=== PATIENT | female | born 1965 | race American Indian/Alaskan Native ===

== ENCOUNTER 2019-05-03 09:32 | Inpatient (IN) | payer OTHER ==
[2019-05-03] MEDS ORDERED: MAGNESIUM HYDROXIDE (MOM) ORAL LIQD UDC PO PRN (12:03)
[2019-05-03] MEDS ORDERED: oxyCODONE /ACETAMINOPHEN 5-325MG TAB PO PRN (12:03)
[2019-05-03] MEDS ORDERED: SODIUM BICARBONATE 325 MG TAB FEEDTUBE PRN (12:24)
[2019-05-03] MEDS ORDERED: LIPASE 10,500/PROTEASE 25,000/AMYLASE 43,750 (UNITS) DR CAP FEEDTUBE PRN (12:24)
[2019-05-03] MEDS ORDERED: SIMPLE SYRUP 15 ML FEEDTUBE PRN ×2 (12:24)
[2019-05-03] MEDS ORDERED: ALBUTEROL 2.5 MG/3 ML NEBU IH PRN (12:28)
[2019-05-03] MEDS ORDERED: ONDANSETRON 4 MG/2 ML INJ IV PRN (12:28)
[2019-05-03] MEDS ORDERED: MAGNESIUM HYDROXIDE (MOM) ORAL LIQD UDC FEEDTUBE PRN (12:42)
[2019-05-03] MEDS ORDERED: GABAPENTIN 300 MG CAP FEEDTUBE SCH (14:00)
[2019-05-03] MEDS: hydrALAZINE 25 MG TAB FEEDTUBE SCH (14:41)
[2019-05-03] MEDS: cloNIDine 0.2 MG TAB FEEDTUBE SCH ×2 (14:42→22:09)
[2019-05-03] MEDS: GABAPENTIN 500 MG/10 ML ORAL LIQD PO SCH ×2 (14:43→22:11)
--- NOTE | 2019-05-03 15:52 | History and Physical Report ---
History of Present Illness Date: 05/03/19 Date of admission: 05/03/19 12:58 Chief Complaint: CVA History of present illness: 53-year-old female who developed weakness in the right lower extremity and started having falls reported ED for further workup. 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 This is thought to possibly due to either cardioembolic versus endocarditis versus accelerated atherosclerotic disease secondary to radiation with a right I CA occlusion area echo showed ejection fraction 55% with grade 1 diastolic dysfunction and no PFO or valvular vegetations. Blood cultures showed no growth ruling out endocarditis. Patient was did not have atrial fibrillation in the hospital but has been referred to a it service continuity supervisor as an outpatient for Holter monitoring for 30 days. She developed acute kidney injury which improved with IV fluids. Review of the roughly 120 pages of documents provided showed that she refused regular tube feedings even though she has a PEG. Apparently she was approved for clear liquids but she states that she still feels like she aspirates when attempting this. She was using commercial [id number] ensure bottles for nutrition following that with water and apple juice. After discussing with her the pitfalls with this and the determining that her primary issue with the tube feeds was the pump apparatus that was being used we have opted to start her on bolus feeding. We'll follow up with labs in the morning. She notes that she was taking Ambien for sleep however did not help that well in the hospital. We'll try trazodone and monitor for improvement. Also notes that her shoulder has been fairly sore but does not necessarily point to the shoulder joint itself more so on the bicep. Discussed with the patient the prognosis of stroke as well as secondary stroke prevention. Also discussed discharge home, available caregivers, and return to work issues. Obtain further information into patient's poorly controlled blood pressure which has been treated both by her it service continuity supervisor and PCP. She stated that they have both been working diligently to try and control it better but her pressure has been slow to respond and somewhat labile. Uncertain if she is fully compliant with medication doses. While we have the luxury of having her here on service we will monitor her blood pressure closely and attempt to provide some assistance with better control and reduce the number of medications if possible. After the patient was medically stabilized they were transferred for further rehabilitation. All available medical records have been reviewed. Approximately 120 pages of records were reviewed prior to acceptance of the patient. Corrections were made in the plan of care based on notes are obtained from neurologist versus hospitalist recommendations. In all greater than 45 minutes [id number] prior to seeing the patient was utilized reviewing the paperwork and correcting errors noted upon transfer. Plan of care was discussed with patient. Past History Past Medical History: anemia, cancer (adenocarcinoma of the nasopharynx), hypertension Past Surgical History: appendectomy, Other (tubal ligation, PEG tube placement) Social history: Lives alone (1 level house, 2 steps to enter), full code. denies: smoking, alcohol abuse (occasional alcohol), prescription drug abuse, IV drug use Family history: hypertension Medications and Allergies Allergies Allergy/AdvReac Type Severity Reaction Status Date / Time meperidine HCl [From Demerol] Allergy Anaphylaxis Verified 07/27/13 10:18 Home Medications Medication Instructions Recorded Confirmed Last Taken Type cloNIDine [Catapres] 0.1 mg PO Q12HR #60 tablet 07/28/13 08/08/13 08/07/13 Rx ALBUTEROL Inhaler (OR & NICU) 2 inhalation PO PRN PRN 08/08/13 08/08/13 08/07/13 History [ProAir HFA Inhaler] Losartan [Cozaar] 100 mg PO BID 08/08/13 08/08/13 08/07/13 History carvediloL [Coreg] 3.125 mg PO BID 08/08/13 08/08/13 08/07/13 History metroNIDAZOLE [Flagyl TAB] 500 mg PO BID 08/08/13 08/08/13 08/07/13 History predniSONE 10 mg PO QDAY 08/08/13 08/08/13 08/07/13 History Active Meds: Active Medications Albuterol (Proventil) 2.5 mg IH Q4HRT PRN PRN Reason: Shortness Of Breath Amlodipine Besylate (Amlodipine) 10 mg FEEDTUBE QDAY [facility] Lipase/Protease/Amylase (Vasile Marsh 10,500 Unit) 1 each FEEDTUBE PRN PRN PRN Reason: For Clogged Feeding Tube Aspirin (Baby Aspirin) 81 mg FEEDTUBE QDAY [facility] Atorvastatin Calcium (Lipitor) 40 mg FEEDTUBE QHS [facility] Bisacodyl (Dulcolax) 10 mg MD QDAY PRN PRN Reason: Constipation unrelieved by MOM Carvedilol (Coreg) 25 mg FEEDTUBE BID [facility] Clonidine HCl (Catapres) 0.2 mg FEEDTUBE TID [facility] Last Admin: 05/03/19 14:42 Dose: Not Given Documented by: Clopidogrel Bisulfate (Plavix) 75 mg FEEDTUBE QDAY [facility] Diclofenac Sodium (Diclofenac 1%) 1 applic TP TID [facility] Stop: 05/13/19 19:59 Enoxaparin Sodium (Enoxaparin) 40 mg SUB-Q QDAY [facility] Gabapentin (Gabapentin) 100 mg PO Q8HR [facility] Last Admin: 05/03/19 14:43 Dose: Not Given Documented by: Hydralazine HCl (Apresoline) 50 mg FEEDTUBE Q8HR [facility] Last Admin: 05/03/19 14:41 Dose: Not Given Documented by: Magnesium Hydroxide (Milk Of Magnesia) 30 ml FEEDTUBE Q4H PRN PRN Reason: Constipation Ondansetron HCl (Zofran) 4 mg IV Q4H PRN PRN Reason: Nausea And Vomiting Oxycodone/Acetaminophen (Percocet 5/325) 1 tab FEEDTUBE Q6H PRN PRN Reason: Pain, Moderate (4-6) Simple Syrup (Simple Syrup) 15 ml FEEDTUBE PRN PRN PRN Reason: Hypoglycemia Simple Syrup (Simple Syrup) 30 ml FEEDTUBE PRN PRN PRN Reason: Hypoglycemia Sodium Bicarbonate (Sodium Bicarbonate) 325 mg FEEDTUBE PRN PRN PRN Reason: For Clogged Feeding Tube Trazodone HCl (Desyrel) 50 mg PO QHS [facility] Review of Systems All systems: negative (ROS negative for 12 systems except as noted below with pertinent positives and negatives.) Constitutional: other (insomnia), no fever Eyes: bilateral: blurred vision Ears, nose, mouth and throat: dysphagia Cardiovascular: no chest pain, no palpitations, no edema, no shortness of breath Respiratory: no cough, no shortness of breath, no wheezing Gastrointestinal: other (PEG tube), no abdominal pain, no nausea, no vomiting, no diarrhea, no constipation Musculoskeletal: arm numbness/tingling, leg numbness/tingling, gait dysfunction, other (right knee misbah) Integumentary: other (PEG tube), no rash, no pruritis, no redness Neurological: weakness, parathesias, gait dysfunction, no change in speech, no change in mentation, no sensory deficit Psychiatric: change in sleep habits, insomnia, no anxiety, no memory loss Hematologic/Lymphatic: other (anemia) Exam - Exam Narrative exam: MUSCULOSKELETAL SPECIALTY EXAM CONSTITUTIONAL: Well developed, well nourished, appropriately groomed. RIGHT hand dominant. LYMPHATIC: No appreciable abnormalities palpable in neck RESPIRATORY: Clear to auscultation bilaterally, no increased work of breathing CARDIOVASCULAR: Regular Rate/ Rhythm, no swelling, edema or tenderness in BUE or BLE. Pulses palpable in all extremities. All extremities warm. GI: + bowel sounds, soft, NTTP, nondistended. PEG tube present INTEGUMENTARY: Normal, no lesion, rash, masses or bruising noted in extremities. MUSCULOSKELETAL: Point tenderness to palpation at the right anterior shoulder, otherwise BUE and BLE normal without defect, crepitus, subluxation, effusion, arthritic changes or TTP. RUE 4-/5 RLE 2/5 LUE / LLE 5/5 ROM decreased on right, within functional limit on the left Tone normal NEURO: CN II : Visual dillard full to confrontation CN II, III : PERRL CN III, IV, : EOMI CN V : Facial sensation intact CN VII : Symmetric facial expressions and eye closure CN VIII : Hearing intact to finger rustle CN IX, X : Palate/uvula elevate midline, phonation normal CN XI : Intact shoulder shrug and head rotation CN XII : Tongue protrudes midline Sensation intact in all extremities without extinction. Reflexes 3+ on right and 2+ on left at biceps, brachioradialis and patella. 2 beats of clonus at right ankle. Coordination intact in BUE, no dysmetria noted. No tremor noted in 4 extremities. Naming and repetition intact. Follows 2 step commands. 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 Balance appears reasonable. Gait deferred until seen with therapy. PSYCH: Alert, oriented x3, affect appears flat. Insight appears intact. - Constitutional Vitals: Vital Signs - 12hr 05/03/19 05/03/19 05/03/19 13:59 14:01 14:06 Temperature 36.7 C 36.7 C 36.7 C Pulse Rate 80 80 Pulse Rate [ 80 Left] Respiratory 18 18 18 Rate Blood Pressure Blood Pressure 109/64 [Left Arm] Blood Pressure 109/64 [Left] Blood Pressure 109/64 [Right] O2 Sat by Pulse 96 96 Oximetry 05/03/19 05/03/19 14:41 14:42 Temperature Pulse Rate Pulse Rate [ Left] Respiratory Rate Blood Pressure 109/64 109/64 Blood Pressure [Left Arm] Blood Pressure [Left] Blood Pressure [Right] O2 Sat by Pulse Oximetry Assessment and Plan Assessment and plan: Patient was assessed and evaluated for Acute Inpatient Rehab Unit. Due to the patients above-mentioned medical complexity, along with decreased functional mobility and self care, this patient continues to require and be appropriate for a comprehensive, multidisciplinary [id number] rehabilitati on program. These needs cannot be met in an outpatient or other less intensive setting. The patient would continue to benefit from skilled therapy intervention for at least 3 hours per day, five days a week, with techniques specific to the needs of the patient to improve function, activities of daily living, and reintegration into the community. The patient continues to require: -- OT to improve ROM, self-care, and learn use of adaptive equipment -- PT to improve strength and balance, functional transfers, and ambulation with energy conservation techniques to improve functional mobility -- UROLOGY SURGEON to address cognitive deficits and swallowing ability -- 24 hour RN to ensure and prevent skin breakdown, promote progressive independence while ensuring safety, ensure education regarding medications, and incorporation of the rehabilitation at the bedside -- 24 hour Configuration Analyst to coordinate this interdisciplinary program, and to manage/prevent complications as a result of the patients medical comorbidities. -Plan of care by day 4 -Weekly team conferences With such a program, there is a reasonable certainty that the goals individualized for this patient can be achieved within the specified length of stay. CVA dominant right luis m-paresis: Continue secondary stroke prevention (antithrombotic, statin (goal LDLsee less than 70), BP control (goal less than 140/90), glucose control (goal A1c less than 7), and lifestyle modification). Monitor for recurrent stroke or poststroke recrudescence. Continue neuromotor therapy as above. Family training when available. Monitor for post stroke depression, cognitive effects, seizure, dysfunction, aphasia, shoulder-hand syndrome, sensory deficits, spasticity, bowel/bladder deficits, sleep disturbance, vision deficits and DVT. Prognosis for recovery and secondary stroke prevention discussed. Follow-up with neurology at discharge. No driving until cleared by neurologist. Dysphagia: Continue PEG tube feedings. 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 We will D for retesting for swallowing. Patient notes that GI attempted esophageal dilatation however could not accomplish this. May be able to reattempt at a later date. Hypertension: Labile and poorly controlled. Both PCP and it service continuity supervisor working diligently on this as outpatient. We'll continue to attempt to control with this few meds possible. Blood pressure checks every 4 hours while awake. Hold orders placed on all antihypertensives. Left shoulder pain: Start Voltaren gel monitor for improvement. Ranging and strengthening per OT. Modalities as needed. Asthma: Continue albuterol nebulizers when necessary. Insomnia: Not better with Ambien at outside hospital. We'll start trazodone instead and monitor for improvement. Anemia: Monitor and replace components as needed. Transfusion for hemoglobin less than 7 Nutrition: Continue PEG feeds with bolus feeding. Dietitian consulted. Water flushes to avoid dehydration. Monitor labs on a frequent basis. PEG care per protocol. Z73.6 ADL dysfunction: OT will work on improving ability to perform ADLs (including assistive devices) to increase independence and decrease caregiver burden and improve functional transfers and mobility training. R26.2 Difficulty walking: PT will work on gait training and proper use of assistive devices and advance as appropriate to use of stairs and outside ambulation on uneven surfaces. R26.81 Unsteadiness on feet: PT will work on improving static and dynamic sitting and standing balance as well as proper use of assistive devices to decrease risk of falls. R26.89 Abnormality of gait: PT will work to improve safety and efficiency of gait through neuromotor training and gait training along with instruction on proper use of assistive devices. M62.81 Muscle weakness: PT & OT will work on strengthening exercises to improve functional strength including mixture of closed and open kinetic chain exercises. R53.81 Debility: PT & OT will work on improving overall functional status to improve participation with ADLs, mobility and social involvement. R53.83 Fatigue: PT & OT will work on improving endurance through aerobic exercises and therapeutic activity while monitoring patients tolerance for activity and vital signs as needed. DVT ppx: Lovenox, monitor closely for bleeding as she is on Plavix and aspirin as well Pain: Continue physical modalities in therapy and pain medications as needed to achieve functional pain control. Sleep: Monitor and address as needed. Bowel: Monitor and address as needed. Appetite: Monitor and address as needed. Discharge planning: Pending therapy progress and care plan meeting. Will continue discussion with therapy team, SW, patient and family. Restrictions/ Precautions: Falls, aspiration (NPO) WB status: FWB Functional Hx: ADLs: Independent Cognition: Independent Mobility: No AD Barriers to Discharge: Decreased mobility and ability to perform self care, balance deficits, weakness Estimated Length of Stay: 14-21 days Discharge Destination: Home alone with daughter to assist at discharge POST ADMISSION PHYSICIAN EVALUATION I have examined the patient and find that functional status, medical condition and appropriateness for IRF admission are essentially unchanged from those described in the preadmission screening. Will monitor for worsening CVA, neurlog ic decline, shoulder hand syndrone, post stroke depression, sleep disturbance, nutritional deficits, DVT/PE, bowel and bladder complications and complications due to hypertension, anemia, bleeding, renal dysfunction and electrolyte abnormalities. Will attempt to avoid occurrence of these issues or treat them if they present themselves.
[2019-05-03] MEDS: traZODone 50 MG TAB PO SCH (22:09)
[2019-05-03] MEDS: carvediloL 25 MG TAB FEEDTUBE SCH (22:10)
[2019-05-03] MEDS: DICLOFENAC SODIUM 1% TOPICAL GEL 100 GM TP SCH (22:13)
[2019-05-04] MEDS: hydrALAZINE 25 MG TAB FEEDTUBE SCH ×4 (04:11→22:28)
[2019-05-04] MEDS: GABAPENTIN 500 MG/10 ML ORAL LIQD PO SCH ×3 (06:10→22:33)
[2019-05-04] MEDS ORDERED: ENOXAPARIN 40 MG/0.4 ML INJ SUB-Q SCH (08:00)
--- NOTE | 2019-05-04 09:47 | Progress Note ---
Subjective Date of service: 05/04/19 Principal diagnosis: CVA Interval history: 53-year-old female who developed weakness in the right lower extremity and started having falls reported ED for further workup. 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 This is thought to possibly due to either cardioembolic versus endocarditis versus accelerated atherosclerotic disease secondary to radiation with a right ICA occlusion area echo showed ejection fraction 55% with grade 1 diastolic dysfunction and no PFO or valvular vegetations. Blood cultures showed no growth ruling out endocarditis. Patient was did not have atrial fibrillation in the hospital but has been referred to a reinforcement maker as an outpatient for Holter monitoring for 30 days. She developed acute kidney injury which improved with IV fluids. Review of the roughly 120 pages of documents provided showed that she refused regular tube feedings even though she has a PEG. Apparently she was approved for clear liquids but she states that she still feels like she aspirates when attempting this. She was using commercial [id number] ensure bottles for nutrition following that with water and apple juice. After discussing with her the pitfalls with this and the determining that her primary issue with the tube feeds was the pump apparatus that was being used we have opted to start her on bolus feeding. We'll follow up with labs in the morning. She notes that she was taking Ambien for sleep however did not help that well in the hospital. We'll try trazodone and monitor for improvement. Also notes that her shoulder has been fairly sore but does not necessarily point to the shoulder joint itself more so on the bicep. Patient is participating in therapy and making reasonable progress. Slept well last night on trazodone. Taking rest breaks as needed. -BM. Denies pain, palpitations, dyspnea, cough, N/V. States she was told not to get PEG wet - inserted Feb, needs to be cleaned, ok to shower. Tolerating feedings via bolus. Will monitor progress with therapy today. Labs pending All records, vitals, labs and medications were reviewed. No other issues per patient, nursing or therapy. Objective - Exam Narrative Exam: MUSCULOSKELETAL SPECIALTY EXAM CONSTITUTIONAL: Well developed, well nourished, appropriately groomed. RIGHT hand dominant. RESPIRATORY: Clear to auscultation bilaterally, no increased work of breathing CARDIOVASCULAR: Regular Rate/ Rhythm, no swelling, edema or tenderness in BUE or BLE. All extremities warm. GI: + bowel sounds, soft, NTTP, nondistended. PEG tube present INTEGUMENTARY: Normal, no lesion, rash, masses or bruising noted in extremities. MUSCULOSKELETAL: Point tenderness to palpation at the right anterior shoulder, otherwise BUE and BLE normal without defect, crepitus, subluxation, effusion, arthritic changes or TTP. RUE 4-/5 RLE 2/5 LUE / LLE 5/5 ROM decreased on right, within functional limit on the left Tone normal NEURO: CN II - XII grossly intact Sensation intact in all extremities without extinction. Coordination intact in BUE. No tremor noted in 4 extremities. Naming and repetition intact. Follows 2 step commands. 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 Balance appears reasonable. Gait deferred until seen with therapy. PSYCH: Alert, oriented x3, affect appears flat. Insight appears intact. - Constitutional Vitals: Vital Signs - 12hr 05/03/19 05/03/19 05/03/19 22:09 22:10 23:26 Temperature 36.4 C L Pulse Rate 77 77 72 Respiratory 16 Rate Blood Pressure 140/81 140/81 94/58 Blood Pressure [Left] O2 Sat by Pulse 97 Oximetry 05/04/19 05/04/19 06:02 06:54 Temperature 36.6 C 36.7 C Pulse Rate 66 70 Respiratory 16 20 Rate Blood Pressure 123/71 Blood Pressure 123/72 [Left] O2 Sat by Pulse 100 99 Oximetry - Allied health notes Allied health notes reviewed: nursing, ST Assessment and Plan CVA dominant right luis m-paresis: Continue secondary stroke prevention (antithrombotic, statin (goal LDLsee less than 70), BP control (goal less than 140/90), glucose control (goal A1c less than 7), and lifestyle modification). Monitor for recurrent stroke or poststroke recrudescence. Continue neuromotor therapy as above. Family training when available. Monitor for post stroke depression, cognitive effects, seizure, dysfunction, aphasia, shoulder-hand syndrome, sensory deficits, spasticity, bowel/bladder deficits, sleep disturbance, vision deficits and DVT. Prognosis for recovery and secondary stroke prevention discussed. Follow-up with neurology at discharge. No driving until cleared by neurologist. Dysphagia: Continue PEG tube feedings. 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 We will D for retesting for swallowing. Patient notes that GI attempted esophageal dilatation however could not accomplish this. May be able to reattempt at a later date. Hypertension: Labile and poorly controlled. Both PCP and reinforcement maker working diligently on this as outpatient. We'll continue to attempt to control with this few meds possible. Blood pressure checks every 4 hours while awake. Hold orders placed on all antihypertensives. Left shoulder pain: Start Voltaren gel monitor for improvement. Ranging and strengthening per OT. Modalities as needed. Asthma: Continue albuterol nebulizers when necessary. Insomnia: Not better with Ambien at outside hospital. We'll start trazodone instead and monitor for improvement. Anemia: Monitor and replace components as needed. Transfusion for hemoglobin less than 7 Nutrition: Continue PEG feeds with bolus feeding. Dietitian consulted. Water flushes to avoid dehydration. Monitor labs on a frequent basis. PEG care per protocol. Z73.6 ADL dysfunction: OT will work on improving ability to perform ADLs (including assistive devices) to increase independence and decrease caregiver burden and improve functional transfers and mobility training. R26.2 Difficulty walking: PT will work on gait training and proper use of assistive devices and advance as appropriate to use of stairs and outside ambulation on uneven surfaces. R26.81 Unsteadiness on feet: PT will work on improving static and dynamic sitting and standing balance as well as proper use of assistive devices to decrease risk of falls. R26.89 Abnormality of gait: PT will work to improve safety and efficiency of gait through neuromotor training and gait training along with instruction on proper use of assistive devices. M62.81 Muscle weakness: PT & OT will work on strengthening exercises to improve functional strength including mixture of closed and open kinetic chain exercises. R53.81 Debility: PT & OT will work on improving overall functional status to improve participation with ADLs, mobility and social involvement. R53.83 Fatigue: PT & OT will work on improving endurance through aerobic exercises and therapeutic activity while monitoring patients tolerance for activity and vital signs as needed. DVT ppx: Lovenox, monitor closely for bleeding as she is on Plavix and aspirin as well Pain: Continue physical modalities in therapy and pain medications as needed to achieve functional pain control. Sleep: Monitor and address as needed. Bowel: Monitor and address as needed. Appetite: Monitor and address as needed. Discharge planning: Pending therapy progress and care plan meeting. Will continue discussion with therapy team, SW, patient and family. Restrictions/ Precautions: Falls, aspiration (NPO) WB status: FWB Functional Hx: ADLs: Independent Cognition: Independent Mobility: No AD Barriers to Discharge: Decreased mobility and ability to perform self care, balance deficits, weakness Estimated Length of Stay: 14-21 days Discharge Destination: Home alone with daughter to assist at discharge
[2019-05-04] MEDS: DICLOFENAC SODIUM 1% TOPICAL GEL 100 GM TP SCH ×3 (10:46→22:38)
[2019-05-04] MEDS: CLOPIDOGREL 75 MG TAB FEEDTUBE SCH (10:47)
[2019-05-04] MEDS: ASPIRIN 81 MG TAB CHEW FEEDTUBE SCH (10:48)
[2019-05-04] MEDS: amLODIPine 10 MG TAB FEEDTUBE SCH (10:48)
[2019-05-04] MEDS: carvediloL 25 MG TAB FEEDTUBE SCH ×2 (10:48→22:28)
[2019-05-04] MEDS: cloNIDine 0.2 MG TAB FEEDTUBE SCH ×3 (10:48→22:28)
[2019-05-04] MEDS: oxyCODONE /ACETAMINOPHEN 5-325MG TAB FEEDTUBE PRN ×2 (13:43→22:33)
[2019-05-04 15:25] LABS: Basophils % (Auto) 0.5 % (0.0-1.8); Eosinophils # (Auto) 0.1 K/mm3 (0.0-0.4); Eosinophils % (Auto) 1.9 % (0.0-4.3); Hematocrit 30.4 % (30.3-42.9); Hemoglobin 10.4 gm/dl (10.1-14.3); Lymphocytes # (Auto) 0.4 K/mm3 (1.2-5.4); Lymphocytes % (Auto) 15.5 % (13.4-35.0); Mean Corpuscular HGB Conc 34 % (30-34); Mean Corpuscular Volume 90 fl (79-97); Monocytes # (Auto) 0.3 K/mm3 (0.0-0.8); Monocytes % (Auto) 12.3 % (0.0-7.3); Platelet Count 208 K/mm3 (140-440); Red Blood Count 3.36 M/mm3 (3.65-5.03); Red Cell Distribution Width 14.5 % (13.2-15.2)
[2019-05-04 16:45] LABS: Albumin 3.4 g/dL (3.9-5); Calcium 9.2 mg/dL (8.4-10.2); Prealbumin 0.308 g/L (0.200-0.400)
[2019-05-04] MEDS: traZODone 50 MG TAB PO SCH (22:27)
[2019-05-05] MEDS: hydrALAZINE 25 MG TAB FEEDTUBE SCH (05:07)
[2019-05-05] MEDS: GABAPENTIN 500 MG/10 ML ORAL LIQD PO SCH ×2 (05:08→14:52)
[2019-05-05] MEDS: DICLOFENAC SODIUM 1% TOPICAL GEL 100 GM TP SCH ×2 (08:44→15:49)
[2019-05-05] MEDS: carvediloL 25 MG TAB FEEDTUBE SCH ×2 (08:53→22:01)
[2019-05-05] MEDS: cloNIDine 0.2 MG TAB FEEDTUBE SCH ×3 (08:54→22:59)
[2019-05-05] MEDS: amLODIPine 10 MG TAB FEEDTUBE SCH (08:55)
[2019-05-05] MEDS: CLOPIDOGREL 75 MG TAB FEEDTUBE SCH (10:24)
[2019-05-05] MEDS: ASPIRIN 81 MG TAB CHEW FEEDTUBE SCH (10:24)
--- NOTE | 2019-05-05 11:01 | Progress Note ---
Subjective Date of service: 05/05/19 Principal diagnosis: CVA Interval history: 53-year-old female who developed weakness in the right lower extremity and started having falls reported ED for further workup. 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 This is thought to possibly due to either cardioembolic versus endocarditis versus accelerated atherosclerotic disease secondary to radiation with a right ICA occlusion area echo showed ejection fraction 55% with grade 1 diastolic dysfunction and no PFO or valvular vegetations. Blood cultures showed no growth ruling out endocarditis. Patient was did not have atrial fibrillation in the hospital but has been referred to a [facility] as an outpatient for Holter monitoring for 30 days. She developed acute kidney injury which improved with IV fluids. Review of the roughly 120 pages of documents provided showed that she refused regular tube feedings even though she has a PEG. Apparently she was approved for clear liquids but she states that she still feels like she aspirates when attempting this. She was using commercial [id number] ensure bottles for nutrition following that with water and apple juice. After di scussing with her the pitfalls with this and the determining that her primary issue with the tube feeds was the pump apparatus that was being used we have opted to start her on bolus feeding. We'll follow up with labs in the morning. She notes that she was taking Ambien for sleep however did not help that well in the hospital. We'll try trazodone and monitor for improvement. Also notes that her shoulder has been fairly sore but does not necessarily point to the shoulder joint itself more so on the bicep. Patient is participating in therapy and making reasonable progress. Slept well last night on trazodone. Taking rest breaks as needed. -BM. Patient has when necessary's available, asked nursing to provide these. Blood pressure has been running lower and meds have been held. We will DC hydralazine and look to adjust other medications as possible. Suspect there was some noncompliance involved previously. Right shoulder pain. Decrease ability to tolerate passive ROM. Previous fall before CVA. Will check XR to look for fracture. Denies palpitations, dyspnea, cough, N/V. Tolerating feedings via bolus. Labs reviewed, late results from yesterday. Have stopped Lovenox and changed to heparin due to renal function. Discussed today during team conference. Just completed E valves yesterday. We'll continue to work with the patient for estimated length of stay of 14-21 days. Further updates with more time during therapy. All records, vitals, labs and medications were reviewed. No other issues per patient, nursing or therapy. Objective - Exam Narrative Exam: MUSCULOSKELETAL SPECIALTY EXAM CONSTITUTIONAL: Well developed, well nourished, appropriately groomed. RIGHT hand dominant. RESPIRATORY: Clear to auscultation bilaterally, no increased work of breathing CARDIOVASCULAR: Regular Rate/ Rhythm, no swelling, edema or tenderness in BUE or BLE. All extremities warm. GI: + bowel sounds, soft, NTTP, nondistended. PEG tube present INTEGUMENTARY: Normal, no lesion, rash, masses or bruising noted in extremities. MUSCULOSKELETAL: Point tenderness to palpation at the right anterior shoulder, otherwise BUE and BLE normal without defect, crepitus, subluxation, effusion, arthritic changes or TTP. RUE 4-/5 RLE 2/5 LUE / LLE 5/5 ROM decreased on right, within functional limit on the left Tone normal NEURO: CN II - XII grossly intact Sensation intact in all extremities without extinction. Coordination intact in BUE. No tremor noted in 4 extremities. Naming and repetition intact. Follows 2 step commands. 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 Balance appears reasonable. Gait deferred until seen with therapy. PSYCH: Alert, oriented x3, affect appears flat. Insight appears intact. - Constitutional Vitals: Vital Signs - 12hr 05/05/19 05/05/19 05/05/19 00:53 04:28 04:45 Temperature 36.3 C L 36.4 C L 36.6 C Pulse Rate 79 48 L Respiratory 16 16 Rate Blood Pressure 91/59 108/73 O2 Sat by Pulse 98 98 Oximetry 05/05/19 05/05/19 05:07 08:10 Temperature 36.7 C Pulse Rate 77 Respiratory 18 Rate Blood Pressure 108/73 102/62 O2 Sat by Pulse 98 Oximetry - Allied health notes Allied health notes reviewed: nursing, PT, ST, OT FIMS assessment as documented by PT/OT/ST: Locomotion- walk/wheelchair Ambulation Distance 25 - Labs CBC & Chem 7: 05/04/19 15:10 05/04/19 15:10 Labs: Laboratory Results - last 72 hr 05/04/19 05/04/19 05/05/19 15:10 15:10 08:21 WBC 2.7 L RBC 3.36 L Hgb 10.4 Hct 30.4 MCV 90 MCH 31 MCHC 34 RDW 14.5 Plt Count 208 Lymph % (Auto) 15.5 [place] % (Auto) 12.3 H Eos % (Auto) 1.9 Baso % (Auto) 0.5 Lymph # 0.4 L [place] # 0.3 Eos # 0.1 Baso # 0.0 Seg Neutrophils % 69.8 Seg Neutrophils # 1.9 Sodium 135 L Potassium 4.5 Chloride 97.4 L Carbon Dioxide 24 Anion Gap 18 BUN 26 H Creatinine 1.5 H Estimated GFR 44 BUN/Creatinine Ratio 17 Glucose 177 H POC Glucose 109 H Calcium 9.2 Phosphorus 3.50 Magnesium 2.10 Total Bilirubin 0.20 AST 19 ALT 16 Alkaline Phosphatase 87 Total Protein 7.1 Albumin 3.4 L Albumin/Globulin Ratio 0.9 Prealbumin 0.308 Assessment and Plan CVA dominant right luis m-paresis: Continue secondary stroke prevention (antithrombotic, statin (goal LDLsee less than 70), BP control (goal less than 140/90), glucose control (goal A1c less than 7), and lifestyle modification). Monitor for recurrent stroke or poststroke recrudescence. Continue neuromotor therapy as above. Family training when available. Monitor for post stroke depression, cognitive effects, seizure, dysfunction, aphasia, shoulder-hand syndrome, sensory deficits, spasticity, bowel/bladder deficits, sleep disturbance, vision deficits and DVT. Prognosis for recovery and secondary stroke prevention discussed. Follow-up with neurology at discharge. No driving until cleared by neurologist. Dysphagia: Continue PEG tube feedings. 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 We will D for retesting for swallowing. Patient notes that GI attempted esophageal dilatation however could not accomplish this. May be able to reattempt at a later date. Hypertension: Labile and poorly controlled. Both PCP and [facility] working diligently on this as outpatient. We'll continue to attempt to control with this few meds possible. Blood pressure checks every 4 hours while awake. Hold orders placed on all antihypertensives. Stop hydralazine. Left shoulder pain: Start Voltaren gel monitor for improvement. Ranging and strengthening per OT. Modalities as needed. X-ray right shoulder. Asthma: Continue albuterol nebulizers when necessary. Insomnia: Not better with Ambien at outside hospital. Seems to be improved with trazodone, continue to monitor Anemia: Monitor and replace components as needed. Transfusion for hemoglobin less than 7 Nutrition: Continue PEG feeds with bolus feeding. Dietitian consulted. Water flushes to avoid dehydration. Monitor labs on a frequent basis. PEG care per protocol. Z73.6 ADL dysfunction: OT will work on improving ability to perform ADLs (including assistive devices) to increase independence and decrease caregiver b urden and improve functional transfers and mobility training. R26.2 Difficulty walking: PT will work on gait training and proper use of assistive devices and advance as appropriate to use of stairs and outside ambulation on uneven surfaces. R26.81 Unsteadiness on feet: PT will work on improving static and dynamic sitting and standing balance as well as proper use of assistive devices to decrease risk of falls. R26.89 Abnormality of gait: PT will work to improve safety and efficiency of gait through neuromotor training and gait training along with instruction on proper use of assistive devices. M62.81 Muscle weakness: PT & OT will work on strengthening exercises to improve functional strength including mixture of closed and open kinetic chain exercises. R53.81 Debility: PT & OT will work on improving overall functional status to improve participation with ADLs, mobility and social involvement. R53.83 Fatigue: PT & OT will work on improving endurance through aerobic exercises and therapeutic activity while monitoring patients tolerance for activity and vital signs as needed. DVT ppx: Heparin, monitor closely for bleeding as she is on Plavix and aspirin as well Pain: Continue physical modalities in therapy and pain medications as needed to achieve functional pain control. Sleep: Monitor and address as needed. Bowel: Monitor and address as needed. Appetite: Monitor and address as needed. Discharge planning: Pending therapy progress and care plan meeting. Will continue discussion with therapy team, SW, patient and family. Restrictions/ Precautions: Falls, aspiration (NPO) WB status: FWB Functional Hx: ADLs: Independent Cognition: Independent Mobility: No AD Barriers to Discharge: Decreased mobility and ability to perform self care, balance deficits, weakness Estimated Length of Stay: 14-21 days Discharge Destination: Home alone with daughter to assist at discharge
[2019-05-05] MEDS ORDERED: hydrALAZINE 20 MG/1 ML INJ IV PRN (11:57)
--- NOTE | 2019-05-05 15:13 | XRay Report ---
RIGHT SHOULDER HISTORY: Pain and decreased range of motion. COMPARISON: None. TECHNIQUE: 3 views of the right shoulder were obtained. FINDINGS: Bones: No fracture or dislocation. Joint spaces: Maintained. Mild degenerative change. Soft tissues: No significant abnormality. Additional findings: None. IMPRESSION: 1. No significant abnormality. Signer Name: Lex Finn MD Signed: 05/05/2019 3:08 PM Workstation Name: [id number]
[2019-05-05] MEDS: HEPARIN 5,000 UNIT/1 ML VIAL SUB-Q SCH ×2 (16:45→23:01)
[2019-05-05] MEDS: oxyCODONE /ACETAMINOPHEN 5-325MG TAB FEEDTUBE PRN (16:59)
[2019-05-05] MEDS: traZODone 50 MG TAB PO SCH (23:00)
[2019-05-06] MEDS: oxyCODONE /ACETAMINOPHEN 5-325MG TAB FEEDTUBE PRN ×2 (00:11→11:42)
[2019-05-06] MEDS: GABAPENTIN 500 MG/10 ML ORAL LIQD PO SCH ×2 (00:16→07:46)
[2019-05-06] MEDS: DICLOFENAC SODIUM 1% TOPICAL GEL 100 GM TP SCH ×4 (00:17→20:00)
[2019-05-06] MEDS: HEPARIN 5,000 UNIT/1 ML VIAL SUB-Q SCH ×3 (07:45→22:08)
--- NOTE | 2019-05-06 09:56 | Progress Note ---
Subjective Date of service: 05/06/19 Principal diagnosis: CVA Interval history: 53-year-old female who developed weakness in the right lower extremity and started having falls reported ED for further workup. 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 This is thought to possibly due to either cardioembolic versus endocarditis versus accelerated atherosclerotic disease secondary to radiation with a right ICA occlusion area echo showed ejection fraction 55% with grade 1 diastolic dysfunction and no PFO or valvular vegetations. Blood cultures showed no growth ruling out endocarditis. Patient was did not have atrial fibrillation in the hospital but has been referred to a [facility] as an outpatient for Holter monitoring for 30 days. She developed acute kidney injury which improved with IV fluids. Review of the roughly 120 pages of documents provided showed that she refused regular tube feedings even though she has a PEG. Apparently she was approved for clear liquids but she states that she still feels like she aspirates when attempting this. She was using commercial [id number] ensure bottles for nutrition following that with water and apple juice. After di scussing with her the pitfalls with this and the determining that her primary issue with the tube feeds was the pump apparatus that was being used we have opted to start her on bolus feeding. We'll follow up with labs in the morning. She notes that she was taking Ambien for sleep however did not help that well in the hospital. We'll try trazodone and monitor for improvement. Also notes that her shoulder has been fairly sore but does not necessarily point to the shoulder joint itself more so on the bicep. Patient is participating in therapy and making reasonable progress. Tolerating trazodone, did not sleep as well last night. Taking rest breaks as needed. - BM. Patient has PRN available, but not being offered. Will schedule miralax. Antihypertensives held, vitals not in vitals section, in nurses note but not identified with time. Discussed with nursing and asked that vitals be checked Q4h as ordered, charted under vitals and medication parameters to be followed. Nursing is welcome to call if they feel uncomfortable giving a medication and discuss it with me. BP is pretty labile in this patient previously and I am attempting to regulate it on a regular schedule before she is discharged. Right shoulder pain continues. Decreased ability to tolerate passive ROM. Pre vious fall before CVA. XR reviewed and shows no fracture, there is OA. Continue to improve ROM, strengthening and Voltaren gel. Increased secretions due to radiation. Will arrange for bedside suction - she uses it at home as well. Denies palpitations, dyspnea, cough, N/V. Tolerating feedings via bolus. Labs reviewed. All records, vitals, labs and medications were reviewed. No other issues per patient, nursing or therapy. Objective - Exam Narrative Exam: MUSCULOSKELETAL SPECIALTY EXAM CONSTITUTIONAL: Well developed, well nourished, appropriately groomed. RIGHT hand dominant. RESPIRATORY: Clear to auscultation bilaterally, no increased work of breathing CARDIOVASCULAR: Regular Rate/ Rhythm, no swelling, edema or tenderness in BUE or BLE. All extremities warm. GI: + bowel sounds, soft, NTTP, nondistended. PEG tube present Increased Oral secretions INTEGUMENTARY: Normal, no lesion, rash, masses or bruising noted in extremities. MUSCULOSKELETAL: Point tenderness to palpation at the right anterior shoulder, otherwise BUE and BLE normal without defect, crepitus, subluxation, effusion, arthritic changes or TTP. RUE 4-/5 RLE 2/5 LUE / LLE 5/5 ROM decreased on right, within functional limit on the left Tone normal NEURO: CN II - XII grossly intact Sensation intact in all extremities without extinction. Coordination intact in BUE. No tremor noted in 4 extremities. Naming and repetition intact. Follows 2 step commands. 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 Balance appears reasonable. Gait deferred until seen with therapy. PSYCH: Alert, oriented x3, affect appears flat. Insight appears intact. - Constitutional Vitals: Vital Signs - 12hr 05/06/19 05/06/19 05/06/19 00:22 04:26 05:03 Temperature 36.4 C 36.6 C Pulse Rate 77 73 74 Respiratory 16 16 Rate Blood Pressure 141/82 Blood Pressure 116/72 [Right] O2 Sat by Pulse 98 97 98 Oximetry 05/06/19 08:24 Temperature 36.6 C Pulse Rate 79 Respiratory 18 Rate Blood Pressure 166/86 Blood Pressure [Right] O2 Sat by Pulse 100 Oximetry - Allied health notes Allied health notes reviewed: nursing, PT, OT FIMS assessment as documented by PT/OT/ST: Social interaction/Memory/Problem solving Memory FIM Score 5. Supervision (Needs cueing <10%, stressful/ unfamiliar situations.) Problem Solving FIM Score 5. Supervision (Needs cueing <10% to solve routine problems.) Locomotion- walk/wheelchair Ambulation Distance 25 - Labs CBC & Chem 7: 05/04/19 15:10 05/04/19 15:10 Labs: Laboratory Results - last 72 hr 05/04/19 05/04/19 05/05/19 15:10 15:10 08:21 WBC 2.7 L RBC 3.36 L Hgb 10.4 Hct 30.4 MCV 90 MCH 31 MCHC 34 RDW 14.5 Plt Count 208 Lymph % (Auto) 15.5 [place] % (Auto) 12.3 H Eos % (Auto) 1.9 Baso % (Auto) 0.5 Lymph # 0.4 L [place] # 0.3 Eos # 0.1 Baso # 0.0 Seg Neutrophils % 69.8 Seg Neutrophils # 1.9 Sodium 135 L Potassium 4.5 Chloride 97.4 L Carbon Dioxide 24 Anion Gap 18 BUN 26 H Creatinine 1.5 H Estimated GFR 44 BUN/Creatinine Ratio 17 Glucose 177 H POC Glucose 109 H Calcium 9.2 Phosphorus 3.50 Magnesium 2.10 Total Bilirubin 0.20 AST 19 ALT 16 Alkaline Phosphatase 87 Total Protein 7.1 Albumin 3.4 L Albumin/Globulin Ratio 0.9 Prealbumin 0.308 Assessment and Plan CVA dominant right luis m-paresis: Continue secondary stroke prevention (antithrombotic, statin (goal LDLsee less than 70), BP control (goal less than 140/90), glucose control (goal A1c less than 7), and lifestyle modification). Monitor for recurrent stroke or poststroke recrudescence. Continue neuromotor therapy as above. Family training when available. Monitor for post stroke depression, cognitive effects, seizure, dysfunction, aphasia, shoulder-hand syndrome, sensory deficits, spasticity, bowel/bladder deficits, sleep disturbance, vision deficits and DVT. Prognosis for recovery and secondary stroke prevention discussed. Follow-up with neurology at discharge. No driving until cleared by neurologist. Dysphagia: Continue PEG tube feedings. 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 We will D for retesting for swallowing. Patient notes that GI attempted esophageal dilatation however could not accomplish this. May be able to reattempt at a later date. Hypertension: Labile and poorly controlled. Both PCP and skylights assembler working diligently on this as outpatient. We'll continue to attempt to control with this few meds possible. Blood pressure checks every 4 hours while awake. Hold orders placed on all antihypertensives. Hydralazine prn only now. Left shoulder pain: Start Voltaren gel monitor for improvement. Ranging and strengthening per OT. Modalities as needed. X-ray right shoulder NEG for Fx, OA. Asthma: Continue albuterol nebulizers when necessary. Insomnia: Not better with Ambien at outside hospital. Seems to be improved with trazodone, continue to monitor Anemia: Monitor and replace components as needed. Transfusion for hemoglobin less than 7 Nutrition: Continue PEG feeds with bolus feeding. Dietitian consulted. Water flushes to avoid dehydration. Monitor labs on a frequent basis. PEG care per protocol. Z73.6 ADL dysfunction: OT will work on improving ability to perform ADLs (including assistive devices) to increase independence and decrease caregiver burden and improve functional transfers and mobility training. R26.2 Difficulty walking: PT will work on gait training and proper use of assistive devices and advance as appropriate to use of stairs and outside ambulation on uneven surfaces. R26.81 Unsteadiness on feet: PT will work on improving static and dynamic sitting and standing balance as well as proper use of assistive devices to decrease risk of falls. R26.89 Abnormality of gait: PT will work to improve safety and efficiency of gait through neuromotor training and gait training along with instruction on proper use of assistive devices. M62.81 Muscle weakness: PT & OT will work on strengthening exercises to improve functional strength including mixture of closed and open kinetic chain exercises. R53.81 Debility: PT & OT will work on improving overall functional status to improve participation with ADLs, mobility and social involvement. R53.83 Fatigue: PT & OT will work on improving endurance through aerobic exercises and therapeutic activity while monitoring patients tolerance for activity and vital signs as needed. DVT ppx: Heparin, monitor closely for bleeding as she is on Plavix and aspirin as well Pain: Continue physical modalities in therapy and pain medications as needed to achieve functional pain control. Sleep: Monitor and address as needed. Bowel: Monitor and address as needed. Appetite: Monitor and address as needed. Discharge planning: Pending therapy progress and care plan meeting. Will continue discussion with therapy team, SW, patient and family. Restrictions/ Precautions: Falls, aspiration (NPO) WB status: FWB Functional Hx: ADLs: Independent Cognition: Independent Mobility: No AD Barriers to Discharge: Decreased mobility and ability to perform self care, gerson nce deficits, weakness Estimated Length of Stay: 14-21 days Discharge Destination: Home alone with daughter to assist at discharge
[2019-05-06] MEDS: POLYETHYLENE GLYCOL 3350 17 GM POWDER FEEDTUBE SCH (11:41)
[2019-05-06] MEDS: amLODIPine 10 MG TAB FEEDTUBE SCH (11:41)
[2019-05-06] MEDS: cloNIDine 0.2 MG TAB FEEDTUBE SCH ×3 (11:42→22:07)
[2019-05-06] MEDS: CLOPIDOGREL 75 MG TAB FEEDTUBE SCH (11:42)
[2019-05-06] MEDS: ASPIRIN 81 MG TAB CHEW FEEDTUBE SCH (11:42)
[2019-05-06] MEDS: carvediloL 25 MG TAB FEEDTUBE SCH ×2 (11:43→22:05)
--- NOTE | 2019-05-06 11:48 | IRU Plan of Care ---
Interdisciplinary Plan of Care - IP IRU INTERDISCIPLINARY PLAN: [facility] Inpatient Rehab Unit Plan of Care IRU Interdisciplinary Care Plan Start: 05/03/19 13:07 Freq: Admission then PRN Status: Active Protocol: Document 05/06/19 10:39 TH (Rec: 05/06/19 10:44 TH [id number]) Interdisciplinary Problem List Interdisciplinary Problem List Interdisciplinary Problem List Impaired Bathing/Grooming, Query Text:Answers will Trigger Problems Impaired Dressing,Impaired and Outcomes on Worklist. Mobility,Impaired Transfers, Impaired Home Management, Impaired Safety IRU Interdisciplinary Care Plan Therapy Services Therapy Services Will Include: Physical Therapy,Occupational Query Text:Patient will be seen for a Therapy minimum of 3 hours of daily therapy 5 out of 7 days a week. Therapy intensity may be adjusted within a 7 consecutive day period to effectively serve the individual needs of the patient. Treatment Frequency/Intensity/Duration Treatment Frequency 5days/week Treatment Intensity 3 hours per day Treatment Duration 14-21 days Problem Area: Eating/Swallowing Eating/Swallowing Outcomes Eating/Swallowing Interventions Problem Area: Bathing/Grooming Bathing/Grooming Outcomes Improve [place] w/ Grooming,Improve [place] w/ Bathing Bathing/Grooming Interventions ADL Training,Use of Assistive Devices,Therapeutic Exercise, Therapeutic Activity, Neuromuscular Re-Education, Balance Work,Activity Tolerance Work Problem Area: Dressing Dressing Outcomes Dressing Interventions Problem Area: Mobility Mobility Outcomes Improve [place] w/ Bed Mobility,Improve [place] w/ Ambulation,Improve [place] w/ Stairs/Curb, Improve [place] w/ Wheelchair Mobility Interventions Therapeutic Exercise, Neuromuscular Re-Ed.,Activity Tolerance Work,Use of Assistive Devices,Patient/ Caregiver Education,Bed Mobility Work,Household Mobility Work Problem Area: Transfers Transfers Outcomes Improve [place] w/ Bed Transfers,Improve [place] w/ Toilet Transfers,Improve [place] w/ Tub/Shower Transfers,Improve [place] w/ Car Transfers Transfers Interventions Transfer Training,Therapeutic Exercise,Neuromuscular Re- Education,Activity Tolerance Work,Use of Assistive Devices, Patient/Caregiver Education Problem Area: Bowel/Bladder Managment Bowel/Bladder Outcomes Bowel/Bladder Interventions Problem Area: Toileting Toileting Outcomes Improve [place] w/ Toileting Toileting Interventions ADL Training,Balance Work,Use of Assistive Devices,Patient/ Caregiver Education Problem Area: Nutrition Nutrition Outcomes Nutrition Interventions Problem Area: Comprehension Comprehension Outcomes Comprehension Interventions Problem Area: Expression Expression Outcomes Expression Interventions Problem Area: Problem Solving Problem Solving Outcomes Improve Problem Solving Problem Solving Interventions Safety Education,Patient/ Caregiver Education Problem Area: Memory Memory Outcomes Memory Interventions Problem Area: Pain Management Pain Management Outcomes Pain Management Interventions Problem Area: Knowledge Deficits Knowledge Deficits Outcomes Knowledge Deficits Interventions Problem Area: Skin/Tissue Integrity Skin/Tissue Integrity Outcomes Skin/Tissue Integrity Interventions Problem Area: Social Interaction Social Interaction Outcomes Social Interaction Interventions Problem Area: Adjustment to Disability Adjustment to Disability Outcomes Adjustment to Disability Interventions Problem Area: Discharge Concerns Discharge Concerns Outcomes Discharge w/ Necessary Equipment,Have Home Health/ Outpatient Services Discharge Concerns Interventions Discharge Planning,Family/ Caregiver Conference,Family/ Caregiver Training Problem Area: Community Reintegration Community Reintegration Outcomes Demonstrate Understanding of Community Resources,Able to Re -Enter the Community Community Reintegration Interventions Activity Tolerance Work, Leisure Activity Problem Area: Home Management Home Management Outcomes Improve [place] w/ Home Management Home Management Interventions Meal Preparation,Clothing Care ,Activity Tolerance Work, Leisure Skills Development, House Cleaning Problem Area: Safety Safety Outcomes Provide Safe Environment, Perform Selfcare Safely, Demonstrate Good Safety w/ Transfers/Mobility Safety Interventions Identify Fall Risk,[place] Pt. to Environment,Reduce Environmental Hazards,Neuro Check Assessment,Implement Mechanical Devices, i.e. Chair Alarm (Post Fall Update),Re- Educate Patient/Caregiver for Safety (Post Fall Update) Problem Area: Medication Education Medication Education Outcomes Medication Education Interventions Problem Area: Diabetes Education Diabetes Education Outcomes Diabetes Education Interventions Problem Area: Oxygenation Oxygenation Outcomes Oxygenation Interventions Problem Area: Cardiovascular Cardiovascular Outcomes Cardiovascular Interventions Physician Only Medical Prognosis and Rehabilitation Potential (Completed by Physician) Good rehab potential, fair overall medical prognosis. 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 Has poorly controlled/labile hypertension which we will hopefully be able to assist her home physicians with during her time here in finding a better route to control. Overall she is participatory and eager to get better which bodes well for her. This plan of care has been developed based on the findings from the pre- admission assessment, post admission physician evaluation, information gathered from the assessments from all therapy disciplines and other pertinent clinicians. The plan of care has been reviewed and discussed in collaboration with the interdisciplinary team. The plan of care will be reviewed and updated at least weekly.
[2019-05-06] MEDS: GABAPENTIN 500 MG/10 ML ORAL LIQD FEEDTUBE SCH ×2 (15:11→22:05)
[2019-05-06] MEDS: traZODone 50 MG TAB PO SCH (21:00)
[2019-05-07] MEDS: GABAPENTIN 500 MG/10 ML ORAL LIQD FEEDTUBE SCH ×3 (06:25→22:13)
[2019-05-07] MEDS: HEPARIN 5,000 UNIT/1 ML VIAL SUB-Q SCH ×3 (06:25→22:13)
[2019-05-07] MEDS: CLOPIDOGREL 75 MG TAB FEEDTUBE SCH (08:39)
[2019-05-07] MEDS: ASPIRIN 81 MG TAB CHEW FEEDTUBE SCH (08:39)
[2019-05-07] MEDS: POLYETHYLENE GLYCOL 3350 17 GM POWDER FEEDTUBE SCH (08:40)
[2019-05-07] MEDS: oxyCODONE /ACETAMINOPHEN 5-325MG TAB FEEDTUBE PRN ×2 (08:42→16:14)
[2019-05-07] MEDS: DICLOFENAC SODIUM 1% TOPICAL GEL 100 GM TP SCH ×3 (08:45→20:00)
[2019-05-07] MEDS: cloNIDine 0.2 MG TAB FEEDTUBE SCH ×3 (08:58→21:00)
[2019-05-07] MEDS: amLODIPine 10 MG TAB FEEDTUBE SCH (08:58)
[2019-05-07] MEDS: carvediloL 25 MG TAB FEEDTUBE SCH ×2 (08:58→22:15)
[2019-05-07] MEDS: traZODone 50 MG TAB PO SCH (21:00)
[2019-05-08] MEDS: GABAPENTIN 500 MG/10 ML ORAL LIQD FEEDTUBE SCH ×3 (06:00→22:39)
[2019-05-08] MEDS: HEPARIN 5,000 UNIT/1 ML VIAL SUB-Q SCH ×3 (06:00→22:37)
[2019-05-08] MEDS: cloNIDine 0.2 MG TAB FEEDTUBE SCH ×3 (09:26→22:19)
[2019-05-08] MEDS: DICLOFENAC SODIUM 1% TOPICAL GEL 100 GM TP SCH ×3 (09:50→20:52)
[2019-05-08] MEDS: CLOPIDOGREL 75 MG TAB FEEDTUBE SCH (11:25)
[2019-05-08] MEDS: carvediloL 25 MG TAB FEEDTUBE SCH ×2 (11:25→22:18)
[2019-05-08] MEDS: ASPIRIN 81 MG TAB CHEW FEEDTUBE SCH (11:25)
[2019-05-08] MEDS: oxyCODONE /ACETAMINOPHEN 5-325MG TAB FEEDTUBE PRN ×2 (11:25→19:59)
[2019-05-08] MEDS: amLODIPine 10 MG TAB FEEDTUBE SCH (11:26)
[2019-05-08] MEDS: POLYETHYLENE GLYCOL 3350 17 GM POWDER FEEDTUBE SCH (11:26)
[2019-05-08] MEDS: traZODone 50 MG TAB PO SCH (22:39)
[2019-05-09] MEDS: HEPARIN 5,000 UNIT/1 ML VIAL SUB-Q SCH ×3 (05:53→21:26)
[2019-05-09] MEDS: GABAPENTIN 500 MG/10 ML ORAL LIQD FEEDTUBE SCH ×3 (05:54→21:25)
[2019-05-09 08:02] LABS: Calcium 9.8 mg/dL (8.4-10.2)
[2019-05-09] MEDS: DICLOFENAC SODIUM 1% TOPICAL GEL 100 GM TP SCH ×3 (08:07→21:58)
[2019-05-09] MEDS: oxyCODONE /ACETAMINOPHEN 5-325MG TAB FEEDTUBE PRN ×3 (08:54→21:35)
[2019-05-09] MEDS: POLYETHYLENE GLYCOL 3350 17 GM POWDER FEEDTUBE SCH (08:54)
[2019-05-09] MEDS: amLODIPine 10 MG TAB FEEDTUBE SCH (08:54)
[2019-05-09] MEDS: carvediloL 25 MG TAB FEEDTUBE SCH ×2 (08:54→21:40)
[2019-05-09] MEDS: CLOPIDOGREL 75 MG TAB FEEDTUBE SCH (08:54)
[2019-05-09] MEDS: cloNIDine 0.2 MG TAB FEEDTUBE SCH ×3 (08:54→21:32)
[2019-05-09] MEDS: ASPIRIN 81 MG TAB CHEW FEEDTUBE SCH (08:54)
--- NOTE | 2019-05-09 13:48 | Progress Note ---
Subjective Date of service: 05/09/19 Principal diagnosis: CVA Interval history: 53-year-old female who developed weakness in the right lower extremity and started having falls reported ED for further workup. 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 This is thought to possibly due to either cardioembolic versus endocarditis versus accelerated atherosclerotic disease secondary to radiation with a right ICA occlusion area echo showed ejection fraction 55% with grade 1 diastolic dysfunction and no PFO or valvular vegetations. Blood cultures showed no growth ruling out endocarditis. Patient was did not have atrial fibrillation in the hospital but has been referred to a private secretary as an outpatient for Holter monitoring for 30 days. She developed acute kidney injury which improved with IV fluids. Review of the roughly 120 pages of documents provided showed that she refused regular tube feedings even though she has a PEG. Apparently she was approved for clear liquids but she states that she still feels like she aspirates when attempting this. She was using commercial [id number] ensure bottles for nutrition following that with water and apple juice. After di scussing with her the pitfalls with this and the determining that her primary issue with the tube feeds was the pump apparatus that was being used we have opted to start her on bolus feeding. We'll follow up with labs in the morning. She notes that she was taking Ambien for sleep however did not help that well in the hospital. We'll try trazodone and monitor for improvement. Also notes that her shoulder has been fairly sore but does not necessarily point to the shoulder joint itself more so on the bicep. Patient is participating in therapy and making reasonable progress. Tolerating trazodone, did not sleep as well last night. Taking rest breaks as needed. - BM. Patient has PRN available, but not being offered. Will schedule miralax. Antihypertensives being held. Is having some elevated BP at times. Will adjust clonidine and attempt to provide more stable coverage. BP is pretty labile in this patient previously and I am attempting to regulate it on a regular schedule before she is discharged. Right shoulder pain continues. Decreased ability to tolerate passive ROM. Previous fall before CVA. ROM slightly better today. Continue to improve ROM, strengthening and Voltaren gel. Denies palpitations, dyspnea, cough, N/V. Tolerating feedings via bolus. All records, vitals, labs and medications were reviewed. No other issues per patient, nursing or therapy. Objective - Exam Narrative Exam: MUSCULOSKELETAL SPECIALTY EXAM CONSTITUTIONAL: Well developed, well nourished, appropriately groomed. RIGHT hand dominant. RESPIRATORY: Clear to auscultation bilaterally, no increased work of breathing CARDIOVASCULAR: Regular Rate/ Rhythm, no swelling, edema or tenderness in BUE or BLE. All extremities warm. GI: + bowel sounds, soft, NTTP, nondistended. PEG tube present INTEGUMENTARY: Normal, no lesion, rash, masses or bruising noted in extremities. MUSCULOSKELETAL: Point tenderness to palpation at the right anterior shoulder, otherwise BUE and BLE normal without defect, crepitus, subluxation, effusion, arthritic changes or TTP. RUE 4-/5 RLE 2/5 LUE / LLE 5/5 ROM decreased on right, within functional limit on the left Tone normal NEURO: CN II - XII grossly intact Sensation intact in all extremities without extinction. Coordination intact in BUE. No tremor noted in 4 extremities. Naming and repetition intact. Follows 2 step commands. 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 Balance appears reasonable. Gait deferred until seen with therapy. PSYCH: Alert, oriented x3, affect appears flat. Insight appears intact. - Constitutional Vitals: Vital Signs - 12hr 05/09/19 05/09/19 08:45 12:37 Temperature 36.4 C L 36.8 C Pulse Rate 106 H 74 Respiratory 22 18 Rate Blood Pressure 174/86 119/72 [Right] O2 Sat by Pulse 99 99 Oximetry - Allied health notes Allied health notes reviewed: nursing, PT, OT FIMS assessment as documented by PT/OT/ST: Social interaction/Memory/Problem solving Memory FIM Score 5. Supervision (Needs cueing <10%, stressful/ unfamiliar situations.) Problem Solving FIM Score 5. Supervision (Needs cueing <10% to solve routine problems.) Locomotion- walk/wheelchair Ambulation Distance 25 - Labs CBC & Chem 7: 05/04/19 15:10 05/09/19 06:57 Labs: Laboratory Results - last 72 hr 01/06/20 06:57 Sodium 140 Potassium 4.6 Chloride 97.7 L Carbon Dioxide 25 Anion Gap 22 BUN 26 H Creatinine 1.2 Estimated GFR 57 BUN/Creatinine Ratio 22 Glucose 167 H Calcium 9.8 Magnesium 2.00 Assessment and Plan CVA dominant right luis m-paresis: Continue secondary stroke prevention (antithrombotic, statin (goal LDLsee less than 70), BP control (goal less than 140/90), glucose control (goal A1c less than 7), and lifestyle modification). Monitor for recurrent stroke or poststroke recrudescence. Continue neuromotor therapy as above. Family training when available. Monitor for post stroke depression, cognitive effects, seizure, dysfunction, aphasia, shoulder-hand syndrome, sensory deficits, spasticity, bowel/bladder deficits, sleep disturbanc e, vision deficits and DVT. Prognosis for recovery and secondary stroke prevention discussed. Follow-up with neurology at discharge. No driving until cleared by neurologist. Dysphagia: Continue PEG tube feedings. 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 We will D for retesting for swallowing. Patient notes that GI attempted esophageal dilatation however could not accomplish this. May be able to reattempt at a later date. Hypertension: Labile and poorly controlled. Both PCP and private secretary working diligently on this as outpatient. We'll continue to attempt to control with this few meds possible. Blood pressure checks every 4 hours while awake. Hold orders placed on all antihypertensives. Hydralazine prn only now. Attempt to adjust clonidine for better control. Left shoulder pain: Start Voltaren gel monitor for improvement. Ranging and strengthening per OT. Modalities as needed. X-ray right shoulder NEG for Fx, OA. Asthma: Continue albuterol nebulizers when necessary. Insomnia: Not better with Ambien at outside hospital. Seems to be improved with trazodone, continue to monitor Anemia: Monitor and replace components as needed. Transfusion for hemoglobin less than 7 Nutrition: Continue PEG feeds with bolus feeding. Dietitian consulted. Water flushes to avoid dehydration. Monitor labs on a frequent basis. PEG care per protocol. Z73.6 ADL dysfunction: OT will work on improving ability to perform ADLs (inc luding assistive devices) to increase independence and decrease caregiver burden and improve functional transfers and mobility training. R26.2 Difficulty walking: PT will work on gait training and proper use of assistive devices and advance as appropriate to use of stairs and outside ambulation on uneven surfaces. R26.81 Unsteadiness on feet: PT will work on improving static and dynamic sitting and standing balance as well as proper use of assistive devices to decrease risk of falls. R26.89 Abnormality of gait: PT will work to improve safety and efficiency of gait through neuromotor training and gait training along with instruction on proper use of assistive devices. M62.81 Muscle weakness: PT & OT will work on strengthening exercises to improve functional strength including mixture of closed and open kinetic chain exercises. R53.81 Debility: PT & OT will work on improving overall functional status to improve participation with ADLs, mobility and social involvement. R53.83 Fatigue: PT & OT will work on improving endurance through aerobic exercises and therapeutic activity while monitoring patients tolerance for activity and vital signs as needed. DVT ppx: Heparin, monitor closely for bleeding as she is on Plavix and aspirin as well Pain: Continue physical modalities in therapy and pain medications as needed to achieve functional pain control. Sleep: Monitor and address as needed. Bowel: Monitor and address as needed. Appetite: Monitor and address as needed. Discharge planning: Pending therapy progress and care plan meeting. Will continue discussion with therapy team, SW, patient and family. Restrictions/ Precautions: Falls, aspiration (NPO) WB status: FWB Functional Hx: ADLs: Independent Cognition: Independent Mobility: No AD Barriers to Discharge: Decreased mobility and ability to perform self care, balance deficits, weakness Estimated Length of Stay: 14-21 days Discharge Destination: Home alone with daughter to assist at discharge
[2019-05-09] MEDS: traZODone 50 MG TAB PO SCH (21:24)
[2019-05-10] MEDS: HEPARIN 5,000 UNIT/1 ML VIAL SUB-Q SCH ×3 (06:25→22:38)
[2019-05-10] MEDS: GABAPENTIN 500 MG/10 ML ORAL LIQD FEEDTUBE SCH ×3 (06:27→22:37)
[2019-05-10] MEDS: oxyCODONE /ACETAMINOPHEN 5-325MG TAB FEEDTUBE PRN ×2 (08:57→22:48)
[2019-05-10] MEDS: POLYETHYLENE GLYCOL 3350 17 GM POWDER FEEDTUBE SCH (08:58)
[2019-05-10] MEDS: carvediloL 25 MG TAB FEEDTUBE SCH ×2 (08:59→22:37)
[2019-05-10] MEDS: amLODIPine 10 MG TAB FEEDTUBE SCH (08:59)
[2019-05-10] MEDS: ASPIRIN 81 MG TAB CHEW FEEDTUBE SCH (08:59)
[2019-05-10] MEDS: CLOPIDOGREL 75 MG TAB FEEDTUBE SCH (08:59)
[2019-05-10] MEDS: cloNIDine 0.2 MG TAB FEEDTUBE SCH (11:17)
--- NOTE | 2019-05-10 13:47 | Progress Note ---
Subjective Date of service: 05/10/19 Principal diagnosis: CVA Interval history: 53-year-old female who developed weakness in the right lower extremity and started having falls reported ED for further workup. 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 This is thought to possibly due to either cardioembolic versus endocarditis versus accelerated atherosclerotic disease secondary to radiation with a right ICA occlusion area echo showed ejection fraction 55% with grade 1 diastolic dysfunction and no PFO or valvular vegetations. Blood cultures showed no growth ruling out endocarditis. Patient was did not have atrial fibrillation in the hospital but has been referred to a surveillance sensor officer as an outpatient for Holter monitoring for 30 days. She developed acute kidney injury which improved with IV fluids. Review of the roughly 120 pages of documents provided showed that she refused regular tube feedings even though she has a PEG. Apparently she was approved for clear liquids but she states that she still feels like she aspirates when attempting this. She was using commercial [id number] ensure bottles for nutrition following that with water and apple juice. After di scussing with her the pitfalls with this and the determining that her primary issue with the tube feeds was the pump apparatus that was being used we have opted to start her on bolus feeding. We'll follow up with labs in the morning. She notes that she was taking Ambien for sleep however did not help that well in the hospital. We'll try trazodone and monitor for improvement. Also notes that her shoulder has been fairly sore but does not necessarily point to the shoulder joint itself more so on the bicep. Patient is participating in therapy and making reasonable progress. Tolerating trazodone, slept better last night. Taking rest breaks as needed. +BM after several days of constipation. Denies Abdd pain, N/V. Stated she is taking "real miralax from home". Advised her not to take home meds and reminded her that we were giving her miralax. Hypertension labile. Clonidine reduced and hold order adjusted. Will continue to monitor and hopefully be able to dc. BP is pretty labile in this patient previously and I am attempting to regulate it on a regular schedule before she is discharged. Right shoulder pain continues. Decreased ability to tolerate passive ROM. Previous fall before CVA. ROM better today. Continue to improve ROM, strengthening and refused Voltaren gel yesterday. Otherwise, denies MSK pain. Cough with production noted. Lungs sound clear. Started yesterday. CXR ordered and reviewed. No signs of infiltrate or atelectasis. Denies dyspnea. Renal function improved, monitor. Maintain NPO for dysphagia. Tolerating feedings via bolus. All records, vitals, labs and medications were reviewed. No other issues per patient, nursing or therapy. Objective - Exam Narrative Exam: MUSCULOSKELETAL SPECIALTY EXAM CONSTITUTIONAL: Well developed, well nourished, appropriately groomed. RIGHT hand dominant. RESPIRATORY: Clear to auscultation bilaterally, no increased work of breathing, cough noted. CARDIOVASCULAR: Regular Rate/ Rhythm, no swelling, edema or tenderness in BUE or BLE. All extremities warm. GI: + bowel sounds, soft, NTTP, nondistended. PEG tube present INTEGUMENTARY: Normal, no lesion, rash, masses or bruising noted in extremities. MUSCULOSKELETAL: Point tenderness to palpation at the right anterior shoulder, otherwise BUE and BLE normal without defect, crepitus, subluxation, effusion, arthritic changes or TTP. RUE 4-/5 RLE 2/5 LUE / LLE 5/5 ROM decreased on right, within functional limit on the left Tone normal NEURO: CN II - XII grossly intact Sensation intact in all extremities without extinction. Coordination intact in BUE. No tremor noted in 4 extremities. Naming and repetition intact. Follows 2 step commands. 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 Balance appears reasonable. Gait deferred until seen with therapy. PSYCH: Alert, oriented x3, affect appears flat. Insight appears intact. - Constitutional Vitals: Vital Signs - 12hr 05/10/19 05/10/19 05/10/19 07:20 08:59 11:14 Temperature 36.4 C L Pulse Rate 77 77 64 Respiratory 18 18 Rate Blood Pressure 126/71 126/71 Blood Pressure 93/54 [Left] O2 Sat by Pulse 97 Oximetry 05/10/19 11:17 Temperature Pulse Rate 64 Respiratory Rate Blood Pressure 93/54 Blood Pressure [Left] O2 Sat by Pulse Oximetry - Allied health notes Allied health notes reviewed: nursing, PT, OT FIMS assessment as documented by PT/OT/ST: Social interaction/Memory/Problem solving Memory FIM Score 5. Supervision (Needs cueing <10%, stressful/ unfamiliar situations.) Problem Solving FIM Score 5. Supervision (Needs cueing <10% to solve routine problems.) Locomotion- walk/wheelchair Ambulation Distance 25 - Labs CBC & Chem 7: 05/04/19 15:10 05/09/19 06:57 Labs: Laboratory Results - last 72 hr 05/09/19 06:57 Sodium 140 Potassium 4.6 Chloride 97.7 L Carbon Dioxide 25 Anion Gap 22 BUN 26 H Creatinine 1.2 Estimated GFR 57 BUN/Creatinine Ratio 22 Glucose 167 H Calcium 9.8 Magnesium 2.00 - Imaging and cardiology Chest x-ray: report reviewed, image reviewed Assessment and Plan CVA dominant right luis m-paresis: Continue secondary stroke prevention (antithrombotic, statin (goal LDLsee less than 70), BP control (goal less than 140/90), glucose control (goal A1c less than 7), and lifestyle modification). Monitor for recurrent stroke or poststroke recrudescence. Continue neuromotor therapy as above. Family training when available. Monitor for post stroke depression, cognitive effects, seizure, dysfunction, aphasia, shoulder-hand syndrome, sensory deficits, spasticity, bowel/bladder deficits, sleep disturbance, vision deficits and DVT. Prognosis for recovery and secondary stroke prevention discussed. Follow-up with neurology at discharge. No driving until cleared by neurologist. Dysphagia: Continue PEG tube feedings. 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 We will D for retesting for swallowing. Patient notes that GI attempted esophageal dilatation however could not accomplish this. May be able to reattempt at a later date. Cough: some production. CXR ordered and reviewed. No acute process. Hypertension: Labile and poorly controlled. Both PCP and surveillance sensor officer working diligently on this as outpatient. We'll continue to attempt to control with this few meds possible. Blood pressure checks every 4 hours while awake. Hold orders placed on all antihypertensives. Hydralazine prn only now. Attempt to adjust clonidine for better control. Left shoulder pain: Start Voltaren gel monitor for improvement. Ranging and strengthening per OT. Modalities as needed. X-ray right shoulder NEG for Fx, OA. Asthma: Continue albuterol nebulizers when necessary. Insomnia: Not better with Ambien at outside hospital. Seems to be improved with trazodone, continue to monitor Anemia: Monitor and replace components as needed. Transfusion for hemoglobin less than 7. Improved Nutrition: Continue PEG feeds with bolus feeding. Dietitian consulted. Water flushes to avoid dehydration. Monitor labs on a frequent basis. PEG care per protocol. Z73.6 ADL dysfunction: OT will work on improving ability to perform ADLs (including assistive devices) to increase independence and decrease caregiver burden and improve functional transfers and mobility training. R26.2 Difficulty walking: PT will work on gait training and proper use of assistive devices and advance as appropriate to use of stairs and outside ambulation on uneven surfaces. R26.81 Unsteadiness on feet: PT will work on improving static and dynamic sitting and standing balance as well as proper use of assistive devices to decrease risk of falls. R26.89 Abnormality of gait: PT will work to improve safety and efficiency of gait through neuromotor training and gait training along with instruction on proper use of assistive devices. M62.81 Muscle weakness: PT & OT will work on strengthening exercises to improve functional strength including mixture of closed and open kinetic chain exercises. R53.81 Debility: PT & OT will work on improving overall functional status to improve participation with ADLs, mobility and social involvement. R53.83 Fatigue: PT & OT will work on improving endurance through aerobic exercises and therapeutic activity while monitoring patients tolerance for activity and vital signs as needed. DVT ppx: Heparin, monitor closely for bleeding as she is on Plavix and aspirin as well Pain: Continue physical modalities in therapy and pain medications as needed to achieve functional pain control. Sleep: Monitor and address as needed. Bowel: Monitor and address as needed. Appetite: Monitor and address as needed. Discharge planning: Pending therapy progress and care plan meeting. Will continue discussion with therapy team, SW, patient and family. Restrictions/ Precautions: Falls, aspiration (NPO) WB status: FWB Functional Hx: ADLs: Independent Cognition: Independent Mobility: No AD Barriers to Discharge: Decreased mobility and ability to perform self care, balance deficits, weakness Estimated Length of Stay: 14-21 days Discharge Destination: Home alone with daughter to assist at discharge
[2019-05-10] MEDS ORDERED: cloNIDine 0.2 MG TAB FEEDTUBE SCH (15:26)
[2019-05-10] MEDS: DICLOFENAC SODIUM 1% TOPICAL GEL 100 GM TP SCH ×2 (15:53→22:43)
--- NOTE | 2019-05-10 17:02 | XRay Report ---
CHEST 2 VIEWS INDICATION / CLINICAL INFORMATION: Cough. COMPARISON: 07/27/2013. FINDINGS: SUPPORT DEVICES: There is a new right jugular Port-A-Cath with the tip overlying the cavoatrial junct ion/upper right atrium. HEART / MEDIASTINUM: Mild cardiomegaly is stable. Vasculature is normal. LUNGS / PLEURA: No significant pulmonary or pleural abnormality. No pneumothorax. ADDITIONAL FINDINGS: There are mild degenerative changes involving both shoulders. IMPRESSION: No acute findings. Signer Name: Sony Pickard MD Signed: 05/10/2019 4:57 PM Workstation Name: [id number]
[2019-05-10] MEDS: cloNIDine 0.1 MG TAB PO SCH ×2 (19:06→22:37)
[2019-05-10] MEDS: traZODone 50 MG TAB PO SCH (22:37)
[2019-05-11] MEDS: GABAPENTIN 500 MG/10 ML ORAL LIQD FEEDTUBE SCH ×3 (06:20→21:53)
[2019-05-11] MEDS: HEPARIN 5,000 UNIT/1 ML VIAL SUB-Q SCH ×3 (06:20→21:48)
[2019-05-11] MEDS: cloNIDine 0.1 MG TAB PO SCH ×2 (08:33→21:52)
[2019-05-11] MEDS: ASPIRIN 81 MG TAB CHEW FEEDTUBE SCH (08:34)
[2019-05-11] MEDS: oxyCODONE /ACETAMINOPHEN 5-325MG TAB FEEDTUBE PRN ×3 (08:34→21:52)
[2019-05-11] MEDS: carvediloL 25 MG TAB FEEDTUBE SCH ×2 (08:34→21:51)
[2019-05-11] MEDS: amLODIPine 10 MG TAB FEEDTUBE SCH (08:34)
[2019-05-11] MEDS: POLYETHYLENE GLYCOL 3350 17 GM POWDER FEEDTUBE SCH (08:34)
[2019-05-11] MEDS: CLOPIDOGREL 75 MG TAB FEEDTUBE SCH (08:34)
[2019-05-11] MEDS: DICLOFENAC SODIUM 1% TOPICAL GEL 100 GM TP SCH ×3 (13:05→21:53)
--- NOTE | 2019-05-11 15:44 | Progress Note ---
Subjective Date of service: 05/11/19 Principal diagnosis: CVA Interval history: 53-year-old female who developed weakness in the right lower extremity and started having falls reported ED for further workup. 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 This is thought to possibly due to either cardioembolic versus endocarditis versus accelerated atherosclerotic disease secondary to radiation with a right ICA occlusion area echo showed ejection fraction 55% with grade 1 diastolic dysfunction and no PFO or valvular vegetations. Blood cultures showed no growth ruling out endocarditis. Patient was did not have atrial fibrillation in the hospital but has been referred to a mold laminator as an outpatient for Holter monitoring for 30 days. She developed acute kidney injury which improved with IV fluids. Review of the roughly 120 pages of documents provided showed that she refused regular tube feedings even though she has a PEG. Apparently she was approved for clear liquids but she states that she still feels like she aspirates when attempting this. She was using commercial [id number] ensure bottles for nutrition following that with water and apple juice. After di scussing with her the pitfalls with this and the determining that her primary issue with the tube feeds was the pump apparatus that was being used we have opted to start her on bolus feeding. We'll follow up with labs in the morning. She notes that she was taking Ambien for sleep however did not help that well in the hospital. We'll try trazodone and monitor for improvement. Also notes that her shoulder has been fairly sore but does not necessarily point to the shoulder joint itself more so on the bicep. Patient is participating in therapy and making reasonable progress. Tolerating trazodone, slept better last night. Taking rest breaks as needed. -BM. Denies Abdd pain, N/V. Cont miralax. Hypertension stabilizing. Clonidine being given at times. Will continue to monitor and hopefully be able to dc. BP is pretty labile in this patient previously and I am attempting to regulate it on a regular schedule before she is discharged. Right shoulder pain continues. Decreased ability to tolerate passive ROM. Previous fall before CVA. ROM improving daily. Continue to improve ROM, strengthening and taking Voltaren occasionally. Otherwise, denies MSK pain. Cough with production noted yesterday, no complaints today. Lungs sound clear. Started yesterday. Denies dyspnea. Renal function improved, monitor. Maintain NPO for dysphagia. Tolerating feedings via bolus. All records, vitals, labs and medications were reviewed. No other issues per patient, nursing or therapy. Objective - Exam Narrative Exam: MUSCULOSKELETAL SPECIALTY EXAM CONSTITUTIONAL: Well developed, well nourished, appropriately groomed. RIGHT hand dominant. RESPIRATORY: Clear to auscultation bilaterally, no increased work of breathing. CARDIOVASCULAR: Regular Rate/ Rhythm, no swelling, edema or tenderness in BUE or BLE. All extremities warm. GI: + bowel sounds, soft, NTTP, nondistended. PEG tube present INTEGUMENTARY: Normal, no lesion, rash, masses or bruising noted in extremities. MUSCULOSKELETAL: Point tenderness to palpation at the right anterior shoulder, otherwise BUE and BLE normal without defect, crepitus, subluxation, effusion, arthritic changes or TTP. RUE 4-/5 RLE 2/5 LUE / LLE 5/5 ROM decreased on right, within functional limit on the left Tone normal NEURO: CN II - XII grossly intact Sensation intact in all extremities without extinction. Coordination intact in BUE. No tremor noted in 4 extremities. Naming and repetition intact. Follows 2 step commands. 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 Balance appears reasonable. Gait deferred until seen with therapy. PSYCH: Alert, oriented x3, affect appears flat. Insight appears intact. - Constitutional Vitals: Vital Signs - 12hr 05/11/19 05/11/19 07:32 08:33 Temperature 36.4 C L Pulse Rate 75 75 Respiratory 18 Rate Blood Pressure 128/65 128/65 O2 Sat by Pulse 99 Oximetry - Allied health notes Allied health notes reviewed: nursing, PT, OT FIMS assessment as documented by PT/OT/ST: Social interaction/Memory/Problem solving Memory FIM Score 5. Supervision (Needs cueing <10%, stressful/ unfamiliar situations.) Problem Solving FIM Score 5. Supervision (Needs cueing <10% to solve routine problems.) Locomotion- walk/wheelchair Ambulation Distance 25 - Labs CBC & Chem 7: 05/04/19 15:10 01/06/20 06:57 Labs: Laboratory Results - last 72 hr 05/09/19 06:57 Sodium 140 Potassium 4.6 Chloride 97.7 L Carbon Dioxide 25 Anion Gap 22 BUN 26 H Creatinine 1.2 Estimated GFR 57 BUN/Creatinine Ratio 22 Glucose 167 H Calcium 9.8 Magnesium 2.00 Assessment and Plan CVA dominant right luis m-paresis: Continue secondary stroke prevention (antithrombotic, statin (goal LDLsee less than 70), BP control (goal less than 140/90), glucose control (goal A1c less than 7), and lifestyle modification). Monitor for recurrent stroke or poststroke recrudescence. Continue neuromotor therapy as above. Family training when available. Monitor for post stroke depression, cognitive effects, seizure, dysfunction, aphasia, shoulder-hand syndrome, sensory deficits, spasticity, bowel/bladder deficits, sleep disturbance, vision deficits and DVT. Prognosis for recovery and secondary stroke prevention discussed. Follow-up with neurology at discharge. No driving until cleared by neurologist. Dysphagia: Continue PEG tube feedings. 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 We will D for retesting for swallowing. Patient notes that GI attempted esophageal dilatation however could not accomplish this. May be able to reattempt at a later date. Cough: some production. CXR ordered and reviewed. No acute process. Hypertension: Labile and poorly controlled. Both PCP and mold laminator working diligently on this as outpatient. We'll continue to attempt to control with this few meds possible. Blood pressure checks every 4 hours while awake. Hold orders placed on all antihypertensives. Hydralazine prn only now. Attempt to adjust clonidine for better control. Left shoulder pain: Start Voltaren gel monitor for improvement. Ranging and strengthening per OT. Modalities as needed. X-ray right shoulder NEG for Fx, OA. Asthma: Continue albuterol nebulizers when necessary. Insomnia: Not better with Ambien at outside hospital. Seems to be improved with trazodone, continue to monitor Anemia: Monitor and replace components as needed. Transfusion for hemoglobin less than 7. Improved Nutrition: Continue PEG feeds with bolus feeding. Dietitian consulted. Water flushes to avoid dehydration. Monitor labs on a frequent basis. PEG care per protocol. Z73.6 ADL dysfunction: OT will work on improving ability to perform ADLs (including assistive devices) to increase independence and decrease caregiver burden and improve functional transfers and mobility training. R26.2 Difficulty walking: PT will work on gait training and proper use of assistive devices and advance as appropriate to use of stairs and outside ambulation on uneven surfaces. R26.81 Unsteadiness on feet: PT will work on improving static and dynamic sitting and standing balance as well as proper use of assistive devices to decrease risk of falls. R26.89 Abnormality of gait: PT will work to improve safety and efficiency of gait through neuromotor training and gait training along with instruction on proper use of assistive devices. M62.81 Muscle weakness: PT & OT will work on strengthening exercises to improve functional strength including mixture of closed and open kinetic chain exercises. R53.81 Debility: PT & OT will work on improving overall functional status to improve participation with ADLs, mobility and social involvement. R53.83 Fatigue: PT & OT will work on improving endurance through aerobic exercises and therapeutic activity while monitoring patients tolerance for activity and vital signs as needed. DVT ppx: Heparin, monitor closely for bleeding as she is on Plavix and aspirin as well Pain: Continue physical modalities in therapy and pain medications as needed to achieve functional pain control. Sleep: Monitor and address as needed. Bowel: Monitor and address as needed. Appetite: Monitor and address as needed. Discharge planning: Pending therapy progress and care plan meeting. Will continue discussion with therapy team, SW, patient and family. Restrictions/ Precautions: Falls, aspiration (NPO) WB status: FWB Functional Hx: ADLs: Independent Cognition: Independent Mobility: No AD Barriers to Discharge: Decreased mobility and ability to perform self care, balance deficits, weakness Estimated Length of Stay: 14-21 days Discharge Destination: Home alone with daughter to assist at discharge
[2019-05-11] MEDS: traZODone 50 MG TAB PO SCH (21:48)
[2019-05-12] MEDS: HEPARIN 5,000 UNIT/1 ML VIAL SUB-Q SCH ×3 (05:27→22:39)
[2019-05-12] MEDS: GABAPENTIN 500 MG/10 ML ORAL LIQD FEEDTUBE SCH ×3 (05:28→22:45)
[2019-05-12 08:11] LABS: Hematocrit 32.8 % (30.3-42.9); Hemoglobin 11.1 gm/dl (10.1-14.3); Mean Corpuscular HGB Conc 34 % (30-34); Mean Corpuscular Volume 92 fl (79-97); Platelet Count 197 K/mm3 (140-440); Red Blood Count 3.58 M/mm3 (3.65-5.03); Red Cell Distribution Width 14.8 % (13.2-15.2)
[2019-05-12] MEDS: cloNIDine 0.1 MG TAB PO SCH (08:39)
[2019-05-12] MEDS: POLYETHYLENE GLYCOL 3350 17 GM POWDER FEEDTUBE SCH (08:39)
[2019-05-12] MEDS: carvediloL 25 MG TAB FEEDTUBE SCH ×2 (08:40→22:38)
[2019-05-12] MEDS: DICLOFENAC SODIUM 1% TOPICAL GEL 100 GM TP SCH ×3 (08:40→22:39)
[2019-05-12] MEDS: oxyCODONE /ACETAMINOPHEN 5-325MG TAB FEEDTUBE PRN ×2 (08:40→22:42)
[2019-05-12] MEDS: amLODIPine 10 MG TAB FEEDTUBE SCH (08:41)
[2019-05-12] MEDS: CLOPIDOGREL 75 MG TAB FEEDTUBE SCH (08:41)
[2019-05-12] MEDS: ASPIRIN 81 MG TAB CHEW FEEDTUBE SCH (08:42)
[2019-05-12 09:33] LABS: BUN/Creatinine Ratio TNR; Blood Urea Nitrogen TNR mg/dL (7-17); Calcium TNR mg/dL (8.4-10.2); Hemolysis Index TNR
--- NOTE | 2019-05-12 09:46 | Progress Note ---
Subjective Date of service: 05/12/19 Principal diagnosis: CVA Interval history: 53-year-old female who developed weakness in the right lower extremity and started having falls reported ED for further workup. 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 This is thought to possibly due to either cardioembolic versus endocarditis versus accelerated atherosclerotic disease secondary to radiation with a right ICA occlusion area echo showed ejection fraction 55% with grade 1 diastolic dysfunction and no PFO or valvular vegetations. Blood cultures showed no growth ruling out endocarditis. Patient was did not have atrial fibrillation in the hospital but has been referred to a solar lab technician as an outpatient for Holter monitoring for 30 days. She developed acute kidney injury which improved with IV fluids. Review of the roughly 120 pages of documents provided showed that she refused regular tube feedings even though she has a PEG. Apparently she was approved for clear liquids but she states that she still feels like she aspirates when attempting this. She was using commercial [id number] ensure bottles for nutrition following that with water and apple juice. After di scussing with her the pitfalls with this and the determining that her primary issue with the tube feeds was the pump apparatus that was being used we have opted to start her on bolus feeding. We'll follow up with labs in the morning. She notes that she was taking Ambien for sleep however did not help that well in the hospital. We'll try trazodone and monitor for improvement. Also notes that her shoulder has been fairly sore but does not necessarily point to the shoulder joint itself more so on the bicep. Patient is participating in therapy and making reasonable progress. Tolerating trazodone, slept better last night. Taking rest breaks as needed. -BM. Denies Abdd pain, N/V. Cont miralax. Hypertension stabilizing. Clonidine being given at times. Will continue to monitor and hopefully be able to dc. BP is pretty labile in this patient previously and I am attempting to regulate it on a regular schedule before she is discharged. Right shoulder pain continues. Decreased ability to tolerate passive ROM. Previous fall before CVA. ROM improving daily. Continue to improve ROM, strengthening and taking Voltaren occasionally. Otherwise, denies MSK pain. Cough with production noted yesterday, no complaints today. Lungs sound clear. Started yesterday. Denies dyspnea. Chest x-ray negative for acute process. States she is on albuterol at home, will restart. Renal function improved, monitor. Maintain NPO for dysphagia. Tolerating feedings via bolus. Discussed in team conference. Patient is making good progress with therapy. His improving her ability for dorsiflexion on the right lower extremity however the ability is decreased when she ambulates. Currently he ambulates with a Khmer knee cage and AFO and still has difficulty clearing her foot. At times can be contact-guard assist but requires min assistance for safety. Similarly with OT she is able to perform most ADLs and contact guard to min assist. Patient lives alone and will need to be able to be as independent as possible. Based on medical complexity of trying to control her labile hypertension, renal function, safety concerns, and functional mobility we are looking to discharge her on May 25. All records, vitals, labs and medications were reviewed. No other issues per patient, nursing or therapy. Objective - Exam Narrative Exam: MUSCULOSKELETAL SPECIALTY EXAM CONSTITUTIONAL: Well developed, well nourished, appropriately groomed. RIGHT hand dominant. RESPIRATORY: Clear to auscultation bilaterally, no increased work of breathing. CARDIOVASCULAR: Regular Rate/ Rhythm, no swelling, edema or tenderness in BUE or BLE. All extremities warm. GI: + bowel sounds, soft, NTTP, nondistended. PEG tube present INTEGUMENTARY: Normal, no lesion, rash, masses or bruising noted in extremities. MUSCULOSKELETAL: Point tenderness to palpation at the right anterior shoulder, otherwise BUE and BLE normal without defect, crepitus, subluxation, effusion, arthritic changes or TTP. RUE 4-/5 RLE 3/5 LUE / LLE 5/5 ROM decreased on right, within functional limit on the left Tone normal NEURO: CN II - XII grossly intact Sensation intact in all extremities without extinction. Coordination intact in BUE. No tremor noted in 4 extremities. Naming and repetition intact. Follows 2 step commands. 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 Balance appears reasonable. Gait slowed with decreased cl earance of the right lower extremity even with the use of Khmer knee cage and AFO. No overt loss of balance witnessed. PSYCH: Alert, oriented x3, affect appears flat. Insight appears intact. - Constitutional Vitals: Vital Signs - 12hr 05/11/19 05/11/19 05/12/19 21:51 21:52 07:34 Temperature 36.6 C Pulse Rate 100 H 100 H 74 Respiratory 18 Rate Blood Pressure 114/64 114/64 119/64 O2 Sat by Pulse 100 Oximetry 05/12/19 05/12/19 05/12/19 08:39 08:40 08:41 Temperature Pulse Rate 79 79 79 Respiratory Rate Blood Pressure 119/64 119/64 119/64 O2 Sat by Pulse Oximetry - Allied health notes Allied health notes reviewed: nursing, PT, OT FIMS assessment as documented by PT/OT/ST: Social interaction/Memory/Problem solving Memory FIM Score 5. Supervision (Needs cueing <10%, stressful/ unfamiliar situations.) Problem Solving FIM Score 5. Supervision (Needs cueing <10% to solve routine problems.) Locomotion- walk/wheelchair Ambulation Distance 25 - Labs CBC & Chem 7: 05/12/19 07:37 05/12/19 10:19 Labs: Laboratory Results - last 72 hr 05/12/19 05/12/19 07:37 07:37 WBC 3.2 L RBC 3.58 L Hgb 11.1 Hct 32.8 MCV 92 MCH 31 MCHC 34 RDW 14.8 Plt Count 197 Sodium TNR Potassium TNR Chloride TNR Carbon Dioxide TNR Anion Gap TNR BUN TNR Creatinine TNR Estimated GFR TNR BUN/Creatinine Ratio TNR Glucose TNR Calcium TNR Assessment and Plan CVA dominant right luis m-paresis: Continue secondary stroke prevention (antith rombotic, statin (goal LDLsee less than 70), BP control (goal less than 140/90), glucose control (goal A1c less than 7), and lifestyle modification). Monitor for recurrent stroke or poststroke recrudescence. Continue neuromotor therapy as above. Family training when available. Monitor for post stroke depression, cognitive effects, seizure, dysfunction, aphasia, shoulder-hand syndrome, sensory deficits, spasticity, bowel/bladder deficits, sleep disturbance, vision deficits and DVT. Prognosis for recovery and secondary stroke prevention discussed. Follow-up with neurology at discharge. No driving until cleared by neurologist. Dysphagia: Continue PEG tube feedings. 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 We will D for retesting for sw allowing. Patient notes that GI attempted esophageal dilatation however could not accomplish this. May be able to reattempt at a later date. Cough: some production. CXR ordered and reviewed. No acute process. Continue albuterol nebulizers Hypertension: Labile and poorly controlled. Both PCP and solar lab technician working diligently on this as outpatient. We'll continue to attempt to control with this few meds possible. Blood pressure checks every 4 hours while awake. Hold orders placed on all antihypertensives. Hydralazine prn only now. Attempt to adjust clonidine for better control. Left shoulder pain: Start Voltaren gel monitor for improvement. Ranging and strengthening per OT. Modalities as needed. X-ray right shoulder NEG for Fx, OA. Asthma: Continue albuterol nebulizers when necessary. Insomnia: Not better with Ambien at outside hospital. Seems to be improved with trazodone, continue to monitor Anemia: Monitor and replace components as needed. Transfusion for hemoglobin less than 7. Improved Nutrition: Continue PEG feeds with bolus feeding. Dietitian consulted. Water flushes to avoid dehydration. Monitor labs on a frequent basis. PEG care per protocol. Z73.6 ADL dysfunction: OT will work on improving ability to perform ADLs (including assistive devices) to increase independence and decrease caregiver burden and improve functional transfers and mobility training. R26.2 Difficulty walking: PT will work on gait training and proper use of assistive devices and advance as appropriate to use of stairs and outside ambulation on uneven surfaces. R26.81 Unsteadiness on feet: PT will work on improving static and dynamic sitting and standing balance as well as proper use of assistive devices to decrease risk of falls. R26.89 Abnormality of gait: PT will work to improve safety and efficiency of gait through neuromotor training and gait training along with instruction on proper use of assistive devices. M62.81 Muscle weakness: PT & OT will work on strengthening exercises to improve functional strength including mixture of closed and open kinetic chain exercises. R53.81 Debility: PT & OT will work on improving overall functional status to improve participation with ADLs, mobility and social involvement. R53.83 Fatigue: PT & OT will work on improving endurance through aerobic exercises and therapeutic activity while monitoring patients tolerance for activity and vital signs as needed. DVT ppx: Heparin, monitor closely for bleeding as she is on Plavix and aspirin as well Pain: Continue physical modalities in therapy and pain medications as needed to achieve functional pain control. Sleep: Monitor and address as needed. Bowel: Monitor and address as needed. Appetite: Monitor and address as needed. Discharge planning: Pending therapy progress and care plan meeting. Will continue discussion with therapy team, SW, patient and family. Look to discharge on May 25 Restrictions/ Precautions: Falls, aspiration (NPO) WB status: FWB Functional Hx: ADLs: Independent Cognition: Independent Mobility: No AD Barriers to Discharge: Decreased mobility and ability to perform self care, balance deficits, weakness Estimated Length of Stay: 14-21 days. Discharge Destination: Home alone with daughter to assist at discharge
[2019-05-12 10:58] LABS: Calcium 10.3 mg/dL (8.4-10.2)
[2019-05-12] MEDS: cloNIDine 0.1 MG TAB FEEDTUBE SCH (22:38)
[2019-05-12] MEDS: traZODone 50 MG TAB PO SCH (22:38)
[2019-05-13] MEDS: GABAPENTIN 500 MG/10 ML ORAL LIQD FEEDTUBE SCH ×3 (05:24→21:55)
[2019-05-13] MEDS: HEPARIN 5,000 UNIT/1 ML VIAL SUB-Q SCH ×3 (05:25→21:55)
[2019-05-13] MEDS: cloNIDine 0.1 MG TAB FEEDTUBE SCH ×2 (07:34→21:54)
[2019-05-13] MEDS: carvediloL 25 MG TAB FEEDTUBE SCH ×2 (07:35→21:55)
[2019-05-13] MEDS: DICLOFENAC SODIUM 1% TOPICAL GEL 100 GM TP SCH ×2 (07:35→15:50)
[2019-05-13] MEDS: POLYETHYLENE GLYCOL 3350 17 GM POWDER FEEDTUBE SCH (07:35)
[2019-05-13] MEDS: CLOPIDOGREL 75 MG TAB FEEDTUBE SCH (07:35)
[2019-05-13] MEDS: ASPIRIN 81 MG TAB CHEW FEEDTUBE SCH (07:35)
[2019-05-13] MEDS: oxyCODONE /ACETAMINOPHEN 5-325MG TAB FEEDTUBE PRN ×2 (07:37→21:55)
[2019-05-13] MEDS: amLODIPine 10 MG TAB FEEDTUBE SCH (07:53)
--- NOTE | 2019-05-13 10:57 | Progress Note ---
Subjective Date of service: 05/13/19 Principal diagnosis: CVA Interval history: 53-year-old female who developed weakness in the right lower extremity and started having falls reported ED for further workup. 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 This is thought to possibly due to either cardioembolic versus endocarditis versus accelerated atherosclerotic disease secondary to radiation with a right ICA occlusion area echo showed ejection fraction 55% with grade 1 diastolic dysfunction and no PFO or valvular vegetations. Blood cultures showed no growth ruling out endocarditis. Patient was did not have atrial fibrillation in the hospital but has been referred to a small parts assembler as an outpatient for Holter monitoring for 30 days. She developed acute kidney injury which improved with IV fluids. Review of the roughly 120 pages of documents provided showed that she refused regular tube feedings even though she has a PEG. Apparently she was approved for clear liquids but she states that she still feels like she aspirates when attempting this. She was using commercial [id number] ensure bottles for nutrition following that with water and apple juice. After di scussing with her the pitfalls with this and the determining that her primary issue with the tube feeds was the pump apparatus that was being used we have opted to start her on bolus feeding. We'll follow up with labs in the morning. She notes that she was taking Ambien for sleep however did not help that well in the hospital. We'll try trazodone and monitor for improvement. Also notes that her shoulder has been fairly sore but does not necessarily point to the shoulder joint itself more so on the bicep. Patient is participating in therapy and making reasonable progress. Tolerating trazodone, slept better last night. Taking rest breaks as needed. States she would like increase in TF. +BM. Denies Abd pain, N/V. Cont miralax and hold for loose stool Hypertension stabilizing. Clonidine being given at lower dose BID. Will continue to monitor and possibly be able to dc. BP is pretty labile in this patient previously and I am attempting to regulate it on a regular schedule befo re she is discharged. Right shoulder pain improving. Decreased ability to tolerate passive ROM. P revious fall before CVA. ROM improving daily. Continue to improve ROM, strengthening and taking Voltaren occasionally. Otherwise, denies MSK pain. Cough with production noted again today. Lungs sound clear. Started several days ago. Denies dyspnea. Chest x-ray negative for acute process. Has not had an Albuterol treatment. Renal function worse. Will increase water flushes, monitor. Maintain NPO for dysphagia. Tolerating feedings via bolus. All records, vitals, labs and medications were reviewed. No other issues per patient, nursing or therapy. Objective - Exam Narrative Exam: MUSCULOSKELETAL SPECIALTY EXAM CONSTITUTIONAL: Well developed, well nourished, appropriately groomed. RIGHT hand dominant. RESPIRATORY: Clear to auscultation bilaterally, no increased work of breathing. Cough CARDIOVASCULAR: Regular Rate/ Rhythm, no swelling, edema or tenderness in BUE or BLE. All extremities warm. GI: + bowel sounds, soft, NTTP, nondistended. PEG tube present INTEGUMENTARY: Normal, no lesion, rash, masses or bruising noted in extremities. MUSCULOSKELETAL: Point tenderness to palpation at the right anterior shoulder, otherwise BUE and BLE normal without defect, crepitus, subluxation, effusion, arthritic changes or TTP. RUE 4-/5 RLE 3/5 LUE / LLE 5/5 ROM decreased on right, within functional limit on the left Tone normal NEURO: CN II - XII grossly intact Sensation intact in all extremities without extinction. Coordination intact in BUE. No tremor noted in 4 extremities. Naming and repetition intact. Follows 2 step commands. 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 Balance appears reasonable. Gait slowed with decreased clearance of the right lower extremity even with the use of [place] knee cage and AFO. No overt loss of balance witnessed. PSYCH: Alert, oriented x3, affect appears flat. Insight appears intact. - Constitutional Vitals: Vital Signs - 12hr 05/13/19 05/13/19 05/13/19 07:20 07:34 07:53 Temperature 36.6 C Pulse Rate 66 66 66 Respiratory 18 Rate Blood Pressure 128/70 128/70 128/70 O2 Sat by Pulse 99 Oximetry - Allied health notes Allied health notes reviewed: nursing, PT, OT FIMS assessment as documented by PT/OT/ST: Social interaction/Memory/Problem solving Memory FIM Score 5. Supervision (Needs cueing <10%, stressful/ unfamiliar situations.) Problem Solving FIM Score 5. Supervision (Needs cueing <10% to solve routine problems.) Locomotion- walk/wheelchair Ambulation Distance 25 - Labs CBC & Chem 7: 05/12/19 07:37 05/12/19 10:19 Labs: Laboratory Results - last 72 hr 05/12/19 05/12/19 05/12/19 07:37 07:37 10:19 WBC 3.2 L RBC 3.58 L Hgb 11.1 Hct 32.8 MCV 92 MCH 31 MCHC 34 RDW 14.8 Plt Count 197 Sodium TNR 140 Potassium TNR 4.9 Chloride TNR 100.1 Carbon Dioxide TNR 24 Anion Gap TNR 21 BUN TNR 32 H Creatinine TNR 1.4 H Estimated GFR TNR 48 BUN/Creatinine Ratio TNR 23 Glucose TNR 92 Calcium TNR 10.3 H Assessment and Plan CVA dominant right luis m-paresis: Continue secondary stroke prevention (antithrombotic, statin (goal LDLsee less than 70), BP control (goal less than 140/90), glucose control (goal A1c less than 7), and lifestyle modification). Monitor for recurrent stroke or poststroke recrudescence. Continue neuromotor therapy as above. Family training when available. Monitor for post stroke depression, cognitive effects, seizure, dysfunction, aphasia, shoulder-hand syndrome, sensory deficits, spasticity, bowel/bladder deficits, sleep disturbance, vision deficits and DVT. Prognosis for recovery and secondary stroke prevention discussed. Follow-up with neurology at discharge. No driving until cleared by neurologist. Dysphagia: Continue PEG tube feedings. 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 We will defer retesting for swallowing. Patient notes that GI attempted esophageal dilatation however could not accomplish this. May be able to reattempt at a later date. Cough: some production. CXR ordered and reviewed. No acute process. Start Duoneb nebulizers x3 days Hypertension: Labile and poorly controlled. Both PCP and small parts assembler working diligently on this as outpatient. We'll continue to attempt to control with this few meds possible. Blood pressure checks every 4 hours while awake. Hold orders placed on all antihypertensives. Hydralazine prn only now. Attempt to adjust clonidine for better control. Left shoulder pain: Start Voltaren gel monitor for improvement. Ranging and strengthening per OT. Modalities as needed. X-ray right shoulder with OA, NEG for Fx. Asthma: Continue albuterol nebulizers when necessary. Insomnia: Not better with Ambien at outside hospital. Seems to be improved with trazodone, continue to monitor Anemia: Monitor and replace components as needed. Transfusion for hemoglobin less than 7. Improved Nutrition: Continue PEG feeds with bolus feeding. Dietitian consulted. Water flushes to avoid dehydration. Monitor labs on a frequent basis. PEG care per protocol. Z73.6 ADL dysfunction: OT will work on improving ability to perform ADLs (including assistive devices) to increase independence and decrease caregiver burden and improve functional transfers and mobility training. R26.2 Difficulty walking: PT will work on gait training and proper use of assistive devices and advance as appropriate to use of stairs and outside ambulation on uneven surfaces. R26.81 Unsteadiness on feet: PT will work on improving static and dynamic sitting and standing balance as well as proper use of assistive devices to decrease risk of falls. R26.89 Abnormality of gait: PT will work to improve safety and efficiency of gait through neuromotor training and gait training along with instruction on proper use of assistive devices. M62.81 Muscle weakness: PT & OT will work on strengthening exercises to improve functional strength including mixture of closed and open kinetic chain exercises. R53.81 Debility: PT & OT will work on improving overall functional status to improve participation with ADLs, mobility and social involvement. R53.83 Fatigue: PT & OT will work on improving endurance through aerobic exercises and therapeutic activity while monitoring patients tolerance for activity and vital signs as needed. DVT ppx: Heparin, monitor closely for bleeding as she is on Plavix and aspirin as well Pain: Continue physical modalities in therapy and pain medications as needed to achieve functional pain control. Sleep: Monitor and address as needed. Bowel: Monitor and address as needed. Appetite: Monitor and address as needed. Discharge planning: Pending therapy progress and care plan meeting. Will continue discussion with therapy team, SW, patient and family. Look to discharge on May 25 Restrictions/ Precautions: Falls, aspiration (NPO) WB status: FWB Functional Hx: ADLs: Independent Cognition: Independent Mobility: No AD Barriers to Discharge: Decreased mobility and ability to perform self care, ba suma deficits, weakness Estimated Length of Stay: 14-21 days. Discharge Destination: Home alone with daughter to assist at discharge
[2019-05-13] MEDS: IPRATROPIUM/ALBUTEROL SULFATE 3 ML AMPUL.NEB IH SCH ×2 (16:16→20:09)
[2019-05-13] MEDS: traZODone 50 MG TAB PO SCH (21:54)
[2019-05-14] MEDS: HEPARIN 5,000 UNIT/1 ML VIAL SUB-Q SCH ×3 (06:20→21:51)
[2019-05-14] MEDS: GABAPENTIN 500 MG/10 ML ORAL LIQD FEEDTUBE SCH ×3 (06:20→21:51)
[2019-05-14 08:22] LABS: Calcium 10.3 mg/dL (8.4-10.2)
[2019-05-14] MEDS: amLODIPine 10 MG TAB FEEDTUBE SCH (08:36)
[2019-05-14] MEDS: POLYETHYLENE GLYCOL 3350 17 GM POWDER FEEDTUBE SCH (08:36)
[2019-05-14] MEDS: ASPIRIN 81 MG TAB CHEW FEEDTUBE SCH (08:36)
[2019-05-14] MEDS: cloNIDine 0.1 MG TAB FEEDTUBE SCH ×2 (08:36→21:51)
[2019-05-14] MEDS: CLOPIDOGREL 75 MG TAB FEEDTUBE SCH (08:36)
[2019-05-14] MEDS: carvediloL 25 MG TAB FEEDTUBE SCH ×2 (08:36→21:49)
[2019-05-14] MEDS: oxyCODONE /ACETAMINOPHEN 5-325MG TAB FEEDTUBE PRN ×3 (08:36→21:48)
[2019-05-14] MEDS: IPRATROPIUM/ALBUTEROL SULFATE 3 ML AMPUL.NEB IH SCH ×3 (08:46→22:30)
--- NOTE | 2019-05-14 15:01 | Progress Note ---
Subjective Date of service: 05/14/19 Principal diagnosis: CVA Interval history: 53-year-old female who developed weakness in the right lower extremity and started having falls reported ED for further workup. 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 This is thought to possibly due to either cardioembolic versus endocarditis versus accelerated atherosclerotic disease secondary to radiation with a right ICA occlusion area echo showed ejection fraction 55% with grade 1 diastolic dysfunction and no PFO or valvular vegetations. Blood cultures showed no growth ruling out endocarditis. Patient was did not have atrial fibrillation in the hospital but has been referred to a psych therapist as an outpatient for Holter monitoring for 30 days. She developed acute kidney injury which improved with IV fluids. Review of the roughly 120 pages of documents provided showed that she refused regular tube feedings even though she has a PEG. Apparently she was approved for clear liquids but she states that she still feels like she aspirates when attempting this. She was using commercial [id number] ensure bottles for nutrition following that with water and apple juice. After di scussing with her the pitfalls with this and the determining that her primary issue with the tube feeds was the pump apparatus that was being used we have opted to start her on bolus feeding. We'll follow up with labs in the morning. She notes that she was taking Ambien for sleep however did not help that well in the hospital. We'll try trazodone and monitor for improvement. Also notes that her shoulder has been fairly sore but does not necessarily point to the shoulder joint itself more so on the bicep. Patient is participating in therapy and making reasonable progress. Tolerating trazodone, slept better last night. Taking rest breaks as needed. Tolerating increased TF (of note- she requested decreased TF earlier w/o my knowledge and the TF is now back to the ordered amount). +BM. Denies Abd pain, N/V. Cont miralax and hold for loose stool Hypertension stabilizing. Clonidine being given at lower dose BID, being held occasionally based on parameters and blood pressure has been stable. BP has been pretty labile in this patient previously and I am attempting to regulate it on a regular schedule before she is discharged. Right shoulder pain improving. Decreased ability to tolerate passive ROM. Previous fall before CVA. ROM improving daily. Continue to improve ROM, strengthening and taking Voltaren occasionally. Otherwise, denies MSK pain. Cough with production noted again today. Lungs sound clear. Started several days ago. Denies dyspnea. Chest x-ray negative for acute process. Tolerating duonebs - monitor for improvement. Excessive drooling from radiation treatment, will avoid scopolamine. Renal function worse. Tolerating increased water flushes, creatinine improving, monitor. Maintain NPO for dysphagia. Tolerating feedings via bolus. All records, vitals, labs and medications were reviewed. No other issues per patient, nursing or therapy. Objective - Exam Narrative Exam: MUSCULOSKELETAL SPECIALTY EXAM CONSTITUTIONAL: Well developed, well nourished, appropriately groomed. RIGHT hand dominant. RESPIRATORY: Clear to auscultation bilaterally, no increased work of breathing. Cough CARDIOVASCULAR: Regular Rate/ Rhythm, no swelling, edema or tenderness in BUE or BLE. All extremities warm. GI: + bowel sounds, soft, NTTP, nondistended. PEG tube present. Excessive drooling due to radiation noted. INTEGUMENTARY: Normal, no lesion, rash, masses or bruising noted in extremities. MUSCULOSKELETAL: Point tenderness to palpation at the right anterior shoulder, otherwise BUE and BLE normal without defect, crepitus, subluxation, effusion, arthritic changes or TTP. RUE 4-/5 RLE 3/5 LUE / LLE 5/5 ROM decreased on right, within functional limit on the left Tone normal NEURO: CN II - XII grossly intact Sensation intact in all extremities without extinction. Coordination intact in BUE. No tremor noted in 4 extremities. Naming and repetition intact. Follows 2 step commands. 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 Balance appears reasonable. Gait slowed with decreased clearance of the right lower extremity even with the use of [place] knee cage and AFO. No overt loss of balance witnessed. PSYCH: Alert, oriented x3, affect appears flat. Insight appears intact. - Constitutional Vitals: Vital Signs - 12hr 05/14/19 05/14/19 07:23 08:46 Temperature 36.6 C Pulse Rate 77 Pulse Rate [ 72 Anterior Bilateral Throughout] Respiratory 18 Rate Respiratory 16 Rate [Anterior Bilateral Throughout] Blood Pressure 125/70 O2 Sat by Pulse 100 Oximetry - Allied health notes Allied health notes reviewed: nursing, PT, OT FIMS assessment as documented by PT/OT/ST: Social interaction/Memory/Problem solving Memory FIM Score 6. Modified [place](Mild difficulty remembering people/routines.) Problem Solving FIM Score 5. Supervision (Needs cueing <10% to solve routine problems.) Locomotion- walk/wheelchair Ambulation Distance 25 - Labs CBC & Chem 7: 05/12/19 07:37 05/14/19 07:26 Labs: Laboratory Results - last 72 hr 05/12/19 05/12/19 05/12/19 07:37 07:37 10:19 WBC 3.2 L RBC 3.58 L Hgb 11.1 Hct 32.8 MCV 92 MCH 31 MCHC 34 RDW 14.8 Plt Count 197 Sodium TNR 140 Potassium TNR 4.9 Chloride TNR 100.1 Carbon Dioxide TNR 24 Anion Gap TNR 21 BUN TNR 32 H Creatinine TNR 1.4 H Estimated GFR TNR 48 BUN/Creatinine Ratio TNR 23 Glucose TNR 92 Calcium TNR 10.3 H 05/14/19 07:26 WBC RBC Hgb Hct MCV MCH MCHC RDW Plt Count Sodium 139 Potassium 4.5 Chloride 98.3 Carbon Dioxide 24 Anion Gap 21 BUN 33 H Creatinine 1.3 H Estimated GFR 52 BUN/Creatinine Ratio 25 Glucose 134 H Calcium 10.3 H Assessment and Plan CVA dominant right luis m-paresis: Continue secondary stroke prevention (antithrombotic, statin (goal LDLsee less than 70), BP control (goal less than 140/90), glucose control (goal A1c less than 7), and lifestyle modification). Monitor for recurrent stroke or poststroke recrudescence. Continue neuromotor therapy as above. Family training when available. Monitor for post stroke depression, cognitive effects, seizure, dysfunction, aphasia, shoulder-hand syndrome, sensory deficits, spasticity, bowel/bladder deficits, sleep disturbance, vision deficits and DVT. Prognosis for recovery and secondary stroke prevention discussed. Follow-up with neurology at discharge. No driving until cleared by neurologist. Dysphagia: Continue PEG tube feedings. 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 We will defer retesting for swallowing. Patient notes that GI attempted esophageal dilatation however could not accomplish this. May be able to reattempt at a later date. Cough: some production. CXR ordered and reviewed. No acute process. Start Duoneb nebulizers x3 days Hypertension: Labile and poorly controlled. Both PCP and psych therapist working diligently on this as outpatient. We'll continue to attempt to control with th is few meds possible. Blood pressure checks every 4 hours while awake. Hold orders placed on all antihypertensives. Hydralazine prn only now. Attempt to adjust clonidine for better control. Left shoulder pain: Start Voltaren gel monitor for improvement. Ranging and strengthening per OT. Modalities as needed. X-ray right shoulder with OA, NEG for Fx. Asthma: Continue albuterol nebulizers when necessary. Insomnia: Not better with Ambien at outside hospital. Seems to be improved with trazodone, continue to monitor Anemia: Monitor and replace components as needed. Transfusion for hemoglobin less than 7. Improved Nutrition: Continue PEG feeds with bolus feeding. Dietitian consulted. Water flushes to avoid dehydration. Monitor labs on a frequent basis. PEG care per protocol. Z73.6 ADL dysfunction: OT will work on improving ability to perform ADLs (including assistive devices) to increase independence and decrease caregiver burden and improve functional transfers and mobility training. R26.2 Difficulty walking: PT will work on gait training and proper use of assistive devices and advance as appropriate to use of stairs and outside ambulation on uneven surfaces. R26.81 Unsteadiness on feet: PT will work on improving static and dynamic sitting and standing balance as well as proper use of assistive devices to decrease risk of falls. R26.89 Abnormality of gait: PT will work to improve safety and efficiency of gait through neuromotor training and gait training along with instruction on proper use of assistive devices. M62.81 Muscle weakness: PT & OT will work on strengthening exercises to improve functional strength including mixture of closed and open kinetic chain exercises. R53.81 Debility: PT & OT will work on improving overall functional status to improve participation with ADLs, mobility and social involvement. R53.83 Fatigue: PT & OT will work on improving endurance through aerobic exercises and therapeutic activity while monitoring patients tolerance for activity and vital signs as needed. DVT ppx: Heparin, monitor closely for bleeding as she is on Plavix and aspirin as well Pain: Continue physical modalities in therapy and pain medications as needed to achieve functional pain control. Sleep: Monitor and address as needed. Bowel: Monitor and address as needed. Appetite: Monitor and address as needed. Discharge planning: Pending therapy progress and care plan meeting. Will continue discussion with therapy team, SW, patient and family. Look to discharge on May 25 Restrictions/ Precautions: Falls, aspiration (NPO) WB status: FWB Functional Hx: ADLs: Independent Cognition: Independent Mobility: No AD Barriers to Discharge: Decreased mobility and ability to perform self care, balance deficits, weakness Estimated Length of Stay: 14-21 days. Discharge Destination: Home alone with daughter to assist at discharge
[2019-05-14] MEDS: traZODone 50 MG TAB PO SCH (21:51)
[2019-05-15] MEDS: HEPARIN 5,000 UNIT/1 ML VIAL SUB-Q SCH ×3 (05:20→21:57)
[2019-05-15] MEDS: GABAPENTIN 500 MG/10 ML ORAL LIQD FEEDTUBE SCH ×3 (05:21→21:56)
[2019-05-15] MEDS: IPRATROPIUM/ALBUTEROL SULFATE 3 ML AMPUL.NEB IH SCH ×3 (07:30→20:02)
[2019-05-15] MEDS: POLYETHYLENE GLYCOL 3350 17 GM POWDER FEEDTUBE SCH (09:25)
[2019-05-15] MEDS: amLODIPine 10 MG TAB FEEDTUBE SCH (09:26)
[2019-05-15] MEDS: cloNIDine 0.1 MG TAB FEEDTUBE SCH ×2 (09:26→21:56)
[2019-05-15] MEDS: ASPIRIN 81 MG TAB CHEW FEEDTUBE SCH (09:26)
[2019-05-15] MEDS: carvediloL 25 MG TAB FEEDTUBE SCH ×2 (09:26→21:55)
[2019-05-15] MEDS: CLOPIDOGREL 75 MG TAB FEEDTUBE SCH (09:27)
[2019-05-15] MEDS: oxyCODONE /ACETAMINOPHEN 5-325MG TAB FEEDTUBE PRN (21:54)
[2019-05-15] MEDS: traZODone 50 MG TAB PO SCH (21:56)
[2019-05-16] MEDS: HEPARIN 5,000 UNIT/1 ML VIAL SUB-Q SCH ×3 (06:22→22:54)
[2019-05-16] MEDS: GABAPENTIN 500 MG/10 ML ORAL LIQD FEEDTUBE SCH ×3 (06:22→22:54)
[2019-05-16] MEDS: IPRATROPIUM/ALBUTEROL SULFATE 3 ML AMPUL.NEB IH SCH (07:50)
[2019-05-16] MEDS: cloNIDine 0.1 MG TAB FEEDTUBE SCH ×2 (08:01→23:03)
[2019-05-16 08:07] LABS: Calcium 10.4 mg/dL (8.4-10.2)
[2019-05-16] MEDS: POLYETHYLENE GLYCOL 3350 17 GM POWDER FEEDTUBE SCH (08:49)
[2019-05-16] MEDS: ASPIRIN 81 MG TAB CHEW FEEDTUBE SCH (08:50)
[2019-05-16] MEDS: CLOPIDOGREL 75 MG TAB FEEDTUBE SCH (08:50)
[2019-05-16] MEDS: amLODIPine 10 MG TAB FEEDTUBE SCH (08:50)
[2019-05-16] MEDS: carvediloL 25 MG TAB FEEDTUBE SCH ×2 (08:53→23:01)
[2019-05-16] MEDS: oxyCODONE /ACETAMINOPHEN 5-325MG TAB FEEDTUBE PRN ×5 (08:54→23:08)
--- NOTE | 2019-05-16 12:20 | Progress Note ---
Subjective Date of service: 05/16/19 Principal diagnosis: CVA Interval history: 53-year-old female who developed weakness in the right lower extremity and started having falls reported ED for further workup. 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 This is thought to possibly due to either cardioembolic versus endocarditis versus accelerated atherosclerotic disease secondary to radiation with a right ICA occlusion area echo showed ejection fraction 55% with grade 1 diastolic dysfunction and no PFO or valvular vegetations. Blood cultures showed no growth ruling out endocarditis. Patient was did not have atrial fibrillation in the hospital but has been referred to a electric welder helper as an outpatient for Holter monitoring for 30 days. She developed acute kidney injury which improved with IV fluids. Review of the roughly 120 pages of documents provided showed that she refused regular tube feedings even though she has a PEG. Apparently she was approved for clear liquids but she states that she still feels like she aspirates when attempting this. She was using commercial [id number] ensure bottles for nutrition following that with water and apple juice. After di scussing with her the pitfalls with this and the determining that her primary issue with the tube feeds was the pump apparatus that was being used we have opted to start her on bolus feeding. We'll follow up with labs in the morning. She notes that she was taking Ambien for sleep however did not help that well in the hospital. We'll try trazodone and monitor for improvement. Also notes that her shoulder has been fairly sore but does not necessarily point to the shoulder joint itself more so on the bicep. Patient is participating in therapy and making reasonable progress. Tolerating trazodone. Taking rest breaks as needed. Tolerating increased TF (of note- she requested decreased TF earlier w/o my knowledge and the TF is now back to the ordered amount). Patient reports a near fall going to bathroom unassisted. No pain/injury. No TTP. +BM. Some N. Denies Abd pain, V. Cont miralax and hold for loose stool Hypertension stabilizing. Clonidine being given at lower dose BID, being held occasionally based on parameters and blood pressure has been stable. BP has been pretty labile in this patient previously and I am attempting to regulate it on a regular schedule before she is discharged. Right shoulder pain improving. Decreased ability to tolerate passive ROM. Previous fall before CVA. ROM improving daily. Continue to improve ROM, strengthening and taking Voltaren occasionally. Otherwise, denies MSK pain. Cough with production noted again today. Lungs sound clear. Started several days ago. Denies dyspnea. Chest x-ray negative for acute process. Tolerating duonebs - monitor for improvement. Excessive drooling from radiation treatment, will avoid scopolamine. Renal function worse. Tolerating increased water flushes, creatinine improving, monitor. Maintain NPO for dysphagia. Tolerating feedings via bolus. All records, vitals, labs and medications were reviewed. No other issues per patient, nursing or therapy. Objective - Exam Narrative Exam: MUSCULOSKELETAL SPECIALTY EXAM CONSTITUTIONAL: Well developed, well nourished, appropriately groomed. RIGHT hand dominant. RESPIRATORY: Clear to auscultation bilaterally, no increased work of breathing. Cough CARDIOVASCULAR: Regular Rate/ Rhythm, no swelling, edema or tenderness in BUE or BLE. All extremities warm. GI: + bowel sounds, soft, NTTP, nondistended. PEG tube present. Excessive drooling due to radiation noted. INTEGUMENTARY: Normal, no lesion, rash, masses or bruising noted in extremities. MUSCULOSKELETAL: Point tenderness to palpation at the right anterior shoulder, otherwise BUE and BLE normal without defect, crepitus, subluxation, effusion, arthritic changes or TTP. RUE 4-/5 RLE 3/5 LUE / LLE 5/5 ROM decreased on right, within functional limit on the left Tone normal NEURO: CN II - XII grossly intact Sensation intact in all extremities without extinction. Coordination intact in BUE. No tremor noted in 4 extremities. Naming and repetition intact. Follows 2 step commands. 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 Balance appears reasonable. Gait slowed with decreased clearance of the right lower extremity even with the use of [place] knee cage and AFO. No overt loss of balance witnessed. PSYCH: Alert, oriented x3, affect appears flat. Insight appears intact. - Constitutional Vitals: Vital Signs - 12hr 05/16/19 05/16/19 05/16/19 07:05 07:51 08:53 Temperature 36.7 C Pulse Rate 72 74 Pulse Rate [ 79 Anterior Bilateral Throughout] Respiratory 18 Rate Respiratory 18 Rate [Anterior Bilateral Throughout] Blood Pressure 117/68 118/64 O2 Sat by Pulse 100 Oximetry - Allied health notes Allied health notes reviewed: nursing, PT, OT FIMS assessment as documented by PT/OT/ST: Social interaction/Memory/Problem solving Memory FIM Score 6. Modified [place](Mild difficulty remembering people/routines.) Problem Solving FIM Score 5. Supervision (Needs cueing <10% to solve routine problems.) Locomotion- walk/wheelchair Ambulation Distance 25 - Labs CBC & Chem 7: 05/16/19 12:04 05/16/19 07:14 Labs: Laboratory Results - last 72 hr 05/14/19 05/16/19 07:26 07:14 Sodium 139 138 Potassium 4.5 4.7 Chloride 98.3 98.4 Carbon Dioxide 24 23 Anion Gap 21 21 BUN 33 H 35 H Creatinine 1.3 H 1.3 H Estimated GFR 52 52 BUN/Creatinine Ratio 25 27 Glucose 134 H 122 H Calcium 10.3 H 10.4 H Assessment and Plan CVA dominant right luis m-paresis: Continue secondary stroke prevention (antithrombotic, statin (goal LDLsee less than 70), BP control (goal less than 140/90), glucose control (goal A1c less than 7), and lifestyle modification). Monitor for recurrent stroke or poststroke recrudescence. Continue neuromotor therapy as above. Family training when available. Monitor for post stroke depression, cognitive effects, seizure, dysfunction, aphasia, shoulder-hand syndrome, sensory deficits, spasticity, bowel/bladder deficits, sleep disturbance, vision deficits and DVT. Prognosis for recovery and secondary stroke prevention discussed. Follow-up with neurology at discharge. No driving until cleared by neurologist. Dysphagia: Continue PEG tube feedings. 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 We will defer retesting for swallowing. Patient notes that GI attempted esophageal dilatation however could not accomplish this. May be able to reattempt at a later date. Cough: some production. CXR ordered and reviewed. No acute process. Start Duoneb nebulizers x3 days Hypertension: Labile and poorly controlled. Both PCP and electric welder helper working diligently on this as outpatient. We'll continue to attempt to control with this few meds possible. Blood pressure checks every 4 hours while awake. Hold orders placed on all antihypertensives. Hydralazine prn only now. Attempt to adjust clonidine for better control. Left shoulder pain: Start Voltaren gel monitor for improvement. Ranging and strengthening per OT. Modalities as needed. X-ray right shoulder with OA, NEG for Fx. Pain med increased. Asthma: Continue albuterol nebulizers when necessary. Insomnia: Not better with Ambien at outside hospital. Seems to be improved with trazodone, continue to monitor Anemia: Monitor and replace components as needed. Transfusion for hemoglobin less than 7. Improved Nutrition: Continue PEG feeds with bolus feeding. Dietitian consulted. Water flushes to avoid dehydration. Monitor labs on a frequent basis. PEG care per protocol. Z73.6 ADL dysfunction: OT will work on improving ability to perform ADLs (including assistive devices) to increase independence and decrease caregiver burden and improve functional transfers and mobility training. R26.2 Difficulty walking: PT will work on gait training and proper use of assistive devices and advance as appropriate to use of stairs and outside ambulation on uneven surfaces. R26.81 Unsteadiness on feet: PT will work on improving static and dynamic sitting and standing balance as well as proper use of assistive devices to decrease risk of falls. R26.89 Abnormality of gait: PT will work to improve safety and efficiency of gait through neuromotor training and gait training along with instruction on proper use of assistive devices. M62.81 Muscle weakness: PT & OT will work on strengthening exercises to improve functional strength including mixture of closed and open kinetic chain exercises. R53.81 Debility: PT & OT will work on improving overall functional status to improve participation with ADLs, mobility and social involvement. R53.83 Fatigue: PT & OT will work on improving endurance through aerobic exercises and therapeutic activity while monitoring patients tolerance for activity and vital signs as needed. DVT ppx: Heparin, monitor closely for bleeding as she is on Plavix and aspirin as well Pain: Continue physical modalities in therapy and pain medications as needed to achieve functional pain control. Sleep: Monitor and address as needed. Bowel: Monitor and address as needed. Appetite: Monitor and address as needed. Discharge planning: Pending therapy progress and care plan meeting. Will continue discussion with therapy team, SW, patient and family. Look to dis charge on May 25 Restrictions/ Precautions: Falls, aspiration (NPO) WB status: FWB Functional Hx: ADLs: Independent Cognition: Independent Mobility: No AD Barriers to Discharge: Decreased mobility and ability to perform self care, balance deficits, weakness Estimated Length of Stay: 14-21 days. Discharge Destination: Home alone with daughter to assist at discharge
[2019-05-16 12:29] LABS: Hematocrit 33.1 % (30.3-42.9); Hemoglobin 11.1 gm/dl (10.1-14.3); Mean Corpuscular HGB Conc 34 % (30-34); Mean Corpuscular Volume 92 fl (79-97); Platelet Count 263 K/mm3 (140-440); Red Blood Count 3.62 M/mm3 (3.65-5.03); Red Cell Distribution Width 14.5 % (13.2-15.2)
[2019-05-16] MEDS: traZODone 50 MG TAB PO SCH (22:55)
[2019-05-17] MEDS: GABAPENTIN 500 MG/10 ML ORAL LIQD FEEDTUBE SCH ×3 (06:26→22:40)
[2019-05-17] MEDS: HEPARIN 5,000 UNIT/1 ML VIAL SUB-Q SCH ×3 (06:26→22:43)
[2019-05-17] MEDS: oxyCODONE /ACETAMINOPHEN 5-325MG TAB FEEDTUBE PRN ×4 (06:27→20:53)
[2019-05-17] MEDS: POLYETHYLENE GLYCOL 3350 17 GM POWDER FEEDTUBE SCH (08:33)
[2019-05-17] MEDS: carvediloL 25 MG TAB FEEDTUBE SCH ×2 (08:33→22:42)
[2019-05-17] MEDS: CLOPIDOGREL 75 MG TAB FEEDTUBE SCH (08:33)
[2019-05-17] MEDS: amLODIPine 10 MG TAB FEEDTUBE SCH (08:34)
[2019-05-17] MEDS: ASPIRIN 81 MG TAB CHEW FEEDTUBE SCH (08:34)
[2019-05-17] MEDS: cloNIDine 0.1 MG TAB FEEDTUBE SCH ×2 (08:34→22:42)
[2019-05-17 13:32] LABS: Hematocrit 35.1 % (30.3-42.9); Hemoglobin 11.3 gm/dl (10.1-14.3); Mean Corpuscular HGB Conc 32 % (30-34); Mean Corpuscular Volume 94 fl (79-97); Platelet Count 222 K/mm3 (140-440); Red Blood Count 3.74 M/mm3 (3.65-5.03); Red Cell Distribution Width 14.6 % (13.2-15.2)
--- NOTE | 2019-05-17 16:31 | Progress Note ---
Subjective Date of service: 05/17/19 Principal diagnosis: CVA Interval history: 53-year-old female who developed weakness in the right lower extremity and started having falls reported ED for further workup. 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 This is thought to possibly due to either cardioembolic versus endocarditis versus accelerated atherosclerotic disease secondary to radiation with a right ICA occlusion area echo showed ejection fraction 55% with grade 1 diastolic dysfunction and no PFO or valvular vegetations. Blood cultures showed no growth ruling out endocarditis. Patient was did not have atrial fibrillation in the hospital but has been referred to a dietary cook as an outpatient for Holter monitoring for 30 days. She developed acute kidney injury which improved with IV fluids. Review of the roughly 120 pages of documents provided showed that she refused regular tube feedings even though she has a PEG. Apparently she was approved for clear liquids but she states that she still feels like she aspirates when attempting this. She was using commercial [id number] ensure bottles for nutrition following that with water and apple juice. After di scussing with her the pitfalls with this and the determining that her primary issue with the tube feeds was the pump apparatus that was being used we have opted to start her on bolus feeding. We'll follow up with labs in the morning. She notes that she was taking Ambien for sleep however did not help that well in the hospital. We'll try trazodone and monitor for improvement. Also notes that her shoulder has been fairly sore but does not necessarily point to the shoulder joint itself more so on the bicep. Patient is participating in therapy and making reasonable progress. Tolerating trazodone. Taking rest breaks as needed. Tolerating increased TF (of note- she requested decreased TF earlier w/o my knowledge and the TF is now back to the ordered amount). +BM. Denies Abd pain,N/ V. Cont miralax and hold for loose stool Hypertension stabilizing. Higher BP earlier, not sure that I believe the result. Clonidine being given at lower dose BID, being held occasionally based on parameters and blood pressure has been stable. BP has been pretty labile in t his patient previously and I am attempting to regulate it on a regular schedule before she is discharged. Right shoulder pain improving. Decreased ability to tolerate passive ROM. Previous fall before CVA. ROM improving daily. Continue to improve ROM, strengthening and taking Voltaren occasionally. Otherwise, denies MSK pain. Cough not reported today. Lungs sound clear. Started several days ago. Denies dyspnea. Chest x-ray negative for acute process. Tolerating duonebs - monitor for improvement. Excessive drooling from radiation treatment, will avoid scopolamine. Renal function worse. Tolerating increased water flushes, creatinine improving, monitor. Maintain NPO for dysphagia. Tolerating feedings via bolus. All records, vitals, labs and medications were reviewed. No other issues per patient, nursing or therapy. Objective - Exam Narrative Exam: MUSCULOSKELETAL SPECIALTY EXAM CONSTITUTIONAL: Well developed, well nourished, appropriately groomed. RIGHT hand dominant. RESPIRATORY: Clear to auscultation bilaterally, no increased work of breathing. CARDIOVASCULAR: Regular Rate/ Rhythm, no swelling, edema or tenderness in BUE or BLE. All extremities warm. GI: + bowel sounds, soft, NTTP, nondistended. PEG tube present. Excessive drooling due to radiation noted. INTEGUMENTARY: Normal, no lesion, rash, masses or bruising noted in extremities. MUSCULOSKELETAL: Point tenderness to palpation at the right anterior shoulder, otherwise BUE and BLE normal without defect, crepitus, subluxation, effusion, arthritic changes or TTP. RUE 4-/5 RLE 3/5 LUE / LLE 5/5 ROM decreased on right, within functional limit on the left Tone normal NEURO: CN II - XII grossly intact Sensation intact in all extremities without extinction. Coordination intact in BUE. No tremor noted in 4 extremities. Naming and repetition intact. Follows 2 step commands. 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 Balance appears reasonable. Gait slowed with decreased clearance of the right lower extremity even with the use of [place] knee cage and AFO. No overt loss of balance witnessed. PSYCH: Alert, oriented x3, affect appears flat. Insight appears intact. - Constitutional Vitals: Vital Signs - 12hr 05/17/19 05/17/19 05/17/19 05:40 05:41 07:27 Temperature 36.6 C Pulse Rate 71 74 Respiratory 18 19 Rate Blood Pressure 113/64 O2 Sat by Pulse 99 99 Oximetry 05/17/19 05/17/19 08:30 16:12 Temperature 36.6 C 36.4 C Pulse Rate 76 69 Respiratory 19 19 Rate Blood Pressure 126/75 141/76 O2 Sat by Pulse 100 98 Oximetry - Allied health notes Allied health notes reviewed: nursing, PT, OT FIMS assessment as documented by PT/OT/ST: Social interaction/Memory/Problem solving Memory FIM Score 6. Modified [place](Mild difficulty remembering people/routines.) Problem Solving FIM Score 5. Supervision (Needs cueing <10% to solve routine problems.) Locomotion- walk/wheelchair Ambulation Distance 25 - Labs CBC & Chem 7: 05/17/19 11:47 05/16/19 07:14 Labs: Laboratory Results - last 72 hr 05/16/19 05/16/19 05/17/19 07:14 12:04 11:47 WBC 3.8 L 3.7 L RBC 3.62 L 3.74 Hgb 11.1 11.3 Hct 33.1 35.1 MCV 92 94 MCH 31 30 MCHC 34 32 RDW 14.5 14.6 Plt Count 263 222 Sodium 138 Potassium 4.7 Chloride 98.4 Carbon Dioxide 23 Anion Gap 21 BUN 35 H Creatinine 1.3 H Estimated GFR 52 BUN/Creatinine Ratio 27 Glucose 122 H Calcium 10.4 H Assessment and Plan CVA dominant right luis m-paresis: Continue secondary stroke prevention (antithrombotic, statin (goal LDLsee less than 70), BP control (goal less than 140/90), glucose control (goal A1c less than 7), and lifestyle modification). Monitor for recurrent stroke or poststroke recrudescence. Continue neuromotor therapy as above. Family training when available. Monitor for post stroke depression, cognitive effects, seizure, dysfunction, aphasia, shoulder-hand syndrome, sensory deficits, spasticity, bowel/bladder deficits, sleep disturbance, vision deficits and DVT. Prognosis for recovery and secondary stroke prevention discussed. Follow-up with neurology at discharge. No driving until cleared by neurologist. Dysphagia: Continue PEG tube feedings. 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 We will defer retesting for swallowing. Patient notes that GI attempted esophageal dilatation however could not accomplish this. May be able to reattempt at a later date. Cough: some production. CXR ordered and reviewed. No acute process. Start Duoneb nebulizers x3 days Hypertension: Labile and poorly controlled. Both PCP and dietary cook working diligently on this as outpatient. We'll continue to attempt to control with this few meds possible. Blood pressure checks every 4 hours while awake. Hold orders placed on all antihypertensives. Hydralazine prn only now. Attempt to adjust clonidine for better control. Left shoulder pain: Voltaren gel monitor for improvement. Ranging and streng thening per OT. Modalities as needed. X-ray right shoulder with OA, NEG for Fx. Pain med increased. Asthma: Continue albuterol nebulizers when necessary. Insomnia: Not better with Ambien at outside hospital. Seems to be improved with trazodone, continue to monitor Anemia: Monitor and replace components as needed. Transfusion for hemoglobin less than 7. Improved Nutrition: Continue PEG feeds with bolus feeding. Dietitian consulted. Water flushes to avoid dehydration. Monitor labs on a frequent basis. PEG care per protocol. Z73.6 ADL dysfunction: OT will work on improving ability to perform ADLs (including assistive devices) to increase independence and decrease caregiver burden and improve functional transfers and mobility training. R26.2 Difficulty walking: PT will work on gait training and proper use of assistive devices and advance as appropriate to use of stairs and outside ambulation on uneven surfaces. R26.81 Unsteadiness on feet: PT will work on improving static and dynamic sitting and standing balance as well as proper use of assistive devices to decrease risk of falls. R26.89 Abnormality of gait: PT will work to improve safety and efficiency of gait through neuromotor training and gait training along with instruction on proper use of assistive devices. M62.81 Muscle weakness: PT & OT will work on strengthening exercises to improve functional strength including mixture of closed and open kinetic chain exercises. R53.81 Debility: PT & OT will work on improving overall functional status to improve participation with ADLs, mobility and social involvement. R53.83 Fatigue: PT & OT will work on improving endurance through aerobic exercises and therapeutic activity while monitoring patients tolerance for activity and vital signs as needed. DVT ppx: Heparin, monitor closely for bleeding as she is on Plavix and aspirin as well Pain: Continue physical modalities in therapy and pain medications as needed to achieve functional pain control. Sleep: Monitor and address as needed. Bowel: Monitor and address as needed. Appetite: Monitor and address as needed. Discharge planning: Pending therapy progress and care plan meeting. Will continue discussion with therapy team, SW, patient and family. Look to discharge on May 25 Restrictions/ Precautions: Falls, aspiration (NPO) WB status: FWB Functional Hx: ADLs: Independent Cognition: Independent Mobility: No AD Barriers to Discharge: Decreased mobility and ability to perform self care, balance deficits, weakness Estimated Length of Stay: 14-21 days. Discharge Destination: Home alone with daughter to assist at discharge
[2019-05-17] MEDS: traZODone 50 MG TAB PO SCH (21:43)
[2019-05-18] MEDS: GABAPENTIN 500 MG/10 ML ORAL LIQD FEEDTUBE SCH ×3 (06:01→22:26)
[2019-05-18] MEDS: HEPARIN 5,000 UNIT/1 ML VIAL SUB-Q SCH ×3 (06:02→22:28)
[2019-05-18 08:29] LABS: Calcium 10.1 mg/dL (8.4-10.2)
[2019-05-18] MEDS: oxyCODONE /ACETAMINOPHEN 5-325MG TAB FEEDTUBE PRN ×3 (09:08→22:24)
[2019-05-18] MEDS: POLYETHYLENE GLYCOL 3350 17 GM POWDER FEEDTUBE SCH (09:09)
[2019-05-18] MEDS: ASPIRIN 81 MG TAB CHEW FEEDTUBE SCH (09:09)
[2019-05-18] MEDS: carvediloL 25 MG TAB FEEDTUBE SCH ×2 (09:09→22:25)
[2019-05-18] MEDS: CLOPIDOGREL 75 MG TAB FEEDTUBE SCH (09:09)
[2019-05-18] MEDS: amLODIPine 10 MG TAB FEEDTUBE SCH (09:09)
[2019-05-18] MEDS: cloNIDine 0.1 MG TAB FEEDTUBE SCH ×2 (09:18→22:26)
[2019-05-18 13:20] LABS: Hemoglobin 11.3 gm/dl (10.1-14.3); Mean Corpuscular HGB Conc 34 % (30-34); Mean Corpuscular Volume 92 fl (79-97); Platelet Count 215 K/mm3 (140-440); Red Blood Count 3.61 M/mm3 (3.65-5.03); Red Cell Distribution Width 14.5 % (13.2-15.2)
--- NOTE | 2019-05-18 14:47 | Progress Note ---
Subjective Date of service: 05/18/19 Principal diagnosis: CVA Interval history: 53-year-old female who developed weakness in the right lower extremity and started having falls reported ED for further workup. 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 This is thought to possibly due to either cardioembolic versus endocarditis versus accelerated atherosclerotic disease secondary to radiation with a right ICA occlusion area echo showed ejection fraction 55% with grade 1 diastolic dysfunction and no PFO or valvular vegetations. Blood cultures showed no growth ruling out endocarditis. Patient was did not have atrial fibrillation in the hospital but has been referred to a laboratory machinist as an outpatient for Holter monitoring for 30 days. She developed acute kidney injury which improved with IV fluids. Review of the roughly 120 pages of documents provided showed that she refused regular tube feedings even though she has a PEG. Apparently she was approved for clear liquids but she states that she still feels like she aspirates when attempting this. She was using commercial [id number] ensure bottles for nutrition following that with water and apple juice. After di scussing with her the pitfalls with this and the determining that her primary issue with the tube feeds was the pump apparatus that was being used we have opted to start her on bolus feeding. We'll follow up with labs in the morning. She notes that she was taking Ambien for sleep however did not help that well in the hospital. We'll try trazodone and monitor for improvement. Also notes that her shoulder has been fairly sore but does not necessarily point to the shoulder joint itself more so on the bicep. Patient is participating in therapy and making reasonable progress. Tolerating trazodone. Taking rest breaks as needed. CVA: No neurologic changes noted. Patient appears flat at times however does not appear to have sarah depression. No issues with spasticity or bowel and bladder. +BM. Denies Abd pain,N/ V. Cont miralax and hold for loose stool Hypertension stabilizing. Clonidine being given at lower dose BID, being held occasionally based on parameters and blood pressure has been stable. BP has been pretty labile in this patient previously and I am attempting to regulate it on a regular schedule before she is discharged. Right shoulder pain improving. She is able to actively move it further than she is able to tolerate passive movement. Decreased ability to tolerate passive ROM. Previous fall before CVA. ROM improving daily. Continue to improve ROM, strengthening and taking Voltaren occasionally. Otherwise, denies MSK pain. Cough noted during exam. Lungs sound clear. Started several days ago. Denies dyspnea. Chest x-ray negative for acute process. monitor for improvement. Excessive drooling from radiation treatment, will avoid scopolamine. Renal function stable. Tolerating increased water flushes, may need to increase water flushes again, monitor. Maintain NPO for dysphagia. Tolerating feedings via bolus. All records, vitals, labs and medications were reviewed. No other issues per patient, nursing or therapy. Objective - Exam Narrative Exam: MUSCULOSKELETAL SPECIALTY EXAM CONSTITUTIONAL: Well developed, well nourished, appropriately groomed. RIGHT hand dominant. RESPIRATORY: Clear to auscultation bilaterally, no increased work of breathing. Cough noted. CARDIOVASCULAR: Regular Rate/ Rhythm, no swelling, edema or tenderness in BUE or BLE. All extr emities warm. GI: + bowel sounds, soft, NTTP, nondistended. PEG tube present. Excessive drooling due to radiation noted. INTEGUMENTARY: Normal, no lesion, rash, masses or bruising noted in extremities. MUSCULOSKELETAL: Point tenderness to palpation at the right anterior shoulder, otherwise BUE and BLE normal without defect, crepitus, subluxation, effusion, arthritic changes or TTP. RUE 4-/5 RLE 3/5 LUE / LLE 5/5 ROM decreased on right but improving, within functional limit on the left Tone normal NEURO: CN II - XII grossly intact Sensation intact in all extremities without extinction. Coordination intact in BUE. No tremor noted in 4 extremities. Naming and repetition intact. Follows 2 step commands. 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 Balance appears reasonable. Gait slowed with decreased clearance of the right lower extremity even with the use of [place] knee cage and AFO. Occasional LOB. PSYCH: Alert, oriented x3, affect appears flat. Insight appears intact. - Constitutional Vitals: Vital Signs - 12hr 05/18/19 05/18/19 05/18/19 07:20 09:09 09:18 Temperature 36.6 C Pulse Rate 76 71 71 Respiratory 18 Rate Blood Pressure 123/74 115/69 115/69 O2 Sat by Pulse 100 Oximetry - Allied health notes Allied health notes reviewed: nursing, PT, OT FIMS assessment as documented by PT/OT/ST: Social interaction/Memory/Problem solving Memory FIM Score 6. Modified [place](Mild difficulty remembering people/routines.) Problem Solving FIM Score 5. Supervision (Needs cueing <10% to solve routine problems.) Locomotion- walk/wheelchair Ambulation Distance 25 - Labs CBC & Chem 7: 05/18/19 12:41 05/18/19 07:22 Labs: Laboratory Results - last 72 hr 05/16/19 05/16/19 05/17/19 07:14 12:04 11:47 WBC 3.8 L 3.7 L RBC 3.62 L 3.74 Hgb 11.1 11.3 Hct 33.1 35.1 MCV 92 94 MCH 31 30 MCHC 34 32 RDW 14.5 14.6 Plt Count 263 222 Sodium 138 Potassium 4.7 Chloride 98.4 Carbon Dioxide 23 Anion Gap 21 BUN 35 H Creatinine 1.3 H Estimated GFR 52 BUN/Creatinine Ratio 27 Glucose 122 H Calcium 10.4 H 05/18/19 05/18/19 07:22 12:41 WBC 3.7 L RBC 3.61 L Hgb 11.3 Hct 33.0 MCV 92 MCH 31 MCHC 34 RDW 14.5 Plt Count 215 Sodium 139 Potassium 4.7 Chloride 99.6 Carbon Dioxide 21 L Anion Gap 23 BUN 37 H Creatinine 1.3 H Estimated GFR 52 BUN/Creatinine Ratio 28 Glucose 103 H Calcium 10.1 Assessment and Plan CVA dominant right luis m-paresis: Continue secondary stroke prevention (antithrombotic, statin (goal LDLsee less than 70), BP control (goal less than 140/90), glucose control (goal A1c less than 7), and lifestyle modification). Monitor for recurrent stroke or poststroke recrudescence. Continue neuromotor therapy as above. Family training when available. Monitor for post stroke depression, cognitive effects, seizure, dysfunction, aphasia, shoulder-hand syndrome, sensory deficits, spasticity, bowel/bladder deficits, sleep disturbance, vision deficits and DVT. Prognosis for recovery and secondary stroke prevention discussed. Follow-up with neurology at discharge. No driving until cleared by neurologist. Dysphagia: Continue PEG tube feedings. 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 We will defer retesting for swallowing. Patient notes that GI attempted esophageal dilatation however could not accomplish this. May be able to reattempt at a later date. Cough: some production. CXR ordered and reviewed. No acute process. Hypertension: Labile and poorly controlled. Both PCP and laboratory machinist working diligently on this as outpatient. We'll continue to attempt to control with this few meds possible. Blood pressure checks every 4 hours while awake. Hold orders placed on all antihypertensives. Hydralazine prn only now. Attempt to adjust clonidine for better control. Improving on reduced dosing. Left shoulder pain: Voltaren gel monitor for improvement. Ranging and strengthening per OT. Modalities as needed. X-ray right shoulder with OA, NEG for Fx. Pain med increased. Asthma: Continue albuterol nebulizers when necessary. Insomnia: Not better with Ambien at outside hospital. Seems to be improved with trazodone, continue to monitor Anemia: Monitor and replace components as needed. Transfusion for hemoglobin less than 7. Improved Nutrition: Continue PEG feeds with bolus feeding. Dietitian consulted. Water flushes to avoid dehydration. Monitor labs on a frequent basis. PEG care per protocol. Z73.6 ADL dysfunction: OT will work on improving ability to perform ADLs (including assistive devices) to increase independence and decrease caregiver burden and improve functional transfers and mobility training. R26.2 Difficulty walking: PT will work on gait training and proper use of assistive devices and advance as appropriate to use of stairs and outside ambulation on uneven surfaces. R26.81 Unsteadiness on feet: PT will work on improving static and dynamic sitting and standing balance as well as proper use of assistive devices to decrease risk of falls. R26.89 Abnormality of gait: PT will work to improve safety and efficiency of gait through neuromotor training and gait training along with instruction on proper use of assistive devices. M62.81 Muscle weakness: PT & OT will work on strengthening exercises to improve functional strength including mixture of closed and open kinetic chain exercises. R53.81 Debility: PT & OT will work on improving overall functional status to improve participation with ADLs, mobility and social involvement. R53.83 Fatigue: PT & OT will work on improving endurance through aerobic exercises and therapeutic activity while monitoring patients tolerance for activity and vital signs as needed. DVT ppx: Heparin, monitor closely for bleeding as she is on Plavix and aspirin as well Pain: Continue physical modalities in therapy and pain medications as needed to achieve functional pain control. Sleep: Monitor and address as needed. Bowel: Monitor and address as needed. Appetite: Monitor and address as needed. Discharge planning: Pending therapy progress and care plan meeting. Will continue discussion with therapy team, SW, patient and family. Look to disc harge on May 25 Restrictions/ Precautions: Falls, aspiration (NPO) WB status: FWB Functional Hx: ADLs: Independent Cognition: Independent Mobility: No AD Barriers to Discharge: Decreased mobility and ability to perform self care, balance deficits, weakness Estimated Length of Stay: 14-21 days. Discharge Destination: Home alone with daughter to assist at discharge
[2019-05-18] MEDS: traZODone 50 MG TAB PO SCH (22:24)
[2019-05-19] MEDS: HEPARIN 5,000 UNIT/1 ML VIAL SUB-Q SCH ×3 (05:59→21:30)
[2019-05-19] MEDS: GABAPENTIN 500 MG/10 ML ORAL LIQD FEEDTUBE SCH ×3 (06:00→21:30)
[2019-05-19] MEDS: cloNIDine 0.1 MG TAB FEEDTUBE SCH ×2 (09:36→21:30)
[2019-05-19] MEDS: POLYETHYLENE GLYCOL 3350 17 GM POWDER FEEDTUBE SCH (09:36)
[2019-05-19] MEDS: CLOPIDOGREL 75 MG TAB FEEDTUBE SCH (09:37)
[2019-05-19] MEDS: carvediloL 25 MG TAB FEEDTUBE SCH ×2 (09:37→21:30)
[2019-05-19] MEDS: ASPIRIN 81 MG TAB CHEW FEEDTUBE SCH (09:37)
[2019-05-19] MEDS: amLODIPine 10 MG TAB FEEDTUBE SCH (09:37)
[2019-05-19] MEDS: oxyCODONE /ACETAMINOPHEN 5-325MG TAB FEEDTUBE PRN ×3 (14:00→21:36)
--- NOTE | 2019-05-19 15:02 | Progress Note ---
Subjective Date of service: 05/19/19 Principal diagnosis: CVA Interval history: 53-year-old female who developed weakness in the right lower extremity and started having falls reported ED for further workup. 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 This is thought to possibly due to either cardioembolic versus endocarditis versus accelerated atherosclerotic disease secondary to radiation with a right ICA occlusion area echo showed ejection fraction 55% with grade 1 diastolic dysfunction and no PFO or valvular vegetations. Blood cultures showed no growth ruling out endocarditis. Patient was did not have atrial fibrillation in the hospital but has been referred to a hotel operations manager as an outpatient for Holter monitoring for 30 days. She developed acute kidney injury which improved with IV fluids. Review of the roughly 120 pages of documents provided showed that she refused regular tube feedings even though she has a PEG. Apparently she was approved for clear liquids but she states that she still feels like she aspirates when attempting this. She was using commercial [id number] ensure bottles for nutrition following that with water and apple juice. After di scussing with her the pitfalls with this and the determining that her primary issue with the tube feeds was the pump apparatus that was being used we have opted to start her on bolus feeding. We'll follow up with labs in the morning. She notes that she was taking Ambien for sleep however did not help that well in the hospital. We'll try trazodone and monitor for improvement. Also notes that her shoulder has been fairly sore but does not necessarily point to the shoulder joint itself more so on the bicep. Patient is participating in therapy and making reasonable progress. Tolerating trazodone. Taking rest breaks as needed. Tolerating increased TF (of note- she requested decreased TF earlier w/o my knowledge and the TF is now back to the ordered amount). CVA: No neurologic changes noted. Patient appears flat at times however does not appear to have sarah depression. No issues with spasticity or bowel and bladder. +BM. Denies Abd pain,N/ V. Cont miralax and hold for loose stool Hypertension stabilizing. Clonidine being given at lower dose BID, being held occasionally based on parameters and blood pressure has been stable. BP has been pretty labile in this patient previously and I am attempting to regulate it on a regular schedule before she is discharged. Right shoulder pain improving. She is able to actively move it further than she is able to tolerate passive movement. Decreased ability to tolerate passive ROM. Previous fall before CVA. ROM improving daily. Continue to improve ROM, strengthening and taking Voltaren occasionally. Otherwise, denies MSK pain. Cough noted during exam with some production. Lungs sound clear. Started several days ago. Denies dyspnea. Chest x-ray negative for acute process. monitor for improvement. Excessive drooling from radiation treatment, will avoid scopolamine. Renal function stable. Tolerating increased water flushes, may need to increase water flushes again, monitor. Maintain NPO for dysphagia. Tolerating feedings via bolus. Discussed during team conference. Patient is making good strides with therapy. Still having some loss of balance at times. Primarily due to her right lower extremity weakness. Utilizing both Iraqi knee cage as well as [id number] AFO. Will need a custom AFO which I will consult finger for in order to manufacture this. Progressing well with occupational therapy as well however she still has increased pain and decreased range of motion in the right upper extremity but it is better than previously. Blood pressure doing much better on adjust the medications. Continue therapy and look to discharge next week. She will be able to attend outpatient therapy. Discussed with therapy needs for wheelchair versus rolling walker and for safety purposes they think that a wheelchair would be best suited for her. She will also need a rolling walker for improving her ability to stand and ambulate however insurance will only pay for 1. We'll need a 3 in 1 as well. All records, vitals, labs and medications were reviewed. No other issues per patient, nursing or therapy. Objective - Exam Narrative Exam: MUSCULOSKELETAL SPECIALTY EXAM CONSTITUTIONAL: Well developed, well nourished, appropriately groomed. RIGHT hand dominant. RESPIRATORY: Clear to auscultation bilaterally, no increased work of breathing. Cough noted with some production. CARDIOVASCULAR: Regular Rate/ Rhythm, no swelling, edema or tenderness in BUE or BLE. All extremities warm. GI: + bowel sounds, soft, NTTP, nondistended. PEG tube present. Excessive drooling due to radiation noted. INTEGUMENTARY: Normal, no lesion, rash, masses or bruising noted in extremities. MUSCULOSKELETAL: Point tenderness to palpation at the right anterior shoulder, otherwise BUE and BLE normal without defect, crepitus, subluxation, effusion, arthritic changes or TTP. RUE 4-/5 RLE 3/5 LUE / LLE 5/5 ROM decreased on right, within functional limit on the left Tone normal NEURO: CN II - XII grossly intact Sensation intact in all extremities without extinction. Coordination intact in BUE. No tremor noted in 4 extremities. Naming and repetition intact. Follows 2 step commands. 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 Balance appears reasonable. Gait slowed with decreased clearance of the right lower extremity even with the use of Iraqi knee cage and AFO. PSYCH: Alert, oriented x3, affect appears flat. Insight appears intact. - Constitutional Vitals: Vital Signs - 12hr 05/19/19 05/19/19 05/19/19 08:02 09:36 09:37 Temperature 36.6 C Pulse Rate 77 77 77 Respiratory 18 Rate Blood Pressure 140/71 140/71 140/71 O2 Sat by Pulse 100 Oximetry - Allied health notes Allied health notes reviewed: nursing, PT, OT FIMS assessment as documented by PT/OT/ST: Social interaction/Memory/Problem solving Memory FIM Score 6. Modified [place](Mild difficulty remembering people/routines.) Problem Solving FIM Score 5. Supervision (Needs cueing <10% to solve routine problems.) Locomotion- walk/wheelchair Ambulation Distance 25 - Labs CBC & Chem 7: 05/18/19 12:41 05/18/19 07:22 Labs: Laboratory Results - last 72 hr 05/17/19 05/18/19 05/18/19 11:47 07:22 12:41 WBC 3.7 L 3.7 L RBC 3.74 3.61 L Hgb 11.3 11.3 Hct 35.1 33.0 MCV 94 92 MCH 30 31 MCHC 32 34 RDW 14.6 14.5 Plt Count 222 215 Sodium 139 Potassium 4.7 Chloride 99.6 Carbon Dioxide 21 L Anion Gap 23 BUN 37 H Creatinine 1.3 H Estimated GFR 52 BUN/Creatinine Ratio 28 Glucose 103 H Calcium 10.1 Assessment and Plan CVA dominant right luis m-paresis: Continue secondary stroke prevention (antithrombotic, statin (goal LDLsee less than 70), BP control (goal less than 140/90), glucose control (goal A1c less than 7), and lifestyle modification). Monitor for recurrent stroke or poststroke recrudescence. Continue neuromotor therapy as above. Family training when available. Monitor for post stroke depression, cognitive effects, seizure, dysfunction, aphasia, shoulder-hand sy ndrome, sensory deficits, spasticity, bowel/bladder deficits, sleep disturbance, vision deficits and DVT. Prognosis for recovery and secondary stroke prevention discussed. Follow-up with neurology at discharge. No driving until cleared by neurologist. Dysphagia: Continue PEG tube feedings. 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 We will defer retesting for swallowing. Patient notes that GI attempted esophageal dilatation however could not accomplish this. May be able to reattempt at a later date. Cough: some production. CXR ordered and reviewed. No acute process. Start Duoneb nebulizers x3 days Hypertension: Labile and poorly controlled. Both PCP and hotel operations manager working diligently on this as outpatient. We'll continue to attempt to control with this few meds possible. Blood pressure checks every 4 hours while awake. Hold orders placed on all antihypertensives. Hydralazine prn only now. Attempt to adjust clonidine for better control. Left shoulder pain: Voltaren gel monitor for improvement. Ranging and strengthening per OT. Modalities as needed. X-ray right shoulder with OA, NEG for Fx. Pain med increased. Asthma: Continue albuterol nebulizers when necessary. Insomnia: Not better with Ambien at outside hospital. Seems to be improved with trazodone, continue to monitor Anemia: Monitor and replace components as needed. Transfusion for hemoglobin less than 7. Improved Nutrition: Continue PEG feeds with bolus feeding. Dietitian consulted. Water flushes to avoid dehydration. Monitor labs on a frequent basis. PEG care per protocol. Z73.6 ADL dysfunction: OT will work on improving ability to perform ADLs (including assistive devices) to increase independence and decrease caregiver burden and improve functional transfers and mobility training. R26.2 Difficulty walking: PT will work on gait training and proper use of assistive devices and advance as appropriate to use of stairs and outside a mbulation on uneven surfaces. R26.81 Unsteadiness on feet: PT will work on improving static and dynamic sitting and standing balance as well as proper use of assistive devices to decrease risk of falls. R26.89 Abnormality of gait: PT will work to improve safety and efficiency of gait through neuromotor training and gait training along with instruction on proper use of assistive devices. M62.81 Muscle weakness: PT & OT will work on strengthening exercises to improve functional strength including mixture of closed and open kinetic chain exercises. R53.81 Debility: PT & OT will work on improving overall functional status to improve participation with ADLs, mobility and social involvement. R53.83 Fatigue: PT & OT will work on improving endurance through aerobic exercises and therapeutic activity while monitoring patients tolerance for activity and vital signs as needed. DVT ppx: Heparin, monitor closely for bleeding as she is on Plavix and aspirin as well Pain: Continue physical modalities in therapy and pain medications as needed to achieve functional pain control. Sleep: Monitor and address as needed. Bowel: Monitor and address as needed. Appetite: Monitor and address as needed. Discharge planning: Pending therapy progress and care plan meeting. Will continue discussion with therapy team, SW, patient and family. Look to discharge on May 25 Restrictions/ Precautions: Falls, aspiration (NPO) WB status: FWB Functional Hx: ADLs: Independent Cognition: Independent Mobility: No AD Barriers to Discharge: Decreased mobility and ability to perform self care, balance deficits, weakness Estimated Length of Stay: 14-21 days. Discharge Destination: Home alone with daughter to assist at discharge Orthotics: Patient is ambulating currently with a rolling walker and both Iraqi knee cage and [id number] AFO. Attempted walker without the AFO however she has increased loss of balance and buckling in the knee with this method. She is regaining slight function of dorsiflexion however this decreases greatly with distance. Discussed during team conference and feel that she would benefit from a custom posterior articulating AFO for the right foot. This will allow for improved ambulation, toe clearance and decreased loss of balance and improve her ability to regain functional mobility and independence. We will consult [employer] for manufacture of AFO to be delivered likely after discharge 05/25.
[2019-05-19] MEDS: traZODone 50 MG TAB PO SCH (21:29)
[2019-05-20] MEDS: GABAPENTIN 500 MG/10 ML ORAL LIQD FEEDTUBE SCH ×3 (05:31→22:23)
[2019-05-20] MEDS: HEPARIN 5,000 UNIT/1 ML VIAL SUB-Q SCH ×3 (05:32→22:23)
[2019-05-20 07:24] LABS: Calcium 10.8 mg/dL (8.4-10.2)
[2019-05-20] MEDS: carvediloL 25 MG TAB FEEDTUBE SCH ×3 (07:55→22:30)
[2019-05-20] MEDS: ASPIRIN 81 MG TAB CHEW FEEDTUBE SCH (07:55)
[2019-05-20] MEDS: CLOPIDOGREL 75 MG TAB FEEDTUBE SCH (07:56)
[2019-05-20] MEDS: POLYETHYLENE GLYCOL 3350 17 GM POWDER FEEDTUBE SCH (07:57)
[2019-05-20] MEDS: oxyCODONE /ACETAMINOPHEN 5-325MG TAB FEEDTUBE PRN ×4 (07:57→22:34)
[2019-05-20] MEDS: amLODIPine 10 MG TAB FEEDTUBE SCH (07:59)
[2019-05-20] MEDS: cloNIDine 0.1 MG TAB FEEDTUBE SCH ×2 (08:00→22:31)
--- NOTE | 2019-05-20 14:13 | Progress Note ---
Subjective Date of service: 05/20/19 Principal diagnosis: CVA Interval history: 53-year-old female who developed weakness in the right lower extremity and started having falls reported ED for further workup. 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 This is thought to possibly due to either cardioembolic versus endocarditis versus accelerated atherosclerotic disease secondary to radiation with a right ICA occlusion area echo showed ejection fraction 55% with grade 1 diastolic dysfunction and no PFO or valvular vegetations. Blood cultures showed no growth ruling out endocarditis. Patient was did not have atrial fibrillation in the hospital but has been referred to a compliance vice president as an outpatient for Holter monitoring for 30 days. She developed acute kidney injury which improved with IV fluids. Review of the roughly 120 pages of documents provided showed that she refused regular tube feedings even though she has a PEG. Apparently she was approved for clear liquids but she states that she still feels like she aspirates when attempting this. She was using commercial [id number]-[id number] ensure bottles for nutrition following that with water and apple juice. After di scussing with her the pitfalls with this and the determining that her primary issue with the tube feeds was the pump apparatus that was being used we have opted to start her on bolus feeding. We'll follow up with labs in the morning. She notes that she was taking Ambien for sleep however did not help that well in the hospital. We'll try trazodone and monitor for improvement. Also notes that her shoulder has been fairly sore but does not necessarily point to the shoulder joint itself more so on the bicep. Patient is participating in therapy and making reasonable progress. Better today with walking. Awaiting orthotics. Taking rest breaks as needed. Tolerating increased TF CVA: No neurologic changes noted. Patient appears flat at times however does not appear to have sarah depression. No issues with spasticity or bowel and bladder. +BM. Denies Abd pain,N/ V. Cont miralax and hold for loose stool Hypertension stabilizing. Clonidine being given at lower dose BID, being held occasionally based on parameters and blood pressure has been stable. BP has been pretty labile in this patient previously and I am attempting to regulate it on a regular schedule before she is discharged. Right shoulder pain improving. She is able to actively move it further than she is able to tolerate passive movement. Decreased ability to tolerate passive ROM. Previous fall before CVA. ROM improving daily. Continue to improve ROM, strengthening and taking Voltaren occasionally. Otherwise, denies MSK pain. Cough noted during exam with some production. Lungs sound clear. Denies dys pnea. Chest x-ray negative for acute process. monitor for improvement. Excessive drooling from radiation treatment, will avoid scopolamine. Renal function : creatinine slightly worse Tolerating increased water flushes, monitor. Maintain NPO for dysphagia. Tolerating feedings via bolus. All records, vitals, labs and medications were reviewed. No other issues per patient, nursing or therapy. Objective - Exam Narrative Exam: MUSCULOSKELETAL SPECIALTY EXAM CONSTITUTIONAL: Well developed, well nourished, appropriately groomed. RIGHT hand dominant. RESPIRATORY: Clear to auscultation bilaterally, no increased work of breathing. Cough noted with some production. CARDIOVASCULAR: Regular Rate/ Rhythm, no swelling, edema or tenderness in BUE or BLE. All extremities warm. GI: + bowel sounds, soft, NTTP, nondistended. PEG tube present. Excessive drooling due to radiation noted. INTEGUMENTARY: Normal, no lesion, rash, masses or bruising noted in extremities. MUSCULOSKELETAL: Point tenderness to palpation at the right anterior shoulder, otherwise BUE and BLE normal without defect, crepitus, subluxation, effusion, arthritic changes or TTP. RUE 4-/5 RLE 3/5 LUE / LLE 5/5 ROM decreased on right, within functional limit on the left Tone normal NEURO: CN II - XII grossly intact Sensation intact in all extremities without extinction. Coordination intact in BUE. No tremor noted in 4 extremities. Naming and repetition intact. Follows 2 step commands. 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 Balance appears reasonable. Gait slowed with decreased clearance of the right lower extremity even with the use of [place] knee cage and AFO. PSYCH: Alert, oriented x3, affect appears flat. Insight appears intact. - Constitutional Vitals: Vital Signs - 12hr 05/20/19 05/20/19 07:51 07:59 Temperature 36.6 C Pulse Rate 71 71 Respiratory 18 Rate Blood Pressure 103/57 Blood Pressure 103/57 [Right] O2 Sat by Pulse 100 Oximetry - Allied health notes Allied health notes reviewed: nursing, PT, OT FIMS assessment as documented by PT/OT/ST: Social interaction/Memory/Problem solving Memory FIM Score 5. Supervision (Needs cueing <10%, stressful/ unfamiliar situations.) Problem Solving FIM Score 5. Supervision (Needs cueing <10% to solve routine problems.) Locomotion- walk/wheelchair Ambulation Distance 25 - Labs CBC & Chem 7: 05/18/19 12:41 05/20/19 06:35 Labs: Laboratory Results - last 72 hr 05/18/19 05/18/19 05/20/19 07:22 12:41 06:35 WBC 3.7 L RBC 3.61 L Hgb 11.3 Hct 33.0 MCV 92 MCH 31 MCHC 34 RDW 14.5 Plt Count 215 Sodium 139 140 Potassium 4.7 4.8 Chloride 99.6 97.4 L Carbon Dioxide 21 L 24 Anion Gap 23 23 BUN 37 H 37 H Creatinine 1.3 H 1.5 H Estimated GFR 52 44 BUN/Creatinine Ratio 28 25 Glucose 103 H 112 H Calcium 10.1 10.8 H Assessment and Plan CVA dominant right luis m-paresis: Continue secondary stroke prevention (antithrombotic, statin (goal LDLsee less than 70), BP control (goal less than 140/90), glucose control (goal A1c less than 7), and lifestyle modification). Monitor for recurrent stroke or poststroke recrudescence. Continue neuromotor therapy as above. Family training when available. Monitor for post stroke depression, cognitive effects, seizure, dysfunction, aphasia, shoulder-hand syndrome, sensory deficits, spasticity, bowel/bladder deficits, sleep disturbance, vision deficits and DVT. Prognosis for recovery and secondary stroke prevention discussed. Follow-up with neurology at discharge. No driving until cleared by neurologist. Dysphagia: Continue PEG tube feedings. 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 We will defer retesting for swallowing. Patient notes that GI attempted esophageal dilatation however could not accomplish this. May be able to reattempt at a later date. Cough: some production. CXR ordered and reviewed. No acute process. Start Duoneb nebulizers x3 days Hypertension: Labile and poorly controlled. Both PCP and compliance vice president working diligently on this as outpatient. We'll continue to attempt to control with this few meds possible. Blood pressure checks every 4 hours while awake. Hold orders placed on all antihypertensives. Hydralazine prn only now. Attempt to adjust clonidine for better control. Left shoulder pain: Voltaren gel monitor for improvement. Ranging and strength ening per OT. Modalities as needed. X-ray right shoulder with OA, NEG for Fx. Pain med increased. Asthma: Continue albuterol nebulizers when necessary. Insomnia: Not better with Ambien at outside hospital. Seems to be improved with trazodone, continue to monitor Anemia: Monitor and replace components as needed. Transfusion for hemoglobin less than 7. Improved Nutrition: Continue PEG feeds with bolus feeding. Dietitian consulted. Water flushes to avoid dehydration. Monitor labs on a frequent basis. PEG care per protocol. Z73.6 ADL dysfunction: OT will work on improving ability to perform ADLs (including assistive devices) to increase independence and decrease caregiver burden and improve functional transfers and mobility training. R26.2 Difficulty walking: PT will work on gait training and proper use of assistive devices and advance as appropriate to use of stairs and outside ambulation on uneven surfaces. R26.81 Unsteadiness on feet: PT will work on improving static and dynamic sitting and standing balance as well as proper use of assistive devices to decrease risk of falls. R26.89 Abnormality of gait: PT will work to improve safety and efficiency of gait through neuromotor training and gait training along with instruction on proper use of assistive devices. M62.81 Muscle weakness: PT & OT will work on strengthening exercises to improve functional strength including mixture of closed and open kinetic chain exercises. R53.81 Debility: PT & OT will work on improving overall functional status to improve participation with ADLs, mobility and social involvement. R53.83 Fatigue: PT & OT will work on improving endurance through aerobic exercises and therapeutic activity while monitoring patients tolerance for activity and vital signs as needed. DVT ppx: Heparin, monitor closely for bleeding as she is on Plavix and aspirin as well Pain: Continue physical modalities in therapy and pain medications as needed to achieve functional pain control. Sleep: Monitor and address as needed. Bowel: Monitor and address as needed. Appetite: Monitor and address as needed. Discharge planning: Pending therapy progress and care plan meeting. Will continue discussion with therapy team, SW, patient and family. Look to discharge on May 25 Restrictions/ Precautions: Falls, aspiration (NPO) WB status: FWB Functional Hx: ADLs: Independent Cognition: Independent Mobility: No AD Barriers to Discharge: Decreased mobility and ability to perform self care, b alance deficits, weakness Estimated Length of Stay: 14-21 days. Discharge Destination: Home alone with daughter to assist at discharge Orthotics: Patient is ambulating currently with a rolling walker and both [place] knee cage and [id number] AFO. Attempted walker without the AFO however she has increased loss of balance and buckling in the knee with this method. She is regaining slight function of dorsiflexion however this decreases greatly with distance. Discussed during team conference and feel that she would benefit from a custom posterior articulating AFO for the right foot. This will allow for improved ambulation, toe clearance and decreased loss of balance and improve her ability to regain functional mobility and independence. We will consult [facility] [employer] for manufacture of AFO to be delivered likely after discharge 05/25/2019.
[2019-05-20] MEDS: traZODone 50 MG TAB PO SCH (22:22)
[2019-05-21] MEDS: GABAPENTIN 500 MG/10 ML ORAL LIQD FEEDTUBE SCH ×3 (06:18→23:11)
[2019-05-21] MEDS: HEPARIN 5,000 UNIT/1 ML VIAL SUB-Q SCH ×3 (06:18→23:10)
[2019-05-21] MEDS: amLODIPine 10 MG TAB FEEDTUBE SCH (08:30)
[2019-05-21] MEDS: carvediloL 25 MG TAB FEEDTUBE SCH ×2 (08:30→23:09)
[2019-05-21] MEDS: cloNIDine 0.1 MG TAB FEEDTUBE SCH ×2 (08:30→23:12)
[2019-05-21] MEDS: oxyCODONE /ACETAMINOPHEN 5-325MG TAB FEEDTUBE PRN ×4 (10:51→23:09)
[2019-05-21] MEDS: POLYETHYLENE GLYCOL 3350 17 GM POWDER FEEDTUBE SCH (10:51)
[2019-05-21] MEDS: ASPIRIN 81 MG TAB CHEW FEEDTUBE SCH (10:51)
[2019-05-21] MEDS: CLOPIDOGREL 75 MG TAB FEEDTUBE SCH (10:52)
[2019-05-21] MEDS: traZODone 50 MG TAB PO SCH (23:11)
[2019-05-22] MEDS: GABAPENTIN 500 MG/10 ML ORAL LIQD FEEDTUBE SCH ×3 (06:03→22:43)
[2019-05-22] MEDS: oxyCODONE /ACETAMINOPHEN 5-325MG TAB FEEDTUBE PRN ×3 (06:03→22:46)
[2019-05-22] MEDS: HEPARIN 5,000 UNIT/1 ML VIAL SUB-Q SCH ×3 (06:04→22:43)
[2019-05-22] MEDS: amLODIPine 10 MG TAB FEEDTUBE SCH (09:42)
[2019-05-22] MEDS: ASPIRIN 81 MG TAB CHEW FEEDTUBE SCH (09:43)
[2019-05-22] MEDS: carvediloL 25 MG TAB FEEDTUBE SCH ×2 (09:43→22:44)
[2019-05-22] MEDS: CLOPIDOGREL 75 MG TAB FEEDTUBE SCH (09:43)
[2019-05-22] MEDS: cloNIDine 0.1 MG TAB FEEDTUBE SCH ×2 (09:43→22:45)
[2019-05-22] MEDS: POLYETHYLENE GLYCOL 3350 17 GM POWDER FEEDTUBE SCH (09:43)
[2019-05-22] MEDS: traZODone 50 MG TAB PO SCH (22:43)
[2019-05-23] MEDS: HEPARIN 5,000 UNIT/1 ML VIAL SUB-Q SCH ×3 (05:57→23:52)
[2019-05-23] MEDS: oxyCODONE /ACETAMINOPHEN 5-325MG TAB FEEDTUBE PRN ×3 (05:58→23:50)
[2019-05-23] MEDS: GABAPENTIN 500 MG/10 ML ORAL LIQD FEEDTUBE SCH ×3 (05:59→23:55)
[2019-05-23] MEDS: carvediloL 25 MG TAB FEEDTUBE SCH ×2 (07:56→22:51)
[2019-05-23] MEDS: ASPIRIN 81 MG TAB CHEW FEEDTUBE SCH (07:56)
[2019-05-23] MEDS: CLOPIDOGREL 75 MG TAB FEEDTUBE SCH (07:56)
[2019-05-23] MEDS: POLYETHYLENE GLYCOL 3350 17 GM POWDER FEEDTUBE SCH (07:56)
[2019-05-23] MEDS: amLODIPine 10 MG TAB FEEDTUBE SCH (07:56)
[2019-05-23] MEDS: cloNIDine 0.1 MG TAB FEEDTUBE SCH ×2 (08:08→22:50)
--- NOTE | 2019-05-23 15:04 | Progress Note ---
Subjective Date of service: 05/23/19 Principal diagnosis: CVA Interval history: 53-year-old female who developed weakness in the right lower extremity and started having falls reported ED for further workup. 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 This is thought to possibly due to either cardioembolic versus endocarditis versus accelerated atherosclerotic disease secondary to radiation with a right ICA occlusion area echo showed ejection fraction 55% with grade 1 diastolic dysfunction and no PFO or valvular vegetations. Blood cultures showed no growth ruling out endocarditis. Patient was did not have atrial fibrillation in the hospital but has been referred to a automotive title clerk as an outpatient for Holter monitoring for 30 days. She developed acute kidney injury which improved with IV fluids. Review of the roughly 120 pages of documents provided showed that she refused regular tube feedings even though she has a PEG. Apparently she was approved for clear liquids but she states that she still feels like she aspirates when attempting this. She was using commercial [id number] ensure bottles for nutrition following that with water and apple juice. After di scussing with her the pitfalls with this and the determining that her primary issue with the tube feeds was the pump apparatus that was being used we have opted to start her on bolus feeding. We'll follow up with labs in the morning. She notes that she was taking Ambien for sleep however did not help that well in the hospital. We'll try trazodone and monitor for improvement. Also notes that her shoulder has been fairly sore but does not necessarily point to the shoulder joint itself more so on the bicep. Patient is participating in therapy and making reasonable progress. Better today with walking. Awaiting orthotics. Taking rest breaks as needed. Tolerating increased TF CVA: No neurologic changes noted. Patient appears flat at times however does not appear to have sarah depression. No issues with spasticity or bowel and bladder. Making improvement with mobility. +BM. Denies Abd pain. Had N/V this AM x 1 episode. Monitor N/V. Cont miralax and hold for loose stool Hypertension stabilizing. Clonidine being given at lower dose BID, being held occasionally based on parameters and blood pressure has been stable. Appears she is being dosed clonidine once daily on average. BP has been pretty labile in this patient previously and I am attempting to regulate it on a regular schedule before she is discharged. Right shoulder pain improving. She is able to actively move it further than she is able to tolerate passive movement. Decreased ability to tolerate passive ROM. Previous fall before CVA. ROM improving daily. Continue to improve ROM, strengthening and taking Voltaren occasionally. Otherwise, denies MSK pain. Excessive drooling from radiation treatment, will avoid scopolamine. Renal function : recheck labs in AM. Seems at baseline. Tolerating increased water flushes, monitor. Maintain NPO for dysphagia. Tolerating feedings via bolus. All records, vitals, labs and medications were reviewed. No other issues per patient, nursing or therapy. Objective - Exam Narrative Exam: MUSCULOSKELETAL SPECIALTY EXAM CONSTITUTIONAL: Well developed, well nourished, appropriately groomed. RIGHT hand dominant. RESPIRATORY: Clear to auscultation bilaterally, no increased work of breathing. CARDIOVASCULAR: Regular Rate/ Rhythm, no swelling, edema or tenderness in BUE or BLE. All extremities warm. GI: + bowel sounds, soft, NTTP, nondistended. PEG tube present. Excessive drooling due to radiation noted. INTEGUMENTARY: Normal, no lesion, rash, masses or bruising noted in extremities. MUSCULOSKELETAL: Point tenderness to palpation at the right anterior shoulder, otherwise BUE and BLE normal without defect, crepitus, subluxation, effusion, arthritic changes or TTP. RUE 4-/5 RLE 3/5 LUE / LLE 5/5 ROM decreased on right, within functional limit on the left Tone normal NEURO: CN II - XII grossly intact Sensation intact in all extremities without extinction. Coordination intact in BUE. No tremor noted in 4 extremities. Naming and repetition intact. Follows 2 step commands. 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 Balance appears reasonable. Gait slowed with decreased clearance of the right lower extremity even with the use of [place]orean knee cage and AFO. PSYCH: Alert, oriented x3, affect appears flat. Insight appears intact. - Constitutional Vitals: Vital Signs - 12hr 05/23/19 05/23/19 05/23/19 07:26 07:56 08:08 Temperature 36.9 C Pulse Rate 77 Respiratory 18 Rate Blood Pressure 122/69 122/69 122/69 O2 Sat by Pulse 99 Oximetry - Allied health notes Allied health notes reviewed: nursing, PT, OT FIMS assessment as documented by PT/OT/ST: Social interaction/Memory/Problem solving Memory FIM Score 7. Complete [place] (Remembers people and routines.) Problem Solving FIM Score 6. Mod. [place] (Mild difficulty or needs more time w/ complex.) Locomotion- walk/wheelchair Ambulation Distance 25 - Labs CBC & Chem 7: 05/24/19 07:03 05/24/19 07:03 Assessment and Plan CVA dominant right luis m-paresis: Continue secondary stroke prevention (antithrombotic, statin (goal LDLsee less than 70), BP control (goal less than 140/90), glucose control (goal A1c less than 7), and lifestyle modification). Monitor for recurrent stroke or poststroke recrudescence. Continue neuromotor therapy as above. Family training when available. Monitor for post stroke depression, cognitive effects, seizure, dysfunction, aphasia, shoulder-hand syndrome, sensory deficits, spasticity, bowel/bladder deficits, sleep disturbance, vision deficits and DVT. Prognosis for recovery and secondary stroke prevention discussed. Follow-up with neurology at discharge. No driving until cleared by neurologist. Dysphagia: Continue PEG tube feedings. 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 We will defer retesting for swallowing. Patient notes that GI attempted esophageal dilatation however could not accomplish this. May be able to reattempt at a later date. Cough: some production. CXR ordered and reviewed. No acute process. Hypertension: Labile and poorly controlled. Both PCP and automotive title clerk working diligently on this as outpatient. We'll continue to attempt to control with this few meds possible. Blood pressure checks every 4 hours while awake. Hold orders placed on all antihypertensives. Hydralazine prn only now. Attempt to adjust clonidine for better control. Left shoulder pain: Voltaren gel monitor for improvement. Ranging and streng thening per OT. Modalities as needed. X-ray right shoulder with OA, NEG for Fx. Pain med increased. Monitor, improving ROM Asthma: Continue albuterol nebulizers when necessary. Insomnia: Not better with Ambien at outside hospital. Seems to be improved with trazodone, continue to monitor Anemia: Monitor and replace components as needed. Transfusion for hemoglobin less than 7. Improved Nutrition: Continue PEG feeds with bolus feeding. Dietitian consulted. Water flushes to avoid dehydration. Monitor labs on a frequent basis. PEG care per protocol. Z73.6 ADL dysfunction: OT will work on improving ability to perform ADLs (including assistive devices) to increase independence and decrease caregiver burden and improve functional transfers and mobility training. R26.2 Difficulty walking: PT will work on gait training and proper use of assistive devices and advance as appropriate to use of stairs and outside ambulation on uneven surfaces. R26.81 Unsteadiness on feet: PT will work on improving static and dynamic sitting and standing balance as well as proper use of assistive devices to decrease risk of falls. R26.89 Abnormality of gait: PT will work to improve safety and efficiency of gait through neuromotor training and gait training along with instruction on proper use of assistive devices. M62.81 Muscle weakness: PT & OT will work on strengthening exercises to improve functional strength including mixture of closed and open kinetic chain exercises. R53.81 Debility: PT & OT will work on improving overall functional status to improve participation with ADLs, mobility and social involvement. R53.83 Fatigue: PT & OT will work on improving endurance through aerobic ex ercises and therapeutic activity while monitoring patients tolerance for activity and vital signs as needed. DVT ppx: Heparin, monitor closely for bleeding as she is on Plavix and aspirin as well Pain: Continue physical modalities in therapy and pain medications as needed to achieve functional pain control. Sleep: Monitor and address as needed. Bowel: Monitor and address as needed. Appetite: Monitor and address as needed. Discharge planning: Pending therapy progress and care plan meeting. Will continue discussion with therapy team, SW, patient and family. Look to discharge on May 25 Restrictions/ Precautions: Falls, aspiration (NPO) WB status: FWB Functional Hx: ADLs: Independent Cognition: Independent Mobility: No AD Barriers to Discharge: Decreased mobility and ability to perform self care, balance deficits, weakness Estimated Length of Stay: 14-21 days. Discharge Destination: Home alone with daughter to assist at discharge Orthotics: Patient is ambulating currently with a rolling walker and both Ecuadorean knee cage and [id number] AFO. Attempted walker without the AFO however she has increased loss of balance and buckling in the knee with this method. She is regaining slight function of dorsiflexion however this decreases greatly with distance. Discussed during team conference and feel that she would benefit from a custom posterior articulating AFO for the right foot. This will allow for improved ambulation, toe clearance and decreased loss of balance and improve her ability to regain functional mobility and independence. We will consult [facility] orthotics for manufacture of AFO to be delivered likely after discharge 05/25/2019.
[2019-05-23] MEDS: traZODone 50 MG TAB PO SCH (23:57)
[2019-05-24] MEDS: GABAPENTIN 500 MG/10 ML ORAL LIQD FEEDTUBE SCH ×3 (07:10→22:00)
[2019-05-24] MEDS: HEPARIN 5,000 UNIT/1 ML VIAL SUB-Q SCH ×3 (07:10→22:00)
[2019-05-24 07:51] LABS: Hematocrit 33.8 % (30.3-42.9); Hemoglobin 11.5 gm/dl (10.1-14.3); Mean Corpuscular HGB Conc 34 % (30-34); Mean Corpuscular Volume 93 fl (79-97); Platelet Count 240 K/mm3 (140-440); Red Blood Count 3.65 M/mm3 (3.65-5.03); Red Cell Distribution Width 14.6 % (13.2-15.2)
[2019-05-24 08:15] LABS: Calcium 10.7 mg/dL (8.4-10.2)
[2019-05-24] MEDS: POLYETHYLENE GLYCOL 3350 17 GM POWDER FEEDTUBE SCH (10:00)
[2019-05-24] MEDS: carvediloL 25 MG TAB FEEDTUBE SCH ×2 (10:01→22:03)
[2019-05-24] MEDS: ASPIRIN 81 MG TAB CHEW FEEDTUBE SCH (10:01)
[2019-05-24] MEDS: CLOPIDOGREL 75 MG TAB FEEDTUBE SCH (10:01)
[2019-05-24] MEDS: cloNIDine 0.1 MG TAB FEEDTUBE SCH ×2 (10:02→22:04)
[2019-05-24] MEDS: oxyCODONE /ACETAMINOPHEN 5-325MG TAB FEEDTUBE PRN ×2 (10:02→22:03)
[2019-05-24] MEDS: amLODIPine 10 MG TAB FEEDTUBE SCH (10:02)
--- NOTE | 2019-05-24 15:26 | Progress Note ---
Subjective Date of service: 05/24/19 Principal diagnosis: CVA Interval history: 53-year-old female who developed weakness in the right lower extremity and started having falls reported ED for further workup. 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 This is thought to possibly due to either cardioembolic versus endocarditis versus accelerated atherosclerotic disease secondary to radiation with a right ICA occlusion area echo showed ejection fraction 55% with grade 1 diastolic dysfunction and no PFO or valvular vegetations. Blood cultures showed no growth ruling out endocarditis. Patient was did not have atrial fibrillation in the hospital but has been referred to a director social service as an outpatient for Holter monitoring for 30 days. She developed acute kidney injury which improved with IV fluids. Review of the roughly 120 pages of documents provided showed that she refused regular tube feedings even though she has a PEG. Apparently she was approved for clear liquids but she states that she still feels like she aspirates when attempting this. She was using commercial [id number] ensure bottles for nutrition following that with water and apple juice. After di scussing with her the pitfalls with this and the determining that her primary issue with the tube feeds was the pump apparatus that was being used we have opted to start her on bolus feeding. We'll follow up with labs in the morning. She notes that she was taking Ambien for sleep however did not help that well in the hospital. We'll try trazodone and monitor for improvement. Also notes that her shoulder has been fairly sore but does not necessarily point to the shoulder joint itself more so on the bicep. Patient is participating in therapy and making reasonable progress. Better today with walking. Taking rest breaks as needed. CVA: No neurologic changes noted. Patient appears flat at times however does not appear to have sarah depression. No issues with spasticity or bowel and bladder. Making improvement with mobility. +BM. Denies Abd pain. Had N this AM , no V. Monitor N/V. Cont miralax and hold for loose stool Hypertension stabilizing. Clonidine being given at lower dose BID, being held occasionally based on parameters and blood pressure has been stable. Appears she is being dosed clonidine once daily on average. BP has been pretty labile in this patient previously and I am attempting to regulate it on a regular schedule before she is discharged. Right shoulder pain improving. She is able to actively move it further than she is able to tolerate passive movement. Decreased ability to tolerate passive ROM. Previous fall before CVA. ROM improving daily. Continue to improve ROM, strengthening and taking Voltaren occasionally. Otherwise, denies MSK pain. Excessive drooling from radiation treatment, will avoid scopolamine. Renal function : improved. Seems at baseline. Tolerating increased water flushes, monitor. Maintain NPO for dysphagia. Tolerating feedings via bolus. Wheelchair justification At this time patient is unsafe to ambulate independently. She is able to ambulate with assistance and a rolling walker. She will discharge home on with intermittent supervision via her daughter. For her independence, mobility, and safety it is advisable that she utilize a wheelchair in the short- term until her ability to ambulate independently and safely with a rolling walker is achieved. The distance that she is currently walking does not negate the fact that she has safety issues and will be alone at home at most times. In order to avoid any falls and resultant injuries a wheelchair for a short-term rental is medically necessary and will be utilized independently in her home to allow her to achieve independence in ADLs and functional mobility until such time that she is able to independently ambulate safely. All records, vitals, labs and medications were reviewed. No other issues per patient, nursing or therapy. Objective - Exam Narrative Exam: MUSCULOSKELETAL SPECIALTY EXAM CONSTITUTIONAL: Well developed, well nourished, appropriately groomed. RIGHT hand dominant. RESPIRATORY: Clear to auscultation bilaterally, no increased work of breathing. CARDIOVASCULAR: Regular Rate/ Rhythm, no swelling, edema or tenderness in BUE or BLE. All extremities warm. GI: + bowel sounds, soft, NTTP, nondistended. PEG tube present. Excessive drooling due to radiation noted. INTEGUMENTARY: Normal, no lesion, rash, masses or bruising noted in extremities. MUSCULOSKELETAL: Point tenderness to palpation at the right anterior shoulder, otherwise BUE and BLE normal without defect, crepitus, subluxation, effusion, arthritic changes or TTP. RUE 4-/5 RLE 3/5 LUE / LLE 5/5 ROM decreased on right, within functional limit on the left Tone normal NEURO: CN II - XII grossly intact Sensation intact in all extremities without extinction. Coordination intact in BUE. No tremor noted in 4 extremities. Naming and repetition intact. Follows 2 step commands. 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 Balance appears reasonable. Gait slowed with decreased clearance of the right lower extremity even with the use of [place] knee cage and AFO. PSYCH: Alert, oriented x3, affect appears flat. Insight appears intact. - Constitutional Vitals: Vital Signs - 12hr 05/24/19 07:23 Temperature 36.6 C Pulse Rate 68 Respiratory 18 Rate Blood Pressure 124/72 O2 Sat by Pulse 100 Oximetry - Allied health notes Allied health notes reviewed: nursing, PT, OT FIMS assessment as documented by PT/OT/ST: Social interaction/Memory/Problem solving Memory FIM Score 5. Supervision (Needs cueing <10%, stressful/ unfamiliar situations.) Problem Solving FIM Score 6. Mod. [place] (Mild difficulty or needs more time w/ complex.) Locomotion- walk/wheelchair Ambulation Distance 25 - Labs CBC & Chem 7: 05/24/19 07:03 05/24/19 07:03 Labs: Laboratory Results - last 72 hr 05/24/19 05/24/19 07:03 07:03 WBC 2.7 L RBC 3.65 Hgb 11.5 Hct 33.8 MCV 93 MCH 32 MCHC 34 RDW 14.6 Plt Count 240 Sodium 137 Potassium 4.2 Chloride 97.5 L Carbon Dioxide 23 Anion Gap 21 BUN 35 H Creatinine 1.4 H Estimated GFR 48 BUN/Creatinine Ratio 25 Glucose 143 H Calcium 10.7 H Assessment and Plan CVA dominant right luis m-paresis: Continue secondary stroke prevention (antithrombotic, statin (goal LDLsee less than 70), BP control (goal less than 140/90), glucose control (goal A1c less than 7), and lifestyle modification). Monitor for recurrent stroke or poststroke recrudescence. Continue neuromotor therapy as above. Family training when available. Monitor for post stroke depression, cognitive effects, seizure, dysfunction, aphasia, shoulder-hand syndrome, sensory deficits, spasticity, bowel/bladder deficits, sleep disturbance, vision deficits and DVT. Prognosis for recovery and secondary stroke prevention discussed. Follow-up with neurology at discharge. No driving until cleared by neurologist. Dysphagia: Continue PEG tube feedings. 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 We will defer retesting for swallowing. Patient notes that GI attempted esophageal dilatation however could not accomplish this. May be able to reattempt at a later date. Cough: some production. CXR ordered and reviewed. No acute process. Hypertension: Labile and poorly controlled. Both PCP and director social service working diligently on this as outpatient. We'll continue to attempt to control with this few meds possible. Blood pressure checks every 4 hours while awake. Hold orders placed on all antihypertensives. Hydralazine prn only now. Attempt to adjust clonidine for better control. Left shoulder pain: Voltaren gel monitor for improvement. Ranging and strengthening per OT. Modalities as needed. X-ray right shoulder with OA, NEG for Fx. Pain med increased. Monitor, improving ROM Asthma: Continue albuterol nebulizers when necessary. Insomnia: Not better with Ambien at outside hospital. Seems to be improved with trazodone, continue to monitor Anemia: Monitor and replace components as needed. Transfusion for hemoglobin less than 7. Improved Nutrition: Continue PEG feeds with bolus feeding. Dietitian consulted. Water flushes to avoid dehydration. Monitor labs on a frequent basis. PEG care per protocol. Z73.6 ADL dysfunction: OT will work on improving ability to perform ADLs (including assistive devices) to increase independence and decrease caregiver burden and improve functional transfers and mobility training. R26.2 Difficulty walking: PT will work on gait training and proper use of assistive devices and advance as appropriate to use of stairs and outside ambulation on uneven surfaces. R26.81 Unsteadiness on feet: PT will work on improving static and dynamic sitting and standing balance as well as proper use of assistive devices to decrease risk of falls. R26.89 Abnormality of gait: PT will work to improve safety and efficiency of gait through neuromotor training and gait training along with instruction on proper use of assistive devices. M62.81 Muscle weakness: PT & OT will work on strengthening exercises to improve functional strength including mixture of closed and open kinetic chain exercises. R53.81 Debility: PT & OT will work on improving overall functional status to improve participation with ADLs, mobility and social involvement. R53.83 Fatigue: PT & OT will work on improving endurance through aerobic exerci ses and therapeutic activity while monitoring patients tolerance for activity and vital signs as needed. DVT ppx: Heparin, monitor closely for bleeding as she is on Plavix and aspirin as well Pain: Continue physical modalities in therapy and pain medications as needed to achieve functional pain control. Sleep: Monitor and address as needed. Bowel: Monitor and address as needed. Appetite: Monitor and address as needed. Discharge planning: Pending therapy progress and care plan meeting. Will continue discussion with therapy team, SW, patient and family. Look to discharge on May 26 Restrictions/ Precautions: Falls, aspiration (NPO) WB status: FWB Functional Hx: ADLs: Independent Cognition: Independent Mobility: No AD Barriers to Discharge: Decreased mobility and ability to perform self care, balance deficits, weakness Estimated Length of Stay: 14-21 days. Discharge Destination: Home alone with daughter to assist at discharge Orthotics: Patient is ambulating currently with a rolling walker and both [place]une[place] knee cage and [id number] AFO. Attempted walker without the AFO however she has increased loss of balance and buckling in the knee with this method. She is regaining slight function of dorsiflexion however this decreases greatly with distance. Discussed during team conference and feel that she would benefit from a custom posterior articulating AFO for the right foot. This will allow for improved ambulation, toe clearance and decreased loss of balance and improve her ability to regain functional mobility and independence. We will consult [employer] orthotics for manufacture of AFO to be delivered likely after discharge 05/25/2019.
[2019-05-24] MEDS: traZODone 50 MG TAB PO SCH (22:01)
[2019-05-25] MEDS: oxyCODONE /ACETAMINOPHEN 5-325MG TAB FEEDTUBE PRN ×2 (06:03→22:25)
[2019-05-25] MEDS: GABAPENTIN 500 MG/10 ML ORAL LIQD FEEDTUBE SCH ×3 (06:03→22:26)
[2019-05-25] MEDS: HEPARIN 5,000 UNIT/1 ML VIAL SUB-Q SCH ×3 (06:04→22:27)
[2019-05-25] MEDS: POLYETHYLENE GLYCOL 3350 17 GM POWDER FEEDTUBE SCH (08:03)
[2019-05-25] MEDS: ASPIRIN 81 MG TAB CHEW FEEDTUBE SCH (08:03)
[2019-05-25] MEDS: CLOPIDOGREL 75 MG TAB FEEDTUBE SCH (08:04)
[2019-05-25] MEDS: amLODIPine 10 MG TAB FEEDTUBE SCH (08:05)
[2019-05-25] MEDS: cloNIDine 0.1 MG TAB FEEDTUBE SCH (08:05)
[2019-05-25] MEDS: carvediloL 25 MG TAB FEEDTUBE SCH ×2 (08:05→22:32)
--- NOTE | 2019-05-25 15:38 | Progress Note ---
Subjective Date of service: 05/25/19 Principal diagnosis: CVA Interval history: 53-year-old female who developed weakness in the right lower extremity and started having falls reported ED for further workup. 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 This is thought to possibly due to either cardioembolic versus endocarditis versus accelerated atherosclerotic disease secondary to radiation with a right ICA occlusion area echo showed ejection fraction 55% with grade 1 diastolic dysfunction and no PFO or valvular vegetations. Blood cultures showed no growth ruling out endocarditis. Patient was did not have atrial fibrillation in the hospital but has been referred to a jewel bearing broacher as an outpatient for Holter monitoring for 30 days. She developed acute kidney injury which improved with IV fluids. Review of the roughly 120 pages of documents provided showed that she refused regular tube feedings even though she has a PEG. Apparently she was approved for clear liquids but she states that she still feels like she aspirates when attempting this. She was using commercial [id number] ensure bottles for nutrition following that with water and apple juice. After di scussing with her the pitfalls with this and the determining that her primary issue with the tube feeds was the pump apparatus that was being used we have opted to start her on bolus feeding. We'll follow up with labs in the morning. She notes that she was taking Ambien for sleep however did not help that well in the hospital. We'll try trazodone and monitor for improvement. Also notes that her shoulder has been fairly sore but does not necessarily point to the shoulder joint itself more so on the bicep. Patient is participating in therapy and making reasonable progress. Better today with walking. Taking rest breaks as needed. CVA: No neurologic changes noted. Patient appears flat at times however does not appear to have sarah depression. No issues with spasticity or bowel and bladder. Making improvement with mobility. +BM. Denies Abd pain. No N/V today. Monitor N/V. Cont miralax and hold for loose stool Hypertension stabilizing. DC Clonidine. BP has been fairly stable with occasional doses. Monitor. Right shoulder pain improving. She is able to actively move it further than she is able to tolerate passive movement. Decreased ability to tolerate passive ROM. Previous fall before CVA. ROM improving daily. Continue to improve ROM, strengthening and taking Voltaren occasionally. Otherwise, denies MSK pain. Excessive drooling from radiation treatment, will avoid scopolamine. Will need Hem/Onc f/u after discharge Renal function : improved. Seems at baseline. Tolerating increased water flushes, monitor. Maintain NPO for dysphagia. Tolerating feedings via bolus. Discussed with the patient the issue she had with tube feeding prior to this hospitalization. States that she was using ensure as we discussed previously. She thinks that she was taking Isosource previously which was approved by her insurance company however she did not tolerate this and had severe nausea and vomiting every time that she utilized the formula. Due to this she started using [id number] ensure as a replacement. We discussed that that is not a proper tube feeding replacement. She is tolerating Jevity well and due to her previous severe nausea and vomiting to Isosource we will discharge her with Jevity. Wheelchair justification At this time patient is unsafe to ambulate independently. She is able to ambulate with assistance and a rolling walker. She will discharge home on with intermittent supervision via her daughter. For her independence, mobility, and safety it is advisable that she utilize a wheelchair in the short- term until her ability to ambulate independently and safely with a rolling walker is achieved. The distance that she is currently walking does not negate the fact that she has safety issues and will be alone at home at most times. In order to avoid any falls and resultant injuries a wheelchair for a short-term rental is medically necessary and will be utilized independently in her home to allow her to achieve independence in ADLs and functional mobility until such time that she is able to independently ambulate safely. All records, vitals, labs and medications were reviewed. No other issues per pa tient, nursing or therapy. Objective - Exam Narrative Exam: MUSCULOSKELETAL SPECIALTY EXAM CONSTITUTIONAL: Well developed, well nourished, appropriately groomed. RIGHT hand dominant. RESPIRATORY: Clear to auscultation bilaterally, no increased work of breathing. CARDIOVASCULAR: Regular Rate/ Rhythm, no swelling, edema or tenderness in BUE or BLE. All extremities warm. GI: + bowel sounds, soft, NTTP, nondistended. PEG tube present. Excessive drooling due to radiation noted. INTEGUMENTARY: Normal, no lesion, rash, masses or bruising noted in extremities. MUSCULOSKELETAL: Point tenderness to palpation at the right anterior shoulder, otherwise BUE and BLE normal without defect, crepitus, subluxation, effusion, arthritic changes or TTP. RUE 4-/5 RLE 3/5 LUE / LLE 5/5 ROM decreased on right, within functional limit on the left Tone normal NEURO: CN II - XII grossly intact Sensation intact in all extremities without extinction. Coordination intact in BUE. No tremor noted in 4 extremities. Naming and repetition intact. Follows 2 step commands. 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 Balance appears reasonable. Gait slowed with decreased clearance of the right lower extremity even with the use of [place] knee cage and AFO, improving but still a high fall risk. Will need short term rental for w/c (2-3months likely) until she has improved her balance and ability to ambulate safely. PSYCH: Alert, oriented x3, affect appears flat. Insight appears intact. - Constitutional Vitals: Vital Signs - 12hr 05/25/19 05/25/19 05/25/19 03:53 07:21 08:05 Temperature 36.8 C 36.8 C Pulse Rate 73 72 72 Respiratory 18 18 Rate Blood Pressure 96/57 104/57 104/57 O2 Sat by Pulse 100 100 Oximetry - Allied health notes Allied health notes reviewed: nursing, PT, OT FIMS assessment as documented by PT/OT/ST: Social interaction/Memory/Problem solving Memory FIM Score 6. Modified [place](Mild difficulty remembering people/routines.) Problem Solving FIM Score 6. Mod. [place] (Mild difficulty or needs more time w/ complex.) Locomotion- walk/wheelchair Ambulation Distance 25 - Labs CBC & Chem 7: 05/24/19 07:03 05/24/19 07:03 Labs: Laboratory Results - last 72 hr 05/24/19 05/24/19 07:03 07:03 WBC 2.7 L RBC 3.65 Hgb 11.5 Hct 33.8 MCV 93 MCH 32 MCHC 34 RDW 14.6 Plt Count 240 Sodium 137 Potassium 4.2 Chloride 97.5 L Carbon Dioxide 23 Anion Gap 21 BUN 35 H Creatinine 1.4 H Estimated GFR 48 BUN/Creatinine Ratio 25 Glucose 143 H Calcium 10.7 H Assessment and Plan CVA dominant right luis m-paresis: Continue secondary stroke prevention (anti thrombotic, statin (goal LDLsee less than 70), BP control (goal less than 140/90), glucose control (goal A1c less than 7), and lifestyle modification). Monitor for recurrent stroke or poststroke recrudescence. Continue neuromotor therapy as above. Family training when available. Monitor for post stroke depression, cognitive effects, seizure, dysfunction, aphasia, shoulder-hand syndrome, sensory deficits, spasticity, bowel/bladder deficits, sleep disturbance, vision deficits and DVT. Prognosis for recovery and secondary stroke prevention discussed. Follow-up with neurology at discharge. No driving until cleared by neurologist. Dysphagia: Continue PEG tube feedings. 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 We will defer retesting for swallowing. Patient notes that GI attempted esophageal dilatation however could not accomplish this. May be able to reattempt at a later date. Cough: some production. CXR ordered and reviewed. No acute process. Hypertension: Labile and poorly controlled. Both PCP and jewel bearing broacher working diligently on this as outpatient. We'll continue to attempt to control with this few meds possible. Blood pressure checks every 4 hours while awake. Hold orders placed on all antihypertensives. Hydralazine prn only now. Fairly well controlled without clonidine currently. Left shoulder pain: Voltaren gel monitor for improvement. Ranging and strengthening per OT. Modalities as needed. X-ray right shoulder with OA, NEG for Fx. Pain med increased. Monitor, improving ROM Asthma: Continue albuterol nebulizers when necessary. Insomnia: Not better with Ambien at outside hospital. Seems to be improved with trazodone, continue to monitor Anemia: Monitor and replace components as needed. Transfusion for hemoglobin less than 7. Improved Nutrition: Continue PEG feeds with bolus feeding. Dietitian consulted. Water flushes to avoid dehydration. Monitor labs on a frequent basis. PEG care per protocol. Z73.6 ADL dysfunction: OT will work on improving ability to perform ADLs (inclu ding assistive devices) to increase independence and decrease caregiver burden and improve functional transfers and mobility training. R26.2 Difficulty walking: PT will work on gait training and proper use of assistive devices and advance as appropriate to use of stairs and outside ambulation on uneven surfaces. R26.81 Unsteadiness on feet: PT will work on improving static and dynamic sitting and standing balance as well as proper use of assistive devices to decrease risk of falls. R26.89 Abnormality of gait: PT will work to improve safety and efficiency of gait through neuromotor training and gait training along with instruction on proper use of assistive devices. M62.81 Muscle weakness: PT & OT will work on strengthening exercises to improve functional strength including mixture of closed and open kinetic chain exercises. R53.81 Debility: PT & OT will work on improving overall functional status to improve participation with ADLs, mobility and social involvement. R53.83 Fatigue: PT & OT will work on improving endurance through aerobic exercises and therapeutic activity while monitoring patients tolerance for activity and vital signs as needed. DVT ppx: Heparin, monitor closely for bleeding as she is on Plavix and aspirin as well Pain: Continue physical modalities in therapy and pain medications as needed to achieve functional pain control. Sleep: Monitor and address as needed. Bowel: Monitor and address as needed. Appetite: Monitor and address as needed. Discharge planning: Pending therapy progress and care plan meeting. Will continue discussion with therapy team, SW, patient and family. Look to discharge on May 26 Restrictions/ Precautions: Falls, aspiration (NPO) WB status: FWB Functional Hx: ADLs: Independent Cognition: Independent Mobility: No AD Barriers to Discharge: Decreased mobility and ability to perform self care, balance deficits, weakness Estimated Length of Stay: 14-21 days. Discharge Destination: Home alone with daughter to assist at discharge Orthotics: Patient is ambulating currently with a rolling walker and both [place] knee cage and [id number]-[id number] AFO. Attempted walker without the AFO however she has increased loss of balance and buckling in the knee with this method. She is regaining slight function of dorsiflexion however this decreases greatly with distance. Discussed during team conference and feel that she would benefit from a custom posterior articulating AFO for the right foot. This will allow for improved ambulation, toe clearance and decreased loss of balance and improve her ability to regain functional mobility and independence. We will consult [facility] for manufacture of AFO to be delivered likely after discharge 05/25/2019. Tube feeding: Patient is currently tolerating Jevity 1.2. Previously she was on Isosource which caused nausea and vomiting every time she utilized this. Due to the nausea and vomiting she started using [id number] ensure and had significant weight loss and nutritional deficits. We'll recommend that she continue using Jevity due to her reaction to prior formulas. Once she is able to improve her swallowing and is cleared by Hem/Onc and or GI she may start oral trials.
[2019-05-25] MEDS: traZODone 50 MG TAB PO SCH (21:27)
[2019-05-26] MEDS: GABAPENTIN 500 MG/10 ML ORAL LIQD FEEDTUBE SCH ×2 (05:56→14:59)
[2019-05-26] MEDS: HEPARIN 5,000 UNIT/1 ML VIAL SUB-Q SCH ×2 (05:57→14:59)
[2019-05-26 08:10] VITALS: BP 123/66
[2019-05-26] MEDS: CLOPIDOGREL 75 MG TAB FEEDTUBE SCH (08:18)
[2019-05-26] MEDS: POLYETHYLENE GLYCOL 3350 17 GM POWDER FEEDTUBE SCH (08:18)
[2019-05-26] MEDS: carvediloL 25 MG TAB FEEDTUBE SCH (08:18)
[2019-05-26] MEDS: ASPIRIN 81 MG TAB CHEW FEEDTUBE SCH (08:19)
[2019-05-26] MEDS: amLODIPine 10 MG TAB FEEDTUBE SCH (08:19)
--- NOTE | 2019-05-26 13:51 | Discharge Summary ---
Providers - Providers Date of Admission: 05/03/19 12:58 Date of discharge: 05/26/19 Attending physician: GEORGIE MCKNIGHT III, MD 05/03/19 12:03 Consult to Dietitian/Nutrition [CONS] Routine Physician Instructions: Reason For Exam: Bolus TF 5x daily while awake Reason for Consult: Write/Manage Tube Feeding Occupational Therapy Evaluate and Treat [CONS] Routine Comment: Reason For Exam: ADL dysfunction Physical Therapy Evaluation and Treat [CONS] Routine Comment: Reason For Exam: Mobility Dysfunction Speech Therapy Evaluation and Treat [CONS] Routine Reason For Exam: CVA, Cog Eval. NPO due to radiation stricture 05/03/19 12:18 Consult to Case Management [CONS] Routine Services Needed at Discharge: Home Health Services Notified:: cm notified 05/03/19 12:25 Consult to Dietitian/Nutrition [CONS] Routine Physician Instructions: Assess nutrtn needs, initiate, modify, manage TF Reason For Exam: TF 5x daily-WA. NOT CONTINUOUS or PUMP Reason for Consult: Write/Manage Tube Feeding Reason for Consult: Write/Manage Tube Feeding Primary care physician: KEY NAVA Hospitalization Reason for admission: CVA Condition: Good Pertinent studies: Shoulder x-ray dated 05/05/2019: Mild degenerative changes seen in the right shoulder. No acute findings otherwise. Chest x-ray dated 05/10/2019:Can pulmonary or pleural abnormality noted acute findings. Hospital course: 53-year-old female who developed weakness in the right lower extremity and started having falls reported ED for further workup. 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 This is thought to possibly due to either cardioembolic versus endocarditis versus accelerated atherosclerotic disease secondary to radiation with a right ICA occlusion area echo showed ejection fraction 55% with grade 1 diastolic dysfunction and no PFO or valvular vegetations. Blood cultures showed no growth ruling out endocarditis. Patient was did not have atrial fibrillation in the hospital but has been referred to a ribbon lap machine tender as an outpatient for Holter monitoring for 30 days. She developed acute kidney injury which improved with IV fluids. Review of the roughly 120 pages of documents provided showed that she refused regular tube feedings even though she has a PEG. Apparently she was approved for clear liquids but she states that she still feels like she aspirates when attempting this. She was using commercial [id number]-fru-[id number] ensure bottles for nutrition following that with water and apple juice. After discussing with her the pitfalls with this and the determining that her primary issue with the tube feeds was the pump apparatus that was being used we have opted to start her on bolus feeding. We'll follow up with labs in the morning. She notes that she was taking Ambien for sleep however did not help that well in the hospital. We'll try trazodone and monitor for improvement. Also notes that her shoulder has been fairly sore but does not necessarily point to the shoulder joint itself more so on the bicep. CVA dominant right luis m-paresis: Continue secondary stroke prevention (antithrombotic, statin (goal LDLsee less than 70), BP control (goal less than 140/90), glucose control (goal A1c less than 7), and lifestyle modification). Monitor for recurrent stroke or poststroke recrudescence. Continue neuromotor therapy as above. Family training when available. Monitor for post stroke depression, cognitive effects, seizure, dysfunction, aphasia, shoulder-hand syndrome, sensory deficits, spasticity, bowel/bladder deficits, sleep disturbance, vision deficits and DVT. Prognosis for recovery and secondary stroke prevention discussed. Follow-up with neurology at discharge. No driving until cleared by neurologist. Neurologist recommended continuation of Plavix 75 mg daily and aspirin 81 mg daily for 3 months at which time she would stop and start taking aspirin 325 mg daily ongoing. She will need to have a follow- up with neurology and cardiology for 30 day Holter monitor. Hypertension stabilizing. Number medications reduced. Patient advised to monitor blood pressure at home and record her values on a daily basis to share with her PCP upon follow-up so that her blood pressure medications be adjusted as needed. Right shoulder pain improving. Shoulder x-ray as above showed degenerative changes. Chest x-ray showed degenerative changes bilaterally. Range of motion has improved significantly from initial exam. Patient still does not tolerate assisted range of motion but does tolerate active range of motion to a fairly functional level. Excessive drooling from radiation treatment, will avoid scopolamine. Will need Hem/Onc f/u after discharge CKD: Seems at baseline. Tolerating increased water flushes, monitor. Would recommend a recheck of BMP at follow-up with PCP and possible increase of water flushes. Asthma: Continue albuterol nebulizers when necessary. Insomnia: Seems to be improved with trazodone, continue to monitor Anemia: Improved. Last hemoglobin on 05/24/2019 was 11.5. 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 We will defer retesting for swallowing. Patient notes that GI attempted esophageal dilatation however could not accomplish this. May be able to reattempt at a later date. Tolerating feedings via bolus. Discussed with the patient the issue she had with tube feeding prior to this hospitalization. States that she was using Ensure as we discussed previously. She thinks that she was taking Isosource previously which was approved by her insurance company however she did not tolerate this and had severe nausea and vomiting every time that she utilized the formula. Due to this she started using [id number] Ensure as a replacement. We discussed that that is not a proper tube feeding replacement. She is tolerating Jevity well and due to her previous severe nausea and vomiting to Isosource we will discharge her with Jevity. Dietitian was consulted. Water flushes to avoid dehydration. Monitor labs on a frequent basis. PEG care. Patient remains a fall risk and does have loss of balance and buckling of her knee on occasion. At times she is able to ambulate without an AFO however can not do this for prolonged period time currently. We expect to see her continue to improve and at some point in the future may be able to stop her use of the AFO. She does have a walker at home. Due to her risk of falls and her need for assistance with ambulation and a in intermittent assistance availability she would be safer to have wheelchair available for a short term period. Time of discharge she was supervision for ADLs. She was able to ambulate with a rolling walker with min assist to supervision depending upon fatigue and time a day. Disposition: DC-01 TO HOME OR SELFCARE Time spent for discharge: >38min Core Measure Documentation - Palliative Care Palliative Care/ Comfort Measures: Not Applicable - Core Measures Any of the following diagnoses?: stroke - Stroke Discharge Requirements Statin for LDL = or >70 mg/dl on DC: Yes Anticoag for atrial fib/atrial flutter: Not Applicable Antithrombotic for ischemic stroke: Yes Exam - Physical Exam Narrative exam: MUSCULOSKELETAL SPECIALTY EXAM CONSTITUTIONAL: Well developed, well nourished, appropriately groomed. RIGHT hand dominant. RESPIRATORY: Clear to auscultation bilaterally, no increased work of breathing. CARDIOVASCULAR: Regular Rate/ Rhythm, no swelling, edema or tenderness in BUE or BLE. All extremities warm. GI: + bowel sounds, soft, NTTP, nondistended. PEG tube present. Excessive drooling due to radiation noted. INTEGUMENTARY: Normal, no lesion, rash, masses or bruising noted in extremities. MUSCULOSKELETAL: Point tenderness to palpation at the right anterior shoulder, otherwise BUE and BLE normal without defect, crepitus, subluxation, effusion, arthritic changes or TTP. RUE 4-/5 RLE 3/5 LUE / LLE 5/5 ROM decreased on right, within functional limit on the left Tone normal NEURO: CN II - XII grossly intact Sensation intact in all extremities without extinction. No tremor noted in 4 extremities. Naming and repetition intact. Follows commands. 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 Balance appears reasonable. Gait slowed with decreased clearance of the right lower extremity even with the use of AFO, improving but still a high fall risk. Will need short term rental for w/c (2-3months likely) until she has improved her balance and ability to ambulate safely. PSYCH: Alert, oriented x3, affect appears flat. Insight appears intact. - Constitutional Vitals: Temp Pulse Resp BP Pulse Ox 36.9 C 75 18 123/66 100 05/26/19 08:00 05/26/19 08:00 05/26/19 08:00 05/26/19 08:18 05/26/19 08:00 Plan Activity: advance as tolerated, no driving until cleared by PCP, up only with assistance, fall precautions Weight Bearing Status: Full Weight Bearing Diet: other (NPO. Jevity 1.2 (2) cans 3 times daily (gravity fed) with 150 mL's water flush before and after each feeding.) Special Instructions: record daily BP diary, follow up in rehab Durable Medical Equipment Needed Upon Discharge: Wheelchair (short term rental), other (3 in 1) Plan of Treatment: Patient will need follow-up with PCP for blood pressure monitoring, BMP, CBC. Her insurance also requires referral from her PCP for outpatient therapy and she will need physical therapy/occupational therapy for continued stroke recovery including ADL deficits, decreased range of motion of right upper extremity, mobility deficits, unsteadiness on feet, proper use of AFO and assistive devices. Recommendation by neurologist is to continue aspirin 81 mg and Plavix 75 mg for a total of 90 days. After that time she should convert to aspirin 325 mg daily ongoing. Uncertain if her insurance also requires PCP referral for other specialist. At any rate she will need to follow-up with a neurologist. I believe the [place] physician who saw her was Dr. Roni Baltazar. She will also need a follow-up with ribbon lap machine tender for 30 day Holter test and that physician is Dr. Demetrio Moe. Follow-up with her oncologist. Follow up with: KEY NAVA MD [Primary Care Provider] - 7 Days ANYA BALTAZAR MD [Staff] - 14 Days EDMETRIO MOE MD [Staff Physician] - 7 Days Prescriptions: traZODone [Desyrel] 50 mg PO QHS #30 tablet AtorvaSTATin [Lipitor] 40 mg FEEDTUBE QHS #30 tablet amLODIPine 10 mg FEEDTUBE QDAY #30 tablet Aspirin [Aspirin BABY CHEW TAB] 81 mg FEEDTUBE QDAY #30 tab.chew carvediloL [Coreg] 25 mg FEEDTUBE BID #60 tablet Polyethylene Glycol 3350 [Miralax 3350] 17 gm FEEDTUBE QDAY #30 powd.pack Gabapentin [Neurontin 250 mg/5 ml] 100 mg FEEDTUBE Q8HR 30 Days #180 oral.liqd oxyCODONE /ACETAMINOPHEN [Percocet 5/325 mg] 1 tab FEEDTUBE Q4H PRN #20 tablet PRN Reason: Pain, Moderate (4-6) Clopidogrel [Plavix] 75 mg FEEDTUBE QDAY #30 tablet
== END 2019-05-26 15:45 | disposition home or self-care (01) | DRG 65 ==
LOC: 3A 09:32 → UNDOADMIN 09:32 → 3B 12:58
PROVIDERS: ADMIT Physical Medicine & Rehabilitation; ATTEND Physical Medicine & Rehabilitation
DX: I63.9 Cerebral infarction, unspecified (principal); G81.91 Hemiplegia, unspecified affecting right dominant side; R13.10 Dysphagia, unspecified; J45.909 Unspecified asthma, uncomplicated; G47.00 Insomnia, unspecified; D64.9 Anemia, unspecified; R26.81 Unsteadiness on feet; R26.89 Other abnormalities of gait and mobility; M62.81 Muscle weakness (generalized); R53.83 Other fatigue; R53.81 Other malaise; I12.9 Hypertensive chronic kidney disease with stage 1 through stage 4 chronic kidney disease, or unspecified chronic kidney disease; N18.9 Chronic kidney disease, unspecified; Z90.49 Acquired absence of other specified parts of digestive tract; Z98.51 Tubal ligation status; Z93.1 Gastrostomy status; Z82.49 Family history of ischemic heart disease and other diseases of the circulatory system; Z79.899 Other long term (current) drug therapy
CPT/HCPCS: 36415; 71046; 80048; 80053; 82962; 83735; 84100; 84134; 85025; 85027; 94640; G0378; A9270-GY; J1644; J1650